=== PATIENT | female | born 1980 ===

== ENCOUNTER 2020-03-18 09:37 | Outpatient (REF) | payer OTHER, SELFPAY | END 2020-03-18 09:38 | disposition home or self-care (01) | LOC: HO.LAB 09:37 | PROVIDERS: PCP Internal Medicine; Visit Provider Internal Medicine | DX: Z20.828 Contact with and (suspected) exposure to other viral communicable diseases (principal) | CPT/HCPCS: C9803; U0003 ==

== ENCOUNTER 2020-03-24 15:59 | Outpatient (REF) | payer OTHER, SELFPAY ==
--- NOTE | 2020-03-24 | MR_ITS ---
EXAMINATION: MR BRAIN WITHOUT AND WITH CONTRAST CLINICAL INFORMATION: Pituitary microadenoma. COMPARISON: Brain MRI 05/15/2019. TECHNIQUE: Multiplanar MR imaging of the brain was performed without and with contrast. A total of 5 mL Gadavist was utilized for this examination.. FINDINGS: Again there is a well marginated enhancing intrasellar mass located along the right inferolateral aspect of the interlobar the pituitary gland best illustrated on sagittal image 11 of 18 series 11 that appears essentially unchanged when compared to most recent prior examination from 05/15/2019. The height of the pituitary tissue remains within limits of normal variation. No suprasellar mass effect or chiasmatic compression. The pituitary stalk is midline. Cavernous sinuses enhance symmetrically. Cavernous internal carotid artery flow voids are maintained. Postcontrast images of the whole brain reveal an ill-defined focus of enhancement within the alfredo to the right of midline. There is no corresponding abnormality demonstrated on the axial T2 FLAIR acquisition and enhancement characteristics have remained stable when compared to prior imaging. 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 There are a few scattered nonspecific foci of T2 FLAIR show hyperintensity within the periventricular white matter. No acute territorial infarct. Intracranial vascular flow voids are maintained. The cervicomedullary junction is normal. No acute bone marrow signal changes. There is no mastoid or middle ear effusion. Trivial mucosal thickening within ethmoid air cells. Globes and orbits are symmetric. MR/MR head/brain wo/w con IMPRESSION: Stable examination. The size of enhancing intrasellar mass along the right inferolateral aspect of the pituitary gland presumably representing a microadenoma has remained unchanged. 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
== END 2020-03-24 16:00 | disposition home or self-care (01) ==
LOC: HO.MRI 15:59
PROVIDERS: PCP Internal Medicine; Visit Provider Internal Medicine Endocrinology, Diabetes & Metabolism
DX: D35.2 Benign neoplasm of pituitary gland (principal)
CPT/HCPCS: 70553; A9585

== ENCOUNTER 2020-05-13 14:56 | Outpatient (REF) | payer OTHER, SELFPAY ==
[2020-05-13 16:39] LABS: Basophils Absolute Auto 0.1 X10*3/uL (0.0-0.2); Basophils Percent Auto 0.8 % (0-2); Eosinophils Absolute Auto 0.2 X10*3/uL (0.0-0.4); Eosinophils Percent Auto 2.3 % (0-4); Hematocrit 27.9 % (37-47); Hemoglobin 7.5 g/dl (12.0-16.0); Imm Gran Abs Auto 0.04 X10*3/uL (0.00-0.03); Imm Gran Pct Auto 0.4 % (0.0-0.4); Lymphocytes Absolute Auto 2.8 X10*3/uL (1.2-4.9); Lymphocytes Percent Auto 28.5 % (20-40); Mean Corpuscular HGB Conc 26.9 g/dl (31.0-35.0); Mean Platelet Volume 10.4 fL (9.4-12.3); Monocytes Absolute Auto 0.9 X10*3/uL (0.1-1.2); Monocytes Percent Auto 8.7 % (2-11); Neutrophils Absolute Auto 5.9 X10*3/uL (2.0-8.3); Neutrophils Percent Auto 59.3 % (45-73); Platelet Count 524 X10*3/uL (160-400); Red Blood Count 4.42 X10*6/uL (4.20-5.50); Red Cell Distribution Width 20.2 % (11.0-16.0); White Blood Count 9.9 X10*3/uL (4.8-10.8)
[2020-05-13 16:51] LABS: MANUAL DIFF FLAG SCAN; Mean Corpuscular Volume 63.1 fL (80-98)
[2020-05-13 17:02] LABS: Iron 16 mcg/dL (30-160); Percent Iron Saturation 3 % (15-50); Total Iron Binding Capacity 492 mcg/dL (228-428); Unsaturated Iron Binding 476 ug/dL
[2020-05-13 17:22] LABS: Syphilis Screen Nonreactive (Nonreactive)
[2020-05-13 17:34] LABS: Folate 13.9 ng/mL (> or = 4.0); Vitamin B12 189 pg/mL (200-900)
[2020-05-13 17:55] LABS: SLIDE REVIEW VERIFIED
[2020-05-14 04:44] LABS: HBsAGNum1 0.23 S/CO (0.00-0.99); HIV AB/AG Nonreactive (Nonreactive); HIV Num 1 0.07 S/CO (0.00-0.99); Hepatitis B Surface Antigen Negative (Negative); ~HepC Num1 0.18 S/CO (0.00-0.79); ~Hepatitis C Antibody Nonreactive (Nonreactive)
[2020-05-14 06:32] LABS: Prolactin 19.4 ng/mL
[2020-05-14 09:00] LABS: BV Int Neg Control Negative (Negative); BV Int Pos Control Positive (Positive)
[2020-05-14 17:38] LABS: C. trachomatis RNA TMA NOT DETECTED (NOT DETECTED); N. gonorrhoeae RNA TMA NOT DETECTED (NOT DETECTED)
[2020-05-17 00:42] LABS: HPV 16 RNA NOT DETECTED (NOT DETECTED); HPV mRNA E6/E7 rflx Detected (Not Detected)
== END 2020-05-13 14:57 | disposition home or self-care (01) ==
LOC: HO.LAB 14:56
PROVIDERS: PCP Internal Medicine; Visit Provider Advanced Practice Midwife
DX: Z01.411 Encounter for gynecological examination (general) (routine) with abnormal findings (principal); N63.20 Unspecified lump in the left breast, unspecified quadrant; N89.8 Other specified noninflammatory disorders of vagina; B37.2 Candidiasis of skin and nail; Z20.2 Contact with and (suspected) exposure to infections with a predominantly sexual mode of transmission
CPT/HCPCS: 36415; 82607; 82746; 83540; 84146; 85025; 85060; 86780; 86803; 87340; 87389; 87480; 87491; 87510; 87591; 87624; 87625; 87660; 88141; 88142

== ENCOUNTER 2020-05-21 08:14 | Outpatient (REF) | payer OTHER, SELFPAY ==
--- NOTE | 2020-05-21 | US_ITS ---
EXAMINATION: US DIAGNOSTIC ULTRASOUND BREAST, RIGHT CLINICAL INFORMATION: Density superior medial aspect. COMPARISON: Mammography of same day and December 14, 2016.. TECHNIQUE: Ultrasound of the breast is performed with real-time thrasher scale imaging and color Doppler. FINDINGS: Left breast ultrasound did not demonstrate any abnormal cystic or solid masses. No edematous change is identified. No region of abnormal distal sound shadowing. Ultrasound scanning about the superior medial aspect of the left breast did not demonstrate any abnormal cystic or solid mass or region of abnormal distal sound shadowing identified. Attempt at stereotactic core biopsy from a superior approach is recommended. Results are discussed with the patient at time of visit. [facility] patient navigator will call recommendation to referring provider's office. US/US breast RT limited IMPRESSION: Indeterminate persistent lesion on mammography about the superior medial aspect of the right breast with no ultrasound correlate. Recommend attempt at stereotactic biopsy. If this is not possible recommend 6 month follow-up mammography. ASSESSMENT: BI-RADS 4: Suspicious RECOMMENDATION: Right breast stereotactic core biopsy.
--- NOTE | 2020-05-21 08:20 | MM_ITS ---
EXAMINATION: MM DIAGNOSTIC DIGITAL BREAST TOMOSYNTHESIS, BILATERAL Bilateral breast ultrasound CLINICAL INFORMATION: Left breast lump/pain. The lifetime risk of breast cancer based on the Tyrer-Cuzick Model is 7.4%. COMPARISON: Mammography: 01/14/2017 TECHNIQUE: Digital breast tomosynthesis is performed in both the craniocaudal and mediolateral oblique views along with computer-aided detection (CAD). Synthesized 2D images are generated from the tomosynthesis. Right craniocaudal spot compression view as well as right craniocaudal rolled medial and lateral views. FINDINGS: There are scattered areas of fibroglandular density (ACR BI-RADS breast composition Category b). Left breast has a stable parenchymal pattern with no new abnormal dominant mass or suspicious grouping of microcalcifications. No region of architectural distortion is seen. Examination of the right breast demonstrated a 5 mm density of question slightly irregular margins about the superior medial aspect of the right breast lying approximately 7 cm from the nipple. Left breast ultrasound did not demonstrate any abnormal cystic or solid masses. No edematous change is identified. No region of abnormal distal sound shadowing. Ultrasound scanning about the superior-medial aspect of the left breast did not demonstrate any abnormal cystic or solid mass. No region of abnormal distal sound shadowing identified. Attempt at stereotactic core biopsy from a superior approach is recommended. Results are discussed with the patient at time of visit. [facility] Patient Navigator will call recommendation to referring provider's office. MM/MM tomosynthesis diagnostic BI IMPRESSION: Indeterminate persistent lesion on mammography about the superior-medial aspect of the right breast with no ultrasound correlate. Recommend attempt at stereotactic biopsy. If this is not possible, recommend 6-month follow-up mammography. No suspicious left breast findings. ASSESSMENT: BI-RADS 4: Suspicious. RECOMMENDATION: Right breast stereotactic core biopsy.
--- NOTE | 2020-05-21 08:20 | US_ITS ---
EXAMINATION: US DIAGNOSTIC ULTRASOUND BREAST, LEFT CLINICAL INFORMATION: Pain/lump left breast. COMPARISON: Mammography of same day and December 14, 2016. TECHNIQUE: Ultrasound of the breast is performed with real-time thrasher scale imaging and color Doppler. FINDINGS: Left breast ultrasound did not demonstrate any abnormal cystic or solid masses. No edematous change is identified. No region of abnormal distal sound shadowing. Ultrasound scanning about the superior medial aspect of the left breast did not demonstrate any abnormal cystic or solid mass or region of abnormal distal sound shadowing identified. Attempt at stereotactic core biopsy from a superior approach is recommended. Results are discussed with the patient at time of visit. [facility] patient navigator will call recommendation to referring provider's office. US/US breast LT limited IMPRESSION: Indeterminate persistent lesion on mammography about the superior medial aspect of the right breast with no ultrasound correlate. Recommend attempt at stereotactic biopsy. If this is not possible recommend 6 month follow-up mammography. ASSESSMENT: BI-RADS 4: Suspicious RECOMMENDATION: Right breast stereotactic core biopsy.
== END 2020-05-21 08:15 | disposition home or self-care (01) ==
LOC: HO.MAMMO 08:14
PROVIDERS: Visit Provider Advanced Practice Midwife
DX: N63.21 Unspecified lump in the left breast, upper outer quadrant (principal); R92.2 Inconclusive mammogram
CPT/HCPCS: 76642; 77062; 77066

== ENCOUNTER → 2020-05-22 09:19 | Outpatient (BNVA) | payer OTHER, SELFPAY | PROVIDERS: PCP Internal Medicine; Referring Provider Internal Medicine; Visit Provider Internal Medicine Endocrinology, Diabetes & Metabolism ==

== ENCOUNTER → 2020-05-26 10:53 | Outpatient (BNVA) | payer OTHER, SELFPAY | PROVIDERS: PCP Internal Medicine; Visit Provider Surgery | DX: R92.8 Other abnormal and inconclusive findings on diagnostic imaging of breast (principal) | CPT/HCPCS: 99202 ==

== ENCOUNTER 2020-05-27 09:55 | Outpatient (REF) | payer OTHER, SELFPAY ==
--- NOTE | ~2020-05-27 | US_ITS ---
EXAMINATION: STEREOTACTIC TOMOSYNTHESIS TARGETING, RIGHT US DIAGNOSTIC ULTRASOUND, RIGHT CLINICAL INFORMATION: Indeterminate nodule superior 12:30 o'clock right breast with no ultrasound correlate. Attempted stereotactic sampling is suggested. COMPARISON: Mammography 05/21/2020, 12/14/2016, targeted right breast ultrasound 05/21/2020. STEREO TARGETING: Informed consent was obtained from the patient using hospital provided housing case manager after discussion of the benefits, risks, and alternatives to biopsy today. Patient appeared to understand. Gave opportunity for questions. Patient signed consent form. [employer] Affirm Prone Biopsy System used for targeting from a CC approach. The nodule is identified but resides on initial tomographic sections at skin level. BB placed and breast rolled and reimaged with similar outcome. No other nodularity demonstrated. Skin marker used to for cervical around area of stereotactic targeting. Patient then brought to ultrasound for further diagnostic ultrasound assessment to determine if a intradermal lesion or subdermal lesion can be identified. ULTRASOUND, RIGHT: High frequency linear ultrasound is performed targeted to the area of stereotactic interest. Grayscale imaging is performed without and with harmonics and color Doppler. FINDINGS: No cystic or solid mass or focal dermal thickening is demonstrated. MANAGEMENT: Stereotactic targeting suggest superficial lesion within the skin. No ultrasound correlate. Tissue sampling not performed. Results are discussed with the patient at time of appointment. Results called and discussed with Dr. Holland along with management options including surgical excision if palpable, short interval 6 month follow up mammography, and diagnostic breast MRI. Patient asked to keep appointment with Dr. Holland for next week. ASSESSMENT: BI-RADS 3: Probably Benign RECOMMENDATIONS: Patient to follow up appointment with Dr. Holland. Diagnostic right mammography in 6 months.
== END 2020-05-27 09:56 | disposition home or self-care (01) ==
LOC: HO.MAMMO 09:55
PROVIDERS: Visit Provider Surgery
DX: R92.8 Other abnormal and inconclusive findings on diagnostic imaging of breast (principal)
CPT/HCPCS: 19081; 76642

== ENCOUNTER → 2020-06-10 09:32 | Outpatient (BNVA) | payer OTHER, SELFPAY | PROVIDERS: PCP Internal Medicine; Visit Provider Surgery | DX: R92.8 Other abnormal and inconclusive findings on diagnostic imaging of breast (principal) | CPT/HCPCS: 99212 ==

== ENCOUNTER 2020-06-22 08:42 | Day surgery (SDC) | payer OTHER, SELFPAY ==
[2020-06-12 11:40] VITALS: BMI 44.6
[2020-06-22] MEDS: Lactated Ringers 1,000 ML 100 ML IVCONT (10:08)
[2020-06-22 10:09] VITALS: BP 94/53; PULSE 51; RESP 16; TEMP 36.8; O2SAT 99
--- NOTE | 2020-06-22 10:27 | MHC.SHP ---
Pre-Procedural Eval Section A The patient is an INPATIENT: No Changes since office visit: Yes Patient answered all questions; No Cold of Flu in the past 2 weeks, No New Medical Problems and No Changes in Medication The History & Physical has been completed within 30 days and I have reviewed it.: Yes Section B Chief Complaint: Abnormal mammogram of right breast Allergies: Allergies Allergy/AdvReac Type Severity Reaction Status Date / Time No Known Allergies Allergy Verified 06/10/20 09:48 [No Known Allergies*] Plan Diagnosis/Plan: Unchanged I have reviewed the history and physical and performed a pertinent physical examination on my patient. No changes have occurred unless specified.
--- NOTE | 2020-06-22 10:33 | HO.ANESPROP2 ---
[facility] Active Problems Active Problems: All Active Problems (Updated 06/12/20 @ 11:21 by Renata Darden) Abnormal mammogram of right breast (Acute) Michael's disease (Acute) Lumbar radiculopathy (Acute) Headache (Acute) Pituitary microadenoma (Acute) Anemia (Acute) Past Medical History Medical History Anemia Anxiety Depression Michael's disease Headache Lumbar radiculopathy Morbid obesity with BMI of 50.0-59.9, adult Panic attacks Pituitary microadenoma Family History Family History Father Hypertension Mother Hypertension Maternal Grandmother Leukemia Paternal Grandmother Myocardial infarction Hypertension Maternal Aunt History of breast cancer Maternal Aunt History of breast cancer Maternal Aunt History of breast cancer Paternal Aunt History of breast cancer Paternal Aunt History of breast cancer Family history of problems with anesthesia: No Surgical History Surgical History History of appendectomy History of laparoscopic cholecystectomy History of Lulu-en-Y gastric bypass History of sleeve gastrectomy History of tubal ligation History of tympanostomy tube placement History of Problems with Anesthesia: No Social History Social History Household Members: Family Are you a primary healthcare marketer to a significant other at home: No Do you presently have visiting nurse or other home services: No Smoking Status: Never smoker Use of substances other than those prescribed or required for medical reasons: No Have you been hit, kicked, punched, or otherwise hurt by someone within the past year? If so, by whom?: No Advance Directives: No Advance Directives Information Provided: No Advance Directives on File: No Recently lost weight without trying: No Meds Allergies Allergy/AdvReac Type Severity Reaction Status Date / Time No Known Allergies Allergy Verified 06/10/20 09:48 [No Known Allergies*] Active Medications: Current Medications Generic Name Dose Route Start Last Admin Trade Name Freq PRN Reason Stop Dose Admin Lactated Ringer's 1,000 mls @ 100 mls/hr 06/22/20 09:15 06/22/20 10:08 Lr IVCONT 100 mls/hr .Q10H PHILIP Administration Home Medications Medication Instructions Recorded Confirmed Last Taken Type sumatriptan succinate 1 tab PO DIRECTED PRN 06/12/20 06/12/20 Unknown History topiramate 1 tab PO DAILY 06/12/20 06/12/20 Unknown History Exam Exam Date and Time: June 22, 2020 1033 Height,Weight and Vital Signs: Height 5 ft 2 in Weight 110.677 kg Last Vital Signs Temp 98.2 F 06/22/20 10:09 Pulse 51 06/22/20 10:09 Resp 16 06/22/20 10:09 BP 94/53 L 06/22/20 10:09 Pulse Ox 99 06/22/20 10:09 Airway Mallampati Class: I TM Dist: >3cm Neck ROM: Full Heart: ok Lungs: ok Assessment and Plan Assessment Anesthesia Assessment: Anesthesia Plan Discussed and Chart Reviewed Final Anesthetic Review NPO: Yes ASA Class: III Final Preanesthetic Review: No Changes in Pt Med Stat, Meds/Allgs Chart Reviewed, Consent Obtained/Reviewed and Anes Risks/Benef Reviewed Patient Risk: Intermediate Procedure Risk: Low Anesthetic Plan Anesthetic Plan: MAC: Disposition: Standard PACU
--- NOTE | 2020-06-22 11:18 | P.OP_ITS ---
Operative Note Operative Note Date of Service: 06/22/20 Narrative: Preoperative diagnosis: Right breast mass Postoperative diagnosis: Same Procedure: Excision right breast mass Surgeon: Melchor Holland MD Production Control Scheduler: Pura Sanchez PA-C Anesthesia: Mac Indications for procedure: 40-year-old female patient presenting with a palpable mass in the right breast. Lesion could not be identified by mammogram or ultrasound. On examination lesion is located in the 1 o'clock position. Operative findings: Palpable mass measuring approximately 1 cm in diameter located within the superficial breast tissue Specimen: Right breast mass Estimated blood loss: 5 mL Complications: None Procedure details: Patient was brought to the OR placed in a supine position. After administering light sedation the patient's right breast was prepped with ChloraPrep and draped in a sterile fashion. A surgical time-out was called and consent confirmed. Patient received preoperative antibiotics and Venodyne boots were in place. Local anesthesia consisting of 1% lidocaine plain was infiltrated directly over the mass in a transverse fashion. A transverse incision was then created with a scalpel carried out through subcutaneous tissue. Superior and inferior skin flaps were then created. Sharp dissection using Metzenbaum scissors was then used to excise around the palpable mass. The margins of this specimen were then marked using a long suture on the lateral margin short suture on the superior margin and loop suture on the deep margin. The specimen was sent to pathology for routine pathology. After assuring adequate hemostasis the skin was closed using a running eddy bcuticular 4 0 Polysorb suture. Steri-Strips 2 x 2 gauze and Tegaderm were then applied. Patient tolerated the procedure well. Sponge, instrument, needle counts reported as correct. The patient was transferred to PACU in stable condition.
--- NOTE | 2020-06-22 11:25 | P.BOP_ITS ---
Brief Operative Note Date of Service: 06/22/20 Pre-op diagnosis: right breast mass Post-op diagnosis: same Procedure: excision of right breast mass Surgeon: BEAR MONAHAN MD Anesthesia: MAC [employer] Regrooving Machine Operator: Pura Sanchez Estimated blood loss (mL): 5 Pathology: other (RIGHT BREAST MASS) Condition: stable Disposition: PACU
[2020-06-22 11:32] VITALS: BP 98/62; PULSE 53; RESP 16; TEMP 36; O2SAT 100
[2020-06-22 11:45] VITALS: BP 118/60; PULSE 49; RESP 18
== END 2020-06-22 12:50 ==
LOC: HO.SSS 08:43
PROVIDERS: PCP Internal Medicine; Visit Provider Surgery
PROC: (CPT 19120; principal; 2020-06-22 10:20)
DX: N63.12 Unspecified lump in the right breast, upper inner quadrant (principal); E06.3 Autoimmune thyroiditis; D64.9 Anemia, unspecified; F32.9 Major depressive disorder, single episode, unspecified; E66.01 Morbid (severe) obesity due to excess calories; Z68.41 Body mass index [BMI] 40.0-44.9, adult; Z79.899 Other long term (current) drug therapy
CPT/HCPCS: 19120; 88307; J0690; J2250; J3010

== ENCOUNTER → 2020-07-03 09:01 | Outpatient (BNVA) | payer OTHER, SELFPAY | PROVIDERS: PCP Internal Medicine; Visit Provider Surgery | DX: R92.8 Other abnormal and inconclusive findings on diagnostic imaging of breast (principal) | CPT/HCPCS: 99212 ==

== ENCOUNTER 2020-08-25 07:55 | Outpatient (REF) | payer OTHER, SELFPAY ==
[2020-08-26 08:18] LABS: HBsAGNum1 0.27 S/CO (0.00-0.99); Hepatitis B Surface Antigen Negative (Negative)
[2020-08-26 08:34] LABS: HIV AB/AG Nonreactive (Nonreactive); HIV Num 1 0.06 S/CO (0.00-0.99); ~HepC Num1 0.18 S/CO (0.00-0.79); ~Hepatitis C Antibody Nonreactive (Nonreactive)
[2020-08-26 09:20] LABS: Syphilis Screen Nonreactive (Nonreactive)
== END 2020-08-25 07:56 | disposition home or self-care (01) ==
LOC: HO.LAB 07:55
PROVIDERS: PCP Internal Medicine; Visit Provider Obstetrics & Gynecology
DX: A60.00 Herpesviral infection of urogenital system, unspecified (principal)
CPT/HCPCS: 86780; 86803; 87255; 87340; 87389; 99212

== ENCOUNTER 2020-09-04 16:42 | Outpatient (REF) | payer OTHER, SELFPAY ==
[2020-09-05 10:20] LABS: CT PCR NOT DETECTED (Not Detect.); NG PCR NOT DETECTED (Not Detect.)
== END 2020-09-04 16:43 | disposition home or self-care (01) ==
LOC: HO.LNP 16:42
PROVIDERS: Visit Provider Obstetrics & Gynecology
DX: Z11.3 Encounter for screening for infections with a predominantly sexual mode of transmission (principal); A60.00 Herpesviral infection of urogenital system, unspecified
CPT/HCPCS: 87491; 87591

== ENCOUNTER → 2020-09-08 08:01 | Outpatient (BNVA) | payer OTHER, SELFPAY | PROVIDERS: PCP Internal Medicine; Visit Provider Obstetrics & Gynecology | DX: A60.00 Herpesviral infection of urogenital system, unspecified (principal) | CPT/HCPCS: 99212 ==

== ENCOUNTER 2020-11-24 13:37 | Outpatient (REF) | payer OTHER, SELFPAY | END 2020-11-24 13:38 | disposition home or self-care (01) | LOC: HO.MAMMO 13:37 | PROVIDERS: PCP Internal Medicine; Visit Provider Surgery | DX: Z13.89 Encounter for screening for other disorder (principal) ==

== ENCOUNTER 2021-03-01 06:04 | Emergency (ER) | payer OTHER, SELFPAY ==
[2021-03-01 06:32] VITALS: BP 116/46; PULSE 55; RESP 16; TEMP 36.9; O2SAT 100; BMI 44.8
--- NOTE | 2021-03-01 06:39 | ED_ITS ---
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 This has not been associated with any fever, chills, sick contacts. Related Data Home Medications Medication Instructions Recorded Confirmed sumatriptan succinate 25 mg tablet 1 tab PO DIRECTED PRN 06/12/20 09/02/20 topiramate 25 mg tablet 1 tab PO DAILY 06/12/20 09/02/20 cyanocobalamin (vitamin B-12) 1,000 mcg PO DAILY 07/03/20 09/02/20 1,000 mcg tablet Previous Rx's Medication Instructions Recorded acetaminophen 650 mg 650 mg PO Q8H PRN 30 Days #90 tab 05/13/20 tablet,extended release (Mapap Arthritis Pain) folic acid 1 mg tablet 1 mg PO DAILY 90 Days #90 tab 05/13/20 metronidazole 0.75 % vaginal gel 1 appful VAGINAL BEDTIME 5 Days 05/22/20 (Metrogel Vaginal) #70 g valacyclovir 1 gram tablet 1,000 mg PO BID 10 Days #20 tab 08/25/20 sennosides 8.6 mg capsule (senna) 8.6 mg PO BEDTIME PRN 90 Days #90 09/02/20 cap valacyclovir 500 mg tablet 500 mg PO BID 3 Days #6 tab 09/08/20 (Valtrex) ferrous sulfate 325 mg (65 mg 325 mg PO TID 30 Days #90 tab 12/14/20 iron) tablet Allergies Allergy/AdvReac Type Severity Reaction Status Date / Time No Known Allergies Allergy Verified 03/01/21 06:47 [No Known Allergies*] Review of Systems Review of Systems: Pertinent positives and negatives as stated in HPI 10 point review systems is otherwise negative. [facility] Past Medical History Source: nursing notes reviewed Medical History Anemia Anxiety B12 deficiency Constipation by delayed colonic transit Depression Michael's disease Headache Iron deficiency anemia Lumbar radiculopathy Morbid obesity with BMI of 50.0-59.9, adult Panic attacks Pituitary microadenoma Surgical History History of appendectomy History of laparoscopic cholecystectomy History of Lulu-en-Y gastric bypass History of sleeve gastrectomy History of tubal ligation History of tympanostomy tube placement Family History Family History Father Hypertension Mother Hypertension Maternal Grandmother Leukemia Paternal Grandmother Myocardial infarction Hypertension Maternal Aunt History of breast cancer Maternal Aunt History of breast cancer Maternal Aunt History of breast cancer Paternal Aunt History of breast cancer Paternal Aunt History of breast cancer Social History Social History Household Members: Family Are you a primary care companion to a significant other at home: No Do you presently have visiting nurse or other home services: No Advance Directives: No Advance Directives Information Provided: No Patient : No Physical Exam Vital Signs: Vital Signs: Last Vital Signs Temp 98.4 F 03/01/21 06:32 Pulse 55 03/01/21 06:32 Resp 16 03/01/21 06:32 BP 116/46 L 03/01/21 06:32 Pulse Ox 100 03/01/21 06:32 Body Mass Index 44.8 VITAL SIGNS: Reviewed. GENERAL: Well developed, well nourished, in no acute distress. HEAD: Normocephalic/atraumatic EYES: PERRLA, EOMI EARS: Ext canals without abnormality, TMs non-bulging and non-erythematous, small P-sized lymph node behind the left ear without erythema/induration but tenderness on palpation NOSE: Nares patent bilateral OROPHARYNX: no oral lesions noted, posterior pharynx clear with erythematous without tonsillar enlargement or exudate NECK: Supple, no adenopathy LUNGS: Normal breath sounds. No adventitious sounds or accessory muscle use. SpO2<100> CARDIOVASCULAR: Regular rate and rhythm without noted murmurs ABDOMEN: Soft, non-tender, non-distended with bowel sounds. SKIN: Inspection of the skin reveals no rashes NEUROLOGIC: Alert and oriented x 4. Strength and sensation to light touch were grossly intact x 4. Course Course Course Narrative: 40-year-old female with history and clinical presentation suggestive of pharyngitis but no evidence to support AOM. The small lymphadenopathy noted at the posterior left ear likely reactive in nature. Patient will receive combination analgesics and is pending strep/COVID swab. Signed out to Dr Rodney. Discharge Plan Discharge Clinical Impression: Pharyngitis, Adenopathy Patient Disposition: Still a Patient Instructions: Pharyngitis (ED) Additional Instructions: 1. Tylenol 1000 mg, por v?a oral, cada 6 horas seg?n sea necesario para controlar el dolor. No exceda los 4000 mg en 24 horas. 2. Ibuprofeno 400 mg, por v?a oral con leche o alimentos, cada 6 horas seg?n sea necesario para controlar el dolor. 3. g?rgaras con soluci?n salina (esto se hace mezclando amari de lin con agua tibia del grifo) Regrese a la liborio de emergencias por un empeoramiento alissa de los s?ntomas. Prescriptions: No Action acetaminophen [Mapap Arthritis Pain] 650 mg tablet extended release 650 mg PO Q8H PRN (Reason: pain) 30 Days Qty: 90 RF: 3 folic acid 1 mg tablet 1 mg PO DAILY 90 Days Qty: 90 RF: 3 metronidazole [Metrogel Vaginal] 0.75 % gel 1 appful vaginal BEDTIME 5 Days Qty: 70 RF: 0 ferrous sulfate 325 mg (65 mg iron) tablet 325 mg PO TID 30 Days Qty: 90 RF: 6 sumatriptan succinate 25 mg tablet 1 tab PO DIRECTED PRN (Reason: Headache) RF: 0 topiramate 25 mg tablet 1 tab PO DAILY RF: 0 senna 8.6 mg capsule 8.6 mg PO BEDTIME PRN (Reason: constipation) 90 Days Qty: 90 RF: 1 cyanocobalamin (vitamin B-12) 1,000 mcg tablet 1,000 mcg PO DAILY RF: 0 valacyclovir 1 gram tablet 1,000 mg PO BID 10 Days Qty: 20 RF: 0 valacyclovir [Valtrex] 500 mg tablet 500 mg PO BID 3 Days Qty: 6 RF: 6 Referrals: Ila Brown MD [Primary Care Provider] - 2 days Print Language: Bulgarian
[2021-03-01] MEDS: Acetaminophen 325 MG TABLET 975 MG PO (06:46)
[2021-03-01 07:07] LABS: IDNOW Serial# 08D9AD1C; Strep A Nucleic Acid Negative (Negative)
[2021-03-01 07:08] LABS: COVID-19 Test Negative (Negative); IDNOW Serial# 9DD0AD1C
[2021-03-01 07:58] VITALS: BP 99/48; PULSE 60; RESP 18; TEMP 36.6; O2SAT 100
== END 2021-03-01 08:05 | disposition still patient (30) ==
PROVIDERS: Student in an Organized Health Care Education/Training Program; Emergency Provider Emergency Medicine; PCP Internal Medicine
DX: J02.9 Acute pharyngitis, unspecified (principal); R59.9 Enlarged lymph nodes, unspecified; Z20.822 Contact with and (suspected) exposure to COVID-19
CPT/HCPCS: 36415; 87635; 87651; 99283; 99284

== ENCOUNTER 2021-05-24 13:10 | Outpatient (REF) | payer OTHER, SELFPAY ==
--- NOTE | ~2021-05-24 | MM_ITS ---
EXAMINATION: MM DIAGNOSTIC DIGITAL BREAST TOMOSYNTHESIS, BILATERAL CLINICAL INFORMATION: Due for yearly. Status post benign right breast surgery 06/22/2020 (benign breast tissue with ruptured cyst, no atypia or malignancy identified). Family history breast cancer, mother. The lifetime risk of breast cancer based on the Tyrer-Cuzick Model is 21.1%. COMPARISON: Mammography: 05/27/2020, 05/21/2020, 12/14/2016 (baseline, diagnostic). TECHNIQUE: Digital breast tomosynthesis is performed in both the craniocaudal and mediolateral oblique views along with computer-aided detection (CAD). Synthesized 2D images are generated from the tomosynthesis. Scar marker placed on right CC and right MLO views. FINDINGS: There are scattered areas of fibroglandular density (ACR BI-RADS breast composition Category b). There are no significant masses, abnormal calcifications, or other abnormalities. Superficial nodular lesion noted previously is no longer demonstrated. Parenchymal pattern is otherwise similar to prior studies. No developing density or interval architectural abnormality. Results are provided to the patient at time of visit by the technologist. MM/MM tomosynthesis diagnostic BI IMPRESSION: No mammographic evidence of malignancy. ASSESSMENT: BI-RADS 2: Benign RECOMMENDATION: 1. Routine annual mammography screening. 2. The lifetime risk of breast cancer based on the Tyrer-Cuzick Model is 21%. Additional annual adjunct screening with breast MRI may be of benefit in women with a risk score of 20% or greater. This patient's information was entered into a reminder system with a target due date for their next mammogram.
== END 2021-05-24 13:11 | disposition home or self-care (01) ==
LOC: HO.MAMMO 13:10
PROVIDERS: PCP Internal Medicine; Visit Provider Surgery
DX: R92.2 Inconclusive mammogram (principal)
CPT/HCPCS: 77062; 77066

== ENCOUNTER 2021-06-08 14:12 | Outpatient (REF) | payer OTHER, SELFPAY ==
[2021-06-08 18:12] LABS: CT PCR NOT DETECTED (Not Detect.); NG PCR NOT DETECTED (Not Detect.)
[2021-06-13 14:47] LABS: HPV 16 RNA NOT DETECTED (NOT DETECTED); HPV mRNA E6/E7 rflx Detected (Not Detected)
== END 2021-06-08 14:13 | disposition home or self-care (01) ==
LOC: HO.LAB 14:12
PROVIDERS: Visit Provider Obstetrics & Gynecology
DX: Z01.411 Encounter for gynecological examination (general) (routine) with abnormal findings (principal); Z11.51 Encounter for screening for human papillomavirus (HPV); N93.9 Abnormal uterine and vaginal bleeding, unspecified; Z20.2 Contact with and (suspected) exposure to infections with a predominantly sexual mode of transmission
CPT/HCPCS: 87491; 87591; 87624; 87625; 88142; 99212

== ENCOUNTER 2021-06-25 07:30 | Outpatient (REF) | payer OTHER, SELFPAY ==
[2021-06-25 08:18] LABS: Hematocrit 27.1 % (37.0-47.0); Hemoglobin 7.1 g/dl (12.0-16.0); Mean Corpuscular HGB Conc 26.2 g/dl (31.0-35.0); Mean Corpuscular Hemoglobin 16.2 pg (27.0-33.0); Mean Platelet Volume 10.2 fL (9.4-12.3); Platelet Count 495 X10*3/uL (160-400); Red Blood Count 4.38 X10*6/uL (4.20-5.50); Red Cell Distribution Width 21.2 % (11.0-16.0); White Blood Count 12.3 X10*3/uL (4.8-10.8)
[2021-06-25 08:19] LABS: Mean Corpuscular Volume 61.9 fL (80.0-98.0)
[2021-06-25 08:49] LABS: Alanine Aminotransferase 11 U/L (0-31); Albumin Level 3.8 g/dL (3.5-5.0); Alkaline Phosphatase 78 U/L (39-117); Anion Gap 12 (12-20); Aspartate Amino Transferase 13 U/L (5-31); Bilirubin Total 1.2 mg/dL (0.0-1.0); Blood Urea Nitrogen 22 mg/dL (9-16); Carbon Dioxide 24 mmol/L (22-29); Chloride 107 mmol/L (96-108); Cholesterol 149 mg/dL; Estimated Glomerular Filt Rate > 60; Glucose Fasting 78 mg/dL (60-99); HDL Cholesterol 45 mg/dL; Iron 14 mcg/dL (30-160); LDL Cholesterol Calculated 79 mg/dl; Percent Iron Saturation 3 % (15-50); Potassium 4.1 mmol/L (3.3-5.1); Sodium 139 mmol/L (135-145); Total Iron Binding Capacity 489 mcg/dL (228-428); Total Protein 6.9 g/dL (6.5-8.0); Triglycerides 127 mg/dL; Unsaturated Iron Binding 475 ug/dL
[2021-06-25 09:10] LABS: HCG Quantitative < 2 mIU/mL; TSH reflex Free T4 4.46 uIU/mL (0.32-4.0)
[2021-06-25 09:43] LABS: Free T4 (Free Thyroxine) 0.99 ng/dL (0.71-1.85)
[2021-06-25 13:23] LABS: Folate 9.7 ng/mL (> or = 4.0); Vitamin B12 269 pg/mL (200-900)
[2021-06-29 18:16] LABS: Intrinsic Factor Antibodies Negative (Negative)
[2021-06-30 12:17] LABS: Parietal Cell Antibody 26.7 Unit (<=20.0)
[2021-07-01 08:06] LABS: Vitamin D 25-OH, D2 <4 ng/mL; Vitamin D 25-OH, D3 16 ng/mL; Vitamin D 25-OH, Total 16 ng/mL (30-100)
== END 2021-06-25 07:31 | disposition home or self-care (01) ==
LOC: HO.LAB 07:30
PROVIDERS: Absent Provider Internal Medicine; PCP Internal Medicine; Visit Provider Obstetrics & Gynecology
DX: Z00.00 Encounter for general adult medical examination without abnormal findings (principal); E78.5 Hyperlipidemia, unspecified; D50.0 Iron deficiency anemia secondary to blood loss (chronic); E53.8 Deficiency of other specified B group vitamins; E55.9 Vitamin D deficiency, unspecified; N93.9 Abnormal uterine and vaginal bleeding, unspecified
CPT/HCPCS: 36415; 80053; 80061; 82306; 82607; 82746; 83516; 83540; 84439; 84443; 84702; 85027; 86340

== ENCOUNTER 2021-06-30 13:41 | Outpatient (REF) | payer OTHER, SELFPAY ==
--- NOTE | ~2021-06-30 | US_ITS ---
EXAMINATION: US PELVIS CLINICAL INFORMATION: Abnormal uterine and vaginal bleeding. COMPARISON: None TECHNIQUE: Ultrasound of the pelvis is performed using both transabdominal and transvaginal transducers along with Doppler. Transvaginal imaging is performed due to inadequate visualization transabdominally. FINDINGS: Uterus: The uterus is anteverted and measures 9.7 x 5.0 x 6.3 cm. The double wall endometrial thickness is 1.0 mm. The uterus is smooth in contour and has normal myometrial echogenicity. There is a 1.7 x 1.8 x 2.0 cm fibroid near the fundus on the left which is smaller than previously noted 2.1 x 2.4 x 2.1 cm. No other uterine masses are seen. Adnexa: Neither ovary could be seen despite both transabdominal and endovaginal scanning. No free intraperitoneal fluid is present. US/US pelvic and transvaginal IMPRESSION: Slight decrease in size of solitary uterine fibroid. The ovaries were not visualized.
== END 2021-06-30 13:42 | disposition home or self-care (01) ==
LOC: HO.US 13:41
PROVIDERS: PCP Internal Medicine; Visit Provider Obstetrics & Gynecology
DX: N93.9 Abnormal uterine and vaginal bleeding, unspecified (principal)
CPT/HCPCS: 76830; 76856

== ENCOUNTER 2021-07-01 16:22 | Outpatient (REF) | payer OTHER, SELFPAY ==
--- NOTE | ~2021-07-01 | MR_ITS ---
EXAMINATION: MR BREAST WITHOUT AND WITH CONTRAST, BILATERAL CLINICAL INFORMATION: High-risk screening. Risk of breast cancer greater than 20%. COMPARISON: No previous breast MRI. TECHNIQUE: Imaging was performed with a dedicated breast coil. Prior to the administration of contrast, bilateral axial T1 and bilateral axial T2 weighted sequences were obtained. After the uneventful administration of?10 mL of Gadavist, dynamic contrast-enhanced VIBRANT series through the breasts in the axial plane were performed. Subtracted images were performed and reviewed. A delayed sagittal sequence through both breasts was acquired. Additionally, CAD post-processing, including maximum intensity projections, 3-D reconstructions and kinetic analysis, were performed an independent workstation and reviewed by the interpreting radiologist is a portion of this exam. FINDINGS: The patient's fibroglandular tissue demonstrates moderate background enhancement. LEFT BREAST: No suspicious masslike or non-masslike enhancement. No abnormal skin thickening or nipple retraction. No abnormal architectural distortion. Review of the T2 weighted images demonstrates no fibrocystic changes or dilated ducts. Review of kinetic images reveals no additional findings. RIGHT BREAST: No suspicious masslike or non-masslike enhancement. No abnormal skin thickening or nipple retraction. No abnormal architectural distortion. Review of the T2 weighted images demonstrates no fibrocystic changes or dilated ducts. Review of kinetic images reveals no additional findings. There is no suspicious internal mammary chain or axillary adenopathy. Limited views of the chest and abdomen are unremarkable. MR/MR breast BI wo/w con IMPRESSION: No MR specific evidence of malignancy. ASSESSMENT: LEFT BREAST: BI-RADS 1-Negative RIGHT BREAST: BI-RADS 1-Negative RECOMMENDATIONS: Clinical follow-up
== END 2021-07-01 16:23 | disposition home or self-care (01) ==
LOC: HO.MRI 16:22
PROVIDERS: Visit Provider Obstetrics & Gynecology
DX: Z91.89 Other specified personal risk factors, not elsewhere classified (principal)
CPT/HCPCS: 77049; A9585

== ENCOUNTER → 2021-07-07 13:50 | Outpatient (BNVA) | payer OTHER, SELFPAY | PROVIDERS: PCP Internal Medicine; Visit Provider Internal Medicine Endocrinology, Diabetes & Metabolism | DX: D35.2 Benign neoplasm of pituitary gland (principal); R79.89 Other specified abnormal findings of blood chemistry | CPT/HCPCS: 99212 ==

== ENCOUNTER 2021-07-13 11:14 | Outpatient (REF) | payer OTHER, SELFPAY | END 2021-07-13 11:15 | disposition home or self-care (01) | LOC: HO.LAB 11:14 | PROVIDERS: Visit Provider Obstetrics & Gynecology | DX: R87.610 Atypical squamous cells of undetermined significance on cytologic smear of cervix (ASC-US) (principal); R87.810 Cervical high risk human papillomavirus (HPV) DNA test positive; N93.9 Abnormal uterine and vaginal bleeding, unspecified; R94.6 Abnormal results of thyroid function studies | CPT/HCPCS: 57454; 58100; 81025; 88305 ==

== ENCOUNTER 2021-07-20 16:10 | Outpatient (REF) | payer OTHER, SELFPAY ==
--- NOTE | ~2021-07-20 | MR_ITS ---
MRI OF THE BRAIN WITH AND WITHOUT IV CONTRAST INDICATION: Benign neoplasm of the pituitary gland. COMPARISON: Brain MRI 03/24/2020. TECHNIQUE: Multiplanar multisequence MR imaging of the brain was obtained without and following the administration of 5 mL of Gadavist without complication. FINDINGS: There is a stable appearing 8 mm hyperenhancing lesion within the right inferolateral aspect of the anterior pituitary lobe, most likely a pituitary microadenoma. Infundibulum remains midline. No mass effect on the optic nerve apparatus. Cavernous sinuses are symmetric and normal. Capillary telangiectasia incidentally noted again within the alfredo. Developmental venous anomaly within the right cerebellum. There is no hydrocephalus, extra-axial surface collection, or herniation. The major flow voids at the skull base are preserved. There is no acute infarct on diffusion-weighted imaging. There is no intracranial hemorrhage on the gradient recalled echo acquisition. The cerebellar tonsils are normally positioned. The cerebellum and brainstem are normal. The craniocervical junction is normal. Osseous marrow signal intensity is homogenous. The visualized soft tissues are unremarkable. MR/MR head/brain wo/w con IMPRESSION: There is a stable appearing 8 mm hyperenhancing lesion within the right inferolateral aspect of the anterior pituitary lobe, most likely a pituitary microadenoma.
== END 2021-07-20 16:11 | disposition home or self-care (01) ==
LOC: HO.MRI 16:10
PROVIDERS: Visit Provider Internal Medicine Endocrinology, Diabetes & Metabolism
DX: D35.2 Benign neoplasm of pituitary gland (principal)
CPT/HCPCS: 70553; A9585

== ENCOUNTER → 2021-08-04 15:05 | Outpatient (BNVA) | payer OTHER, SELFPAY | PROVIDERS: PCP Internal Medicine; Visit Provider Obstetrics & Gynecology | DX: R87.610 Atypical squamous cells of undetermined significance on cytologic smear of cervix (ASC-US) (principal); R87.810 Cervical high risk human papillomavirus (HPV) DNA test positive; N93.9 Abnormal uterine and vaginal bleeding, unspecified; D64.9 Anemia, unspecified; R94.6 Abnormal results of thyroid function studies; Z91.89 Other specified personal risk factors, not elsewhere classified | CPT/HCPCS: 99212 ==

== ENCOUNTER → 2021-08-23 15:03 | Outpatient (BNVA) | payer OTHER, SELFPAY | PROVIDERS: PCP Internal Medicine; Visit Provider Obstetrics & Gynecology | DX: N93.9 Abnormal uterine and vaginal bleeding, unspecified (principal) | CPT/HCPCS: 99212 ==

== ENCOUNTER → 2021-08-24 14:53 | Outpatient (BNVA) | payer OTHER, SELFPAY | PROVIDERS: PCP Internal Medicine; Referring Provider Obstetrics & Gynecology; Visit Provider Surgery | DX: Z91.89 Other specified personal risk factors, not elsewhere classified (principal) | CPT/HCPCS: 99212 ==

== ENCOUNTER 2021-08-27 06:00 | Day surgery (SDC) | payer OTHER, SELFPAY ==
--- NOTE | 2021-08-26 08:41 | HO.ANESPROP2 ---
Documented by User: Lola Alvarado NP 08/26/21 08:42 HPI - Anesthesia Eval Consult details Narrative: 41yo F for D&C Hysteroscopy,poss polypectomy/myomectomy and ablation PMFSH Active Problems Active Problems: All Active Problems (Updated 08/21/21 @ 13:15 by Ila Borden MD) Abnormal mammogram of right breast (Acute) Herpes genitalis (Acute) Well woman exam (Acute) At high risk for breast cancer (Acute) Abnormal uterine bleeding (AUB) (Acute) Morbid obesity with BMI of 40.0-44.9, adult (Acute) ASCUS with positive high risk HPV cervical (Acute) Abnormal thyroid blood test (Acute) Moderate recurrent major depression (Acute) Morbid obesity with BMI of 45.0-49.9, adult (Acute) Physical exam (Acute) Constipation by delayed colonic transit (Acute) B12 deficiency (Acute) Iron deficiency anemia (Acute) Michael's disease (Acute) Lumbar radiculopathy (Acute) Headache (Acute) Pituitary microadenoma (Acute) Anemia (Acute) Past Medical History Medical History Abnormal thyroid blood test Anemia Anxiety ASCUS with positive high risk HPV cervical B12 deficiency Cervical low risk human papillomavirus (HPV) DNA test positive Constipation by delayed colonic transit Depression Michael's disease Headache Iron deficiency anemia Lumbar radiculopathy Moderate recurrent major depression Morbid obesity with BMI of 40.0-44.9, adult Morbid obesity with BMI of 45.0-49.9, adult Morbid obesity with BMI of 50.0-59.9, adult Panic attacks Physical exam Pituitary microadenoma Family History Family History Father Hypertension Mother Hypertension Maternal Grandmother Leukemia Paternal Grandmother Myocardial infarction Hypertension Maternal Aunt History of breast cancer Maternal Aunt History of breast cancer Maternal Aunt History of breast cancer Paternal Aunt History of breast cancer Paternal Aunt History of breast cancer Family history of problems with anesthesia: No Surgical History Surgical History History of appendectomy History of laparoscopic cholecystectomy History of lumpectomy of right breast History of Lulu-en-Y gastric bypass History of sleeve gastrectomy History of tubal ligation History of tympanostomy tube placement History of Problems with Anesthesia: No Social History Social History Household Members: Family Housing: Apartment Are you a primary complex care nurse to a significant other at home: No Do you presently have visiting nurse or other home services: No Alcohol intake: never Patient Tobacco Use Status: Never used Tobacco e-Cigarette/Vaping Use: Never Used Second Hand Smoke Exposure: No Are you DNR?: No Advance Directives: No Advance Directives Information Provided: Yes service: No Current occupational status: unemployed Cognitive needs: No Hearing needs: No Vision needs: Yes Meds Allergies Allergy/AdvReac Type Severity Reaction Status Date / Time No Known Allergies Allergy Verified 08/24/21 15:41 [No Known Allergies*] Home Medications Medication Instructions Recorded Confirmed Last Taken Type cyanocobalamin (vitamin B-12) 1,000 mcg PO DAILY 07/03/20 08/25/21 Unknown History 1,000 mcg tablet Exam Exam Date and Time: August 26, 2021 0841 Pertinent Lab Results Pertinent Lab Results: Laboratory Tests 06/25/21 06/25/21 08:01 08:01 WBC 12.3 H Hgb 7.1 L Hct 27.1 L Plt Count 495 H Sodium 139 Potassium 4.1 Chloride 107 Carbon Dioxide 24 BUN 22 H Creatinine 0.61 Assessment and Plan Assessment Anesthesia Assessment: Chart Reviewed Final Anesthetic Review Family History of Problems with Anesthesia: No History of Problems with Anesthesia: No Documented by User: Susan Huddleston MD 08/27/21 07:12 [facility] Past Medical History Medical History Abnormal thyroid blood test Anemia Anxiety ASCUS with positive high risk HPV cervical B12 deficiency Cervical low risk human papillomavirus (HPV) DNA test positive Constipation by delayed colonic transit Depression Michael's disease Headache Iron deficiency anemia Lumbar radiculopathy Moderate recurrent major depression Morbid obesity with BMI of 40.0-44.9, adult Morbid obesity with BMI of 45.0-49.9, adult Morbid obesity with BMI of 50.0-59.9, adult Panic attacks Physical exam Pituitary microadenoma Family History Family History Father Hypertension Mother Hypertension Maternal Grandmother Leukemia Paternal Grandmother Myocardial infarction Hypertension Maternal Aunt History of breast cancer Maternal Aunt History of breast cancer Maternal Aunt History of breast cancer Paternal Aunt History of breast cancer Paternal Aunt History of breast cancer Surgical History Surgical History History of appendectomy History of laparoscopic cholecystectomy History of lumpectomy of right breast History of Lulu-en-Y gastric bypass History of sleeve gastrectomy History of tubal ligation History of tympanostomy tube placement Social History Social History Household Members: Family Housing: Apartment Are you a primary complex care nurse to a significant other at home: No Do you presently have visiting nurse or other home services: No Alcohol intake: never Patient Tobacco Use Status: Never used Tobacco e-Cigarette/Vaping Use: Never Used Second Hand Smoke Exposure: No Are you DNR?: No Advance Directives: No Advance Directives Information Provided: Yes service: No Current occupational status: unemployed Cognitive needs: No Hearing needs: No Vision needs: Yes Meds Allergies Allergy/AdvReac Type Severity Reaction Status Date / Time No Known Allergies Allergy Verified 08/24/21 15:41 [No Known Allergies*] Home Medications Medication Instructions Recorded Confirmed Last Taken Type cyanocobalamin (vitamin B-12) 1,000 mcg PO DAILY 07/03/20 08/25/21 Unknown History 1,000 mcg tablet Exam Airway Mallampati Class: II TM Dist: >3cm Neck ROM: Full Assessment and Plan Assessment Anesthesia Assessment: Anesthesia Plan Discussed Final Anesthetic Review NPO: Yes ASA Class: II Final Preanesthetic Review: No Changes in Pt Med Stat, Meds/Allgs Chart Reviewed, Consent Obtained/Reviewed and Anes Risks/Benef Reviewed Patient Risk: Low Procedure Risk: Low Anesthetic Plan Anesthetic Plan: GA Disposition: Standard PACU
[2021-08-27 06:08] VITALS: BP 149/77; PULSE 81; RESP 18; TEMP 36.3; O2SAT 98; BMI 45.3
[2021-08-27] MEDS: Lactated Ringers 1,000 ML 100 ML IVCONT (06:28)
[2021-08-27 06:40] LABS: Urine Pregnancy NEGATIVE (NEGATIVE)
[2021-08-27 06:41] LABS: UPreg QC Valid YES
--- NOTE | 2021-08-27 07:35 | MHC.SHP ---
Pre-Procedural Eval Section A Date of Service: 08/27/21 The patient is an INPATIENT: No Changes since office visit: No Cold of Flu in the past 2 weeks, No New Medical Problems, No Changes in Medication and No Patient answered all questions The History & Physical has been completed within 30 days and I have reviewed it.: Yes Section B Chief Complaint: Abnormal uterine and vaginal bleeding, Allergies: Allergies Allergy/AdvReac Type Severity Reaction Status Date / Time No Known Allergies Allergy Verified 08/24/21 15:41 [No Known Allergies*] Plan Diagnosis/Plan: Unchanged I have reviewed the history and physical and performed a pertinent physical examination on my patient. No changes have occurred unless specified.
--- NOTE | 2021-08-27 08:02 | PM.OP ---
Brief Operative Note Date of Service: 08/27/21 Pre-op diagnosis: Abnormal uterine bleeding with possible endometrial polyp Post-op diagnosis: same (Same with Normal endometrial cavity) Procedure: Hysteroscopy D&C with NovaSure Endometrial Ablation Surgeon: Shaka Wharton MD Anesthesia: MAC Was an Stock Mixer used for this Procedure?: No Estimated blood loss (mL): 0 Pathology: none sent (Endometrial scraping) Condition: stable Disposition: PACU
--- NOTE | 2021-08-27 08:04 | P.OP_ITS ---
Operative Note Operative Note Date of Service: 08/27/21 Narrative: Preop Diagnosis: Abnormal uterine bleeding with possible the endometrial polyp Operation: Diagnostic Hysteroscopy, Dilataion & Curettage with NovaSure endometrial ablation Post Op Diagnosis: The same with Normal endometrial cavity QBL: Minimal Anesthesia: MAC Surgeon: Shaka Wharton MD Critical Power Technician: None Complication: None Pathology: Endometrial Scrapings Procedure: The patient was put in the dorsal lithotomy position, scrubbed, and draped in the usual manner. A sterile speculum was inserted in the patient's vagina. The anterior lip of the cervix was grasped with a single tooth tenaculum. The cervix was dilated up to 5 mm, then the scope was inserted in the patient's uterus. Inspection revealed normal endometrial cavity. Sharp curettings was carried on after taking out the hysteroscope with moderate amount of tissues retrieved. The Myosure Reach device was used; At the end of the procedure, all instruments were taken out of the patient uterine and vaginal cavity. Taking care not to enter deep into the uterus, a sound was passed inside to measure the length of the uterus and cervix. This length was found to be 9.5 cm. Next, Hegar dilator was inserted into the cervical os to measure the cervical length which was 3 cm. This yielded an endometrial cavity length of 6.5 cm. . The Novasure device was then opened and tested; the fan deployed easily. The instrument was set to the correct cavity length and introduced into the uterine cavity. The fan was slowly deployed with gentle movements to ensure a snug fit within the cavity. The cavity width read 4.5 cm. The measurements were imported and a cavity check was done. The trumpet was then slid down to the cervix and the device was activated. The total burn time was 71 seconds. The fan was retracted and device removed. The fan was examined and revealed charred tissue. The tenaculum was removed and the cervix examined for hemostasis which was achieved using pressure. Finally the speculum was removed. The patient tolerated the procedure well and was brought to the recovery room in a stable condition. At the end of the procedure all sponges and instruments were counted and correct. The blood loss was minimal and there were no complications.
[2021-08-27 08:09] VITALS: BP 137/70; PULSE 75; RESP 16; TEMP 36.6; O2SAT 97
[2021-08-27 08:14] VITALS: BP 147/73; PULSE 64; RESP 16; O2SAT 97
[2021-08-27 08:19] VITALS: BP 143/86; PULSE 71; RESP 16; O2SAT 97
[2021-08-27 08:24] VITALS: BP 144/79; PULSE 60; RESP 16; TEMP 36.3; O2SAT 98
--- NOTE | 2021-08-27 08:56 | PC.NURSE ---
[facility] [place] [facility] Advanced Practice Nurse assisted with discharge instructions
== END 2021-08-27 08:50 | disposition home or self-care (01) ==
PROVIDERS: Visit Provider Obstetrics & Gynecology
PROC: 0UDB8ZZ Extraction of Endometrium, Via Natural or Artificial Opening Endoscopic (ICD-10-PCS; CPT 58558; principal; 2021-08-27 07:30)
DX: N93.9 Abnormal uterine and vaginal bleeding, unspecified (principal); D64.9 Anemia, unspecified; D50.9 Iron deficiency anemia, unspecified; D35.2 Benign neoplasm of pituitary gland; E53.8 Deficiency of other specified B group vitamins; E06.3 Autoimmune thyroiditis; F33.1 Major depressive disorder, recurrent, moderate; F41.1 Generalized anxiety disorder; E66.01 Morbid (severe) obesity due to excess calories; Z68.42 Body mass index [BMI] 45.0-49.9, adult; Z79.899 Other long term (current) drug therapy; Z98.84 Bariatric surgery status; Z98.51 Tubal ligation status
CPT/HCPCS: 58563; 81025; 88305; J1100; J2250; J2405; J3010

== ENCOUNTER → 2021-09-09 14:59 | Outpatient (BNVA) | payer OTHER, SELFPAY | PROVIDERS: PCP Internal Medicine; Visit Provider Obstetrics & Gynecology | DX: N93.9 Abnormal uterine and vaginal bleeding, unspecified (principal); D25.9 Leiomyoma of uterus, unspecified; Z79.899 Other long term (current) drug therapy; Z98.890 Other specified postprocedural states | CPT/HCPCS: 99212 ==

== ENCOUNTER → 2021-10-05 15:32 | Outpatient (BNVA) | payer OTHER, SELFPAY | PROVIDERS: PCP Internal Medicine; Visit Provider Surgery | DX: Z71.2 Person consulting for explanation of examination or test findings (principal); Z80.3 Family history of malignant neoplasm of breast | CPT/HCPCS: 99212 ==

== ENCOUNTER 2021-10-19 15:08 | Outpatient (REF) | payer OTHER, SELFPAY ==
[2021-10-19 16:09] LABS: Hemoglobin 8.2 g/dl (12.0-16.0); Imm Gran Abs Auto 0.03 X10*3/uL (0.00-0.03); Imm Gran Pct Auto 0.3 % (0.0-0.4); MANUAL DIFF FLAG SCAN; SCAN SMEAR FLAG 1
[2021-10-19 16:11] LABS: Basophils Absolute Auto 0.1 X10*3/uL (0.0-0.2); Basophils Percent Auto 0.6 % (0-2); Eosinophils Absolute Auto 0.4 X10*3/uL (0.0-0.4); Eosinophils Percent Auto 3.6 % (0-4); Lymphocytes Percent Auto 30.1 % (20-40); Mean Corpuscular HGB Conc 27.3 g/dl (31.0-35.0); Mean Corpuscular Hemoglobin 17.3 pg (27.0-33.0); Monocytes Absolute Auto 0.9 X10*3/uL (0.1-1.2); Monocytes Percent Auto 9.2 % (2-11); Neutrophils Absolute Auto 5.6 x10*3/uL (2.0-8.3); Neutrophils Percent Auto 56.2 % (45-73); Platelet Count 463 X10*3/uL (160-400); Red Blood Count 4.74 X10*6/uL (4.20-5.50); Red Cell Distribution Width 20.1 % (11.0-16.0)
[2021-10-19 16:12] LABS: Mean Corpuscular Volume 63.3 fL (80.0-98.0); PLT ABN DIST 1
[2021-10-19 16:37] LABS: SLIDE REVIEW VERIFIED
[2021-10-19 16:57] LABS: Thyroid Stimulating Hormone 2.75 uIU/mL (0.32-4.0)
[2021-10-19 17:29] LABS: Vitamin B12 182 pg/mL (200-900)
== END 2021-10-19 15:09 | disposition home or self-care (01) ==
LOC: HO.LAB 15:08
PROVIDERS: Absent Provider Internal Medicine; PCP Internal Medicine; Visit Provider Obstetrics & Gynecology
DX: N93.9 Abnormal uterine and vaginal bleeding, unspecified (principal); E55.9 Vitamin D deficiency, unspecified; E53.8 Deficiency of other specified B group vitamins; R79.89 Other specified abnormal findings of blood chemistry; D64.9 Anemia, unspecified
CPT/HCPCS: 36415; 82306; 82607; 82746; 84443; 85025; 99212

== ENCOUNTER 2022-02-04 09:16 | Outpatient (REF) | payer OTHER, SELFPAY ==
[2022-02-04 10:14] LABS: Basophils Absolute Auto 0.1 X10*3/uL (0.0-0.2); Eosinophils Absolute Auto 0.4 X10*3/uL (0.0-0.4); Eosinophils Percent Auto 4.8 % (0-4); Hemoglobin 8.4 g/dl (12.0-16.0); Imm Gran Abs Auto 0.05 X10*3/uL (0.00-0.03); Imm Gran Pct Auto 0.6 % (0.0-0.4); Lymphocytes Absolute Auto 2.8 X10*3/uL (1.2-4.9); Lymphocytes Percent Auto 33.8 % (20-40); MANUAL DIFF FLAG SCAN; Mean Corpuscular Hemoglobin 17.5 pg (27.0-33.0); Mean Corpuscular Volume 62.5 fL (80.0-98.0); Mean Platelet Volume 10.8 fL (9.4-12.3); Monocytes Absolute Auto 0.8 X10*3/uL (0.1-1.2); Monocytes Percent Auto 9.8 % (2-11); Neutrophils Absolute Auto 4.1 x10*3/uL (2.0-8.3); PLT CLUMP 1; Platelet Count 395 X10*3/uL (160-400); Red Cell Distribution Width 20.8 % (11.0-16.0); SCAN SMEAR FLAG 1; White Blood Count 8.3 X10*3/uL (4.8-10.8)
[2022-02-04 10:23] LABS: Iron 19 mcg/dL (30-160); Percent Iron Saturation 4 % (15-50); Total Iron Binding Capacity 534 mcg/dL (228-428); Unsaturated Iron Binding 515 ug/dL
[2022-02-04 10:48] LABS: Free T4 (Free Thyroxine) 1.07 ng/dL (0.71-1.85); Thyroid Stimulating Hormone 3.31 uIU/mL (0.32-4.0); Vitamin D 25-OH Total 16.7 ng/mL (>30)
[2022-02-04 10:51] LABS: SLIDE REVIEW VERIFIED
[2022-02-04 10:52] LABS: Folate 12.2 ng/mL (> or = 4.0); Vitamin B12 177 pg/mL (200-900)
[2022-02-06 15:41] LABS: Prolactin 14.7 ng/mL
== END 2022-02-04 09:17 | disposition home or self-care (01) ==
LOC: HO.LAB 09:16
PROVIDERS: PCP Internal Medicine; Visit Provider Internal Medicine
DX: E06.3 Autoimmune thyroiditis (principal); E53.8 Deficiency of other specified B group vitamins; D64.9 Anemia, unspecified; D35.2 Benign neoplasm of pituitary gland; E55.9 Vitamin D deficiency, unspecified
CPT/HCPCS: 36415; 82306; 82607; 82746; 83540; 84146; 84439; 84443; 85025

== ENCOUNTER 2022-02-20 05:28 | Emergency (ER) | payer OTHER, SELFPAY ==
[2022-02-20 06:06] VITALS: BP 107/57; PULSE 75; RESP 16; TEMP 36.7; O2SAT 99; BMI 47.2
== END 2022-02-20 09:15 | disposition left against medical advice (07) ==
PROVIDERS: Emergency Provider Emergency Medicine; PCP Internal Medicine
DX: M54.50 Low back pain, unspecified (principal)
CPT/HCPCS: 99281

== ENCOUNTER → 2022-03-01 15:07 | Outpatient (BNVA) | payer OTHER, SELFPAY | PROVIDERS: PCP Internal Medicine; Visit Provider Surgery | DX: Z91.89 Other specified personal risk factors, not elsewhere classified (principal); Z80.3 Family history of malignant neoplasm of breast | CPT/HCPCS: 99212 ==

== ENCOUNTER 2022-05-05 10:35 | Outpatient (REF) | payer OTHER, SELFPAY ==
--- NOTE | ~2022-05-05 | US_ITS ---
EXAMINATION: US PELVIS CLINICAL INFORMATION: Leiomyoma of uterus; the last menstrual period was on 04/17/2022. COMPARISON: Pelvic ultrasound dated 06/30/2021. TECHNIQUE: Ultrasound of the pelvis is performed using both transabdominal and transvaginal transducers along with Doppler. Transvaginal imaging is performed due to inadequate visualization transabdominally. FINDINGS: Uterus: The uterus is anteverted and measures 8.6 x 4.5 x 4.7 cm. The uterus is anteverted and anteflexed. The double wall endometrial thickness is 0.6 mm. There are cystic foci at the endometrial-myometrial interface. The uterus is smooth in contour and has normal myometrial echogenicity. Within the posterior leftward upper body, a 1.5 x 1.4 x 1.3 cm heterogeneous echotexture myometrial fibroid is seen. Ultrasound dimensions on 06/30/2017 were 1.7 x 1.8 x 2.0 cm. Adnexa: Both ovaries are visualized. There is normal color flow to the adnexa. There is no ovarian torsion. There is no pelvic ascites or fluid collection. A 2.1 x 0.8 x 1.1 cm right simple paraovarian cyst is seen. Right ovary measures 2.0 x 2.1 x 1.2 cm, volume 2.6 mL. Left ovary measures 2.7 x 1.3 x 1.6 cm, volume 2.9 mL. US/US pelvic and transvaginal IMPRESSION: 1. A small uterine fibroid is seen, as detailed. 2. There are cystic foci adjacent to the endometrium, possibly a sequela of prior ablation procedure or adenomyosis. 3. A 2.1 cm in maximal diameter right paraovarian cyst is seen.
== END 2022-05-05 10:36 | disposition home or self-care (01) ==
LOC: HO.US 10:35
PROVIDERS: PCP Internal Medicine; Visit Provider Obstetrics & Gynecology
DX: D25.9 Leiomyoma of uterus, unspecified (principal)
CPT/HCPCS: 76830; 76856

== ENCOUNTER 2022-06-16 14:51 | Outpatient (REF) | payer OTHER, SELFPAY ==
[2022-06-21 05:23] LABS: HPV mRNA E6/E7 rflx Not Detected (Not Detected)
== END 2022-06-16 14:52 | disposition home or self-care (01) ==
LOC: HO.LNP 14:51
PROVIDERS: PCP Internal Medicine; Visit Provider Obstetrics & Gynecology
DX: Z01.419 Encounter for gynecological examination (general) (routine) without abnormal findings (principal); D25.9 Leiomyoma of uterus, unspecified; Z80.3 Family history of malignant neoplasm of breast
CPT/HCPCS: 87624; 88142

== ENCOUNTER 2022-06-30 15:35 | Outpatient (REF) | payer OTHER, SELFPAY ==
--- NOTE | ~2022-06-30 | MM_ITS ---
EXAMINATION: MM SCREENING DIGITAL BREAST TOMOSYNTHESIS, BILATERAL CLINICAL INFORMATION: Screening. Asymptomatic. The lifetime risk of breast cancer based on the Tyrer-Cuzick Model is 22.8%. Additional annual screening with breast MRI may be of benefit in women with a score of 20% or greater. COMPARISON: Mammography: May 24, 2021 and studies dating back to December 14, 2016 TECHNIQUE: Digital breast tomosynthesis is performed in both the craniocaudal and mediolateral oblique views along with computer-aided detection (CAD). Synthesized 2D images are generated from the tomosynthesis. FINDINGS: There are scattered areas of fibroglandular density (ACR BI-RADS breast composition Category b). There are no new significant masses, abnormal calcifications, or other abnormalities. MM/MM tomosynthesis screening BI IMPRESSION: No significant changes from prior exam. ASSESSMENT: BI-RADS 1: Negative RECOMMENDATION: Routine annual mammography screening. This patient's information was entered into a reminder system with a target due date for their next mammogram.
== END 2022-06-30 15:36 | disposition home or self-care (01) ==
LOC: HO.MAMMO 15:35
PROVIDERS: PCP Internal Medicine; Referring Provider Obstetrics & Gynecology; Visit Provider Internal Medicine
DX: Z12.31 Encounter for screening mammogram for malignant neoplasm of breast (principal)
CPT/HCPCS: 77063; 77067

== ENCOUNTER 2022-08-04 16:38 | Outpatient (REF) | payer OTHER, SELFPAY ==
--- NOTE | ~2022-08-04 | MR_ITS ---
EXAMINATION: MR BREAST WITHOUT AND WITH CONTRAST, BILATERAL CLINICAL INFORMATION: High-risk screening history lifetime risk greater than 22% COMPARISON: MRI 07/01/2021 TECHNIQUE: Imaging was performed with a dedicated breast coil. Prior to the administration of contrast, bilateral axial T1 and bilateral axial T2 weighted sequences were obtained. After the uneventful administration of?10 mL of Gadavist, dynamic contrast-enhanced VIBRANT series through the breasts in the axial plane were performed. Subtracted images were performed and reviewed. A delayed sagittal sequence through both breasts was acquired. Additionally, CAD post-processing, including maximum intensity projections, 3-D reconstructions and kinetic analysis, were performed an independent workstation and reviewed by the interpreting radiologist is a portion of this exam. FINDINGS: The patient's fibroglandular tissue demonstrates minimal background enhancement. LEFT BREAST: No suspicious masslike or non-masslike enhancement. No abnormal skin thickening or nipple retraction. No abnormal architectural distortion. Review of the T2 weighted images demonstrates no fibrocystic changes or dilated ducts. Review of kinetic images reveals no additional findings. RIGHT BREAST: No suspicious masslike or non-masslike enhancement. No abnormal skin thickening or nipple retraction. No abnormal architectural distortion. Review of the T2 weighted images demonstrates no fibrocystic changes or dilated ducts. Review of kinetic images reveals no additional findings. There is no suspicious internal mammary chain or axillary adenopathy. Limited views of the chest and abdomen are unremarkable. MR/MR breast BI wo/w con IMPRESSION: No MR specific evidence of malignancy. ASSESSMENT: LEFT BREAST: BI-RADS 1-Negative RIGHT BREAST: BI-RADS 1-Negative RECOMMENDATIONS: Routine mammographic imaging as per most recent study and MRI as per high-risk protocol
== END 2022-08-04 16:39 | disposition home or self-care (01) ==
LOC: HO.MRI 16:38
PROVIDERS: PCP Internal Medicine; Visit Provider Obstetrics & Gynecology
DX: Z12.39 Encounter for other screening for malignant neoplasm of breast (principal); Z80.3 Family history of malignant neoplasm of breast
CPT/HCPCS: 77049; A9585

== ENCOUNTER → 2022-09-08 14:56 | Outpatient (BNVA) | payer OTHER, SELFPAY | PROVIDERS: PCP Internal Medicine; Visit Provider Obstetrics & Gynecology | DX: Z91.89 Other specified personal risk factors, not elsewhere classified (principal); Z80.3 Family history of malignant neoplasm of breast | CPT/HCPCS: 99212 ==

== ENCOUNTER 2022-10-29 07:34 | Emergency (ER) | payer OTHER, SELFPAY ==
--- NOTE | ~2022-10-29 | US_ITS ---
EXAMINATION: US PELVIS CLINICAL INFORMATION: Lower pelvic pain. COMPARISON: Most recent pelvic ultrasound dated 06/30/2021. TECHNIQUE: Ultrasound of the pelvis is performed using both transabdominal and transvaginal transducers along with Doppler. Transvaginal imaging is performed due to inadequate visualization transabdominally. FINDINGS: Uterus: The uterus is anteverted and measures 10.1 x 6.4 x 7.7 cm. The double wall endometrial thickness is 4 mm. Complex fluid within the endometrial cavity measuring up to 3.8 cm in AP dimension, new when compared to the prior examination. The uterus is smooth in contour and has normal myometrial echogenicity. Right uterine body fibroid measuring up to 2.9 x 2.6 x 2.6 cm. This appears different than the previously seen uterine fibroid which measured up to 1.5 cm. Reported interval endometrial ablation in August 2021. Adnexa: Both ovaries are visualized. There is normal color flow to the adnexa. There is no ovarian torsion. There is no pelvic ascites or fluid collection. Left ovarian dominant follicles measuring up to 1.9 and 1.5 cm. Right ovary measures 2.5 x 1.9 x 1.4 cm. Ovarian volume of 3.5 mL. Left ovary measures 2.3 x 1.4 x 3.2 cm. Ovarian volume of 5.4 mL. US/US pelvic and transvaginal IMPRESSION: 1. Complex fluid within the endometrial cavity, new when compared to the prior examination. Findings are nonspecific and could represent complex fluid versus blood products related to prior ablation. 2. Right uterine body fibroid measuring up to 2.9 cm. This appears different than the previously seen uterine fibroid which measured up to 1.5 cm. 3. Left ovarian dominant follicles measuring up to 1.5 cm.
--- NOTE | ~2022-10-29 | CT_ITS ---
EXAMINATION: CT ABDOMEN AND PELVIS WITH CONTRAST CLINICAL INFORMATION: Lower abdominal pain COMPARISON: Ultrasound pelvis and transvaginal vaginal 10/29/2022. TECHNIQUE: Multidetector volumetric images were obtained from the superior aspect of the liver through the pubic symphysis following administration 85 mL of Omnipaque 350 intravenous contrast. Sagittal and coronal reformatted images were obtained on the technologist's workstation. Oral contrast: No This CT examination was performed using dose optimization techniques as appropriate, variously including the following: *Automated exposure control *Adjustment of mA and/or kV according to patient size (this includes techniques or standardized protocols for targeted exams where dose is matched to indication/reason for exam; i.e. extremities or head) *Use of iterative reconstruction technique DLP: 1063 mGy-cm FINDINGS: LUNG BASES: The visualized lung bases are unremarkable. LIVER, GALLBLADDER, AND BILIARY TREE: The liver is normal in size, shape, and attenuation. No focal hepatic lesion or biliary ductal dilatation is present. The gallbladder has been surgically removed. PANCREAS: Unremarkable. SPLEEN: Unremarkable. ADRENAL GLANDS: Unremarkable. KIDNEYS AND URETERS: The kidneys are normal in size, shape, and attenuation. No hydronephrosis, hydroureter, or calculi seen. No perinephric stranding. BLADDER: Unremarkable. GASTROINTESTINAL TRACT: There is scattered stool and gas seen in the colon without significant distention. The small bowel loops are normal caliber. Appendix is not visualized. There is no inflammatory process, free air or free fluid. ABDOMINAL WALL: No significant hernia is appreciated. LYMPH NODES: Normal. VASCULAR: Unremarkable. PELVIC VISCERA: The uterus is anteverted with the largest cyst within the endometrial canal measuring 4.2 x 2.0 and 3.3). It measures fluid density. There is a second smaller cyst measuring 1.5 x 1.0 cm in the right fundal endometrium. There are small hypodensity in the left ovary likely cysts. The largest measuring 1.9 cm. OSSEOUS STRUCTURES: No aggressive lytic or sclerotic process seen. CT/CT abdomen pelvis w IV con IMPRESSION: No acute intra-abdominal process seen. A lobulated moderate-sized cystic lesion in fundal endometrial canal and a smaller one in the right fundal endometrial canal. Correlate if patient is . Differential diagnoses include degenerative fibroid, endometrial cysts or atypical gestational sac. This representing endometrial/uterine abscess is a less likely. Similar findings were seen on ultrasound pelvis 10/29/2022. Small cyst left ovary Fleischner guidelines were followed.
[2022-10-29 07:38] VITALS: BP 124/64; PULSE 62; RESP 18; TEMP 36.4; O2SAT 98; BMI 46.6
[2022-10-29 08:02] LABS: MANUAL DIFF FLAG NO
[2022-10-29 08:07] LABS: Basophils Absolute Auto 0.1 X10*3/uL (0.0-0.2); Basophils Percent Auto 0.7 % (0-2); Eosinophils Absolute Auto 0.4 X10*3/uL (0.0-0.4); Eosinophils Percent Auto 4.4 % (0-4); Hematocrit 31.4 % (37.0-47.0); Hemoglobin 8.9 g/dl (12.0-16.0); Imm Gran Abs Auto 0.04 X10*3/uL (0.00-0.03); Imm Gran Pct Auto 0.4 % (0.0-0.4); Lymphocytes Absolute Auto 2.8 X10*3/uL (1.2-4.9); Lymphocytes Percent Auto 28.1 % (20-40); Mean Corpuscular HGB Conc 28.3 g/dl (31.0-35.0); Mean Corpuscular Hemoglobin 18.6 pg (27.0-33.0); Mean Corpuscular Volume 65.6 fL (80.0-98.0); Mean Platelet Volume 9.9 fL (9.4-12.3); Monocytes Absolute Auto 1.1 X10*3/uL (0.1-1.2); Monocytes Percent Auto 10.6 % (2-11); Neutrophils Absolute Auto 5.6 x10*3/uL (2.0-8.3); Neutrophils Percent Auto 55.8 % (45-73); Platelet Count 406 X10*3/uL (160-400); Red Blood Count 4.79 X10*6/uL (4.20-5.50); Red Cell Distribution Width 19.9 % (11.0-16.0)
[2022-10-29 08:21] LABS: Alanine Aminotransferase 11 U/L (0-31); Albumin Level 3.6 g/dL (3.5-5.0); Alkaline Phosphatase 78 U/L (39-117); Anion Gap 13 (12-20); Aspartate Amino Transferase 13 U/L (5-31); Bilirubin Total 0.8 mg/dL (0.0-1.0); Blood Urea Nitrogen 9 mg/dL (9-16); Calcium 8.7 mg/dL (8.4-10.2); Carbon Dioxide 20 mmol/L (22-29); Chloride 110 mmol/L (96-108); Creatinine Clr Calc Pharmacy 143.9; Estimated Glomerular Filt Rate > 60; Glucose Random 91 mg/dL (60-115); Potassium 3.8 mmol/L (3.3-5.1); Sodium 139 mmol/L (135-145); Total Protein 6.8 g/dL (6.5-8.0)
--- NOTE | 2022-10-29 08:43 | ED_ITS ---
HPI - Abdominal Pain General Chief Complaint: Abdominal Pain Stated Complaint: abd pain Time Seen by Provider: 10/29/22 07:51 Source: patient Mode of arrival: ambulatory History of Present Illness HPI narrative: 42-year-old female who presents with intermittent lower pelvic pain that is been off and on for the past 3 months and she describes as sharp and constant when it arrives and is associated with dysuria, she does have a significant history for HSV but states that it was much different than this episode, she denies any vaginal discharge and denies any further menstrual bleeding. She denies any associated fever, chills but has had some nausea without vomiting and denies any history of renal colic. Related Data Home Medications Medication Instructions Recorded Confirmed cyanocobalamin (vitamin B-12) 1,000 mcg PO DAILY 07/03/20 06/08/22 1,000 mcg tablet Previous Rx's Medication Instructions Recorded folic acid 1 mg tablet 1 mg PO DAILY 90 days #90 tabs 05/13/20 sennosides 8.6 mg capsule (senna) 8.6 mg PO BEDTIME PRN constipation 09/02/20 90 days #90 caps ferrous sulfate 325 mg (65 mg 325 mg PO TID 30 days #90 tabs 12/14/20 iron) tablet cholecalciferol (vitamin D3) 50 50 mcg PO DAILY 90 days #90 caps 07/01/21 mcg (2,000 unit) capsule ketorolac 10 mg tablet 10 mg PO Q6H PRN pain 5 days #20 10/29/22 tabs Allergies Allergy/AdvReac Type Severity Reaction Status Date / Time No Known Allergies Allergy Verified 10/29/22 07:37 [No Known Allergies*] Review of Systems Review of Systems Pertinent positives and negatives as stated in HPI PMFSH Past Medical History Source: nursing notes reviewed Medical History Abnormal thyroid blood test Anemia Anxiety ASCUS with positive high risk HPV cervical B12 deficiency Cervical low risk human papillomavirus (HPV) DNA test positive Constipation by delayed colonic transit Depression Michael's disease Headache Iron deficiency anemia Lumbar radiculopathy Moderate recurrent major depression Morbid obesity with BMI of 40.0-44.9, adult Morbid obesity with BMI of 45.0-49.9, adult Morbid obesity with BMI of 50.0-59.9, adult Panic attacks Physical exam Pituitary microadenoma Surgical History History of appendectomy History of endometrial ablation History of laparoscopic cholecystectomy History of lumpectomy of right breast History of Lulu-en-Y gastric bypass History of sleeve gastrectomy History of tubal ligation History of tympanostomy tube placement Family History Family History Father Hypertension Mother Hypertension Maternal Grandmother Leukemia Paternal Grandmother Myocardial infarction Hypertension Maternal Aunt History of breast cancer Maternal Aunt History of breast cancer Maternal Aunt History of breast cancer Paternal Aunt History of breast cancer Paternal Aunt History of breast cancer Social History Social History Household Members: Family Housing: Apartment Are you a primary acute care assistant to a significant other at home: No Do you presently have visiting nurse or other home services: No Alcohol intake: current Alcohol intake frequency: holidays/special occasions only Patient Tobacco Use Status: Never used Tobacco Smoked in Last 30 Days: No e-Cigarette/Vaping Use: Never Used Second Hand Smoke Exposure: No Use of substances other than those prescribed or required for medical reasons: No Advance Directives: No Patient : No service: No Current occupational status: unemployed Sexual orientation: Straight/Heterosexual Gender identity: Female Cognitive needs: No Hearing needs: No Vision needs: Yes Physical Exam ED Vital Signs: Vital Signs - 24 hr 10/29/22 07:38 10/29/22 11:52 10/29/22 12:57 Temperature 97.6 F 987.1 F H Pulse Rate 62 54 53 Respiratory Rate 18 16 16 Blood Pressure 124/64 112/64 133/59 L Pulse Oximetry 98 99 99 Oxygen Delivery Method Room Air Room Air Room Air BMI result Body Mass Index 46.6 VITAL SIGNS: Reviewed. GENERAL: Well developed, well nourished, in no acute distress. HEAD: Normocephalic/atraumatic EYES: PERRLA, EOMI EARS: Ext canals without abnormality NOSE: Nares patent bilateral OROPHARYNX: no oral lesions noted, posterior pharynx clear NECK: Supple, no adenopathy LUNGS: Normal breath sounds. No adventitious sounds or accessory muscle use. SpO2<98> CARDIOVASCULAR: Regular rate and rhythm without noted murmurs ABDOMEN: Soft, mid lower abdominal pelvic pain/suprapubic discomfort, non- distended with bowel sounds. MUSCULOSKELETAL: No tenderness, deformities, or effusions noted on gross inspection. EXTREMITIES: No cyanosis, clubbing or edema. SKIN: Inspection of the skin reveals no rashes NEUROLOGIC: Alert and oriented x 4. Strength and sensation to light touch were grossly intact x 4. Medical Decision Making Medical Decision Making [facility] Narrative: 42-year-old female with history and clinical presentation, DDX: Cystitis, renal colic, possible herpes genitalis, ectopic, less likely diverticulitis/appendicitis as there is no fever/chills. Reviewed all investigations, hematologic indices are chronically stable with a microcytic anemia, no leukocytosis or left shift. Chemistry indices are grossly within normal limits. Urine is negative (no ectopic) and urinalysis is negative for hematuria or infection. There is no evidence of renal colic on CT abdomen/pelvis and ultrasound as well as a CT scan identify uterine fibroids and otherwise my interpretation is in agreement with radiology's impression.My overall interpretation at this time is that patient may be experiencing pain associated with uterine fibroids and/or interstitial cystitis. Patient given all results, on re-evaluation or pain as improved combination analgesics and she was strongly encouraged to follow-up with gynecology. She is otherwise stable for discharge. Differential Diagnosis Differential Diagnoses: The differential diagnosis associated with the presentation includes Please see the discussion above Admission/Observation Consideration of admission/observation: Escalation of care including admission/observation considered Lab Data MDM Lab Attestation statement: I reviewed the patient's lab results. Please see the discussion above 10/29/22 07:59 10/29/22 07:59 Labs: Lab Results 10/29/22 10/29/22 10/29/22 Range/Units 07:59 07:59 09:28 WBC 10.0 (4.8-10.8) X10*3/uL RBC 4.79 (4.20-5.50) X10*6/uL Hgb 8.9 L (12.0-16.0) g/dl Hct 31.4 L (37.0-47.0) % MCV 65.6 L (80.0-98.0) fL MCH 18.6 L (27.0-33.0) pg MCHC 28.3 L (31.0-35.0) g/dl RDW 19.9 H (11.0-16.0) % Plt Count 406 H (160-400) X10*3/uL MPV 9.9 (9.4-12.3) fL Immature Gran % (Auto) 0.4 (0.0-0.4) % Neut % (Auto) 55.8 (45-73) % Lymph % (Auto) 28.1 (20-40) % [place] % (Auto) 10.6 (2-11) % Eos % (Auto) 4.4 H (0-4) % Baso % (Auto) 0.7 (0-2) % Lymph # (Auto) 2.8 (1.2-4.9) X10*3/uL [place] # (Auto) 1.1 (0.1-1.2) X10*3/uL Eos # (Auto) 0.4 (0.0-0.4) X10*3/uL Baso # (Auto) 0.1 (0.0-0.2) X10*3/uL Abs Immat Gran (auto) 0.04 H (0.00-0.03) X10*3/uL Absolute Neuts (auto) 5.6 (2.0-8.3) x10*3/uL Absolute Nucleated RBC 0.000 (0.0-0.012) X10*3/uL Nucleated RBC % (auto) 0.0 (0.0-0.2) /100WBC Sodium 139 (135-145) mmol/L Potassium 3.8 (3.3-5.1) mmol/L Chloride 110 H (96-108) mmol/L Carbon Dioxide 20 L (22-29) mmol/L Anion Gap 13 (12-20) BUN 9 (9-16) mg/dL Creatinine 0.65 (0.5-1.4) mg/dL Estim Creat Clear Calc 143.9 Estimated GFR > 60 Random Glucose 91 (60-115) mg/dL Calcium 8.7 (8.4-10.2) mg/dL Total Bilirubin 0.8 (0.0-1.0) mg/dL AST 13 (5-31) U/L ALT 11 (0-31) U/L Alkaline Phosphatase 78 (39-117) U/L Total Protein 6.8 (6.5-8.0) g/dL Albumin 3.6 (3.5-5.0) g/dL Urine Color Yellow Urine Appearance Clear Urine pH 5.5 (5.0-9.0) Ur Specific [place] 1.020 (1.005-1.025) Urine Protein Negative (Neg-Trace) mg/dL Urine Glucose (UA) Negative (Negative) mg/dL Urine Ketones Negative (Negative) mg/dL Urine Blood Negative (Negative) Urine Nitrite Negative (Negative) Ur Leukocyte Esterase Negative (Negative) Urine Test (NEGATIVE) 10/29/22 Range/Units 09:31 WBC (4.8-10.8) X10*3/uL RBC (4.20-5.50) X10*6/uL Hgb (12.0-16.0) g/dl Hct (37.0-47.0) % MCV (80.0-98.0) fL MCH (27.0-33.0) pg MCHC (31.0-35.0) g/dl RDW (11.0-16.0) % Plt Count (160-400) X10*3/uL MPV (9.4-12.3) fL Immature Gran % (Auto) (0.0-0.4) % Neut % (Auto) (45-73) % Lymph % (Auto) (20-40) % [place] % (Auto) (2-11) % Eos % (Auto) (0-4) % Baso % (Auto) (0-2) % Lymph # (Auto) (1.2-4.9) X10*3/uL [place] # (Auto) (0.1-1.2) X10*3/uL Eos # (Auto) (0.0-0.4) X10*3/uL Baso # (Auto) (0.0-0.2) X10*3/uL Abs Immat Gran (auto) (0.00-0.03) X10*3/uL Absolute Neuts (auto) (2.0-8.3) x10*3/uL Absolute Nucleated RBC (0.0-0.012) X10*3/uL Nucleated RBC % (auto) (0.0-0.2) /100WBC Sodium (135-145) mmol/L Potassium (3.3-5.1) mmol/L Chloride (96-108) mmol/L Carbon Dioxide (22-29) mmol/L Anion Gap (12-20) BUN (9-16) mg/dL Creatinine (0.5-1.4) mg/dL Estim Creat Clear Calc Estimated GFR Random Glucose (60-115) mg/dL Calcium (8.4-10.2) mg/dL Total Bilirubin (0.0-1.0) mg/dL AST (5-31) U/L ALT (0-31) U/L Alkaline Phosphatase (39-117) U/L Total Protein (6.5-8.0) g/dL Albumin (3.5-5.0) g/dL Urine Color Urine Appearance Urine pH (5.0-9.0) Ur Specific [place] (1.005-1.025) Urine Protein (Neg-Trace) mg/dL Urine Glucose (UA) (Negative) mg/dL Urine Ketones (Negative) mg/dL Urine Blood (Negative) Urine Nitrite (Negative) Ur Leukocyte Esterase (Negative) Urine Test NEGATIVE (NEGATIVE) Radiology Impression Radiologist Impression: No renal colic, otherwise my interpretation is in agreement with radiology's impression. External Record Review External record reviewed: Outpatient record and Prior outpatient labs Medications Administered Discontinued Medications Generic Name Dose Route Start Last Admin Trade Name Chance PRN Reason Stop Dose Admin Acetaminophen 975 mg 10/29/22 08:43 10/29/22 09:34 Acetaminophen 325 Mg Tablet PO 10/29/22 08:44 975 mg ONCE ONE Administration Iohexol 100 ml 10/29/22 12:40 10/29/22 12:41 Iohexol 350 Mg/Ml 100 Ml Infus..Btl IV 10/29/22 12:41 85 ml ONCE ONE Administration Ketorolac Tromethamine 15 mg 10/29/22 08:43 10/29/22 09:34 Ketorolac Tromethamine 15 Mg/Ml Vial IM 10/29/22 08:44 15 mg ONCE ONE Administration Discharge Plan Discharge Clinical Impression: Uterine fibroid, Abdominal discomfort Patient Disposition: Home, Self-Care Instructions: Abdominal Pain (ED) Additional Instructions: 1. Tylenol 1000 mg, orally, every 6 hours as needed for pain control. Do not exceed 4000 mg within 24 hours. 2. I have sent a prescription for Toradol (ketorolac) to your pharmacy and that should be taken with Tylenol to improved symptom relief. 3. A strongly recommend follow-up with your pharmacy operations manager for further discussion regarding your uterine fibroids which are likely causing majority of your discomfort. 4. Please follow-up with your primary care provider on Monday morning. Return to the ER for any worsening symptoms. Prescriptions: New ketorolac 10 mg tablet 10 mg PO Q6H PRN (Reason: pain) 5 Days Qty: 20 0RF Rx Instructions: Patient received Toradol in the emergency room. No Action folic acid 1 mg tablet 1 mg PO DAILY 90 Days Qty: 90 3RF ferrous sulfate 325 mg (65 mg iron) tablet 325 mg PO TID 30 Days Qty: 90 6RF cholecalciferol (vitamin D3) 50 mcg (2,000 unit) capsule 50 mcg PO DAILY 90 Days Qty: 90 3RF senna 8.6 mg capsule 8.6 mg PO BEDTIME PRN (Reason: constipation) 90 Days Qty: 90 1RF cyanocobalamin (vitamin B-12) 1,000 mcg tablet 1,000 mcg PO DAILY Referrals: Ila Brown MD [Primary Care Provider] -
[2022-10-29] MEDS: Acetaminophen 325 MG TABLET 975 MG PO (09:34)
[2022-10-29] MEDS: Ketorolac Tromethamine 15 MG/ML VIAL IM (09:34)
[2022-10-29 09:36] LABS: Appearance Urine Clear; Color Urine Yellow; Glucose Urine UA Negative (Negative); Leukocyte Esterase Urine Negative (Negative); Nitrite Urine Negative (Negative); PH 5.5 (5.0-9.0); Urine Blood Negative (Negative); Urine Ketones Negative (Negative); Urine Protein Negative (Neg-Trace)
--- NOTE | 2022-10-29 10:05 | PC.NURSE ---
labs drawn and sent, ultrasound done, meds given as ordered.
[2022-10-29 10:30] LABS: UPreg QC Valid YES; Urine Pregnancy NEGATIVE (NEGATIVE)
[2022-10-29 11:52] VITALS: BP 112/64; PULSE 54; RESP 16; TEMP 530.6; TEMP 987.1; O2SAT 99
[2022-10-29] MEDS: iohexoL 350 MG/ML 100 ML INFUS..BTL IV (12:41)
[2022-10-29 12:57] VITALS: BP 133/59; PULSE 53; RESP 16; O2SAT 99
--- NOTE | 2022-10-29 12:59 | PC.NURSE ---
Pt is alert/oriented, azeri speaking. States LLQ abd pain x months, worsening today. Denies n/v/d. Skin pwd. No facial grimace or guarding noted. Abd non distended, +BS x 4 quads. Tender to LLQ. Awaits Ct scan results.
== END 2022-10-29 13:35 | disposition home or self-care (01) ==
PROVIDERS: Emergency Provider Student in an Organized Health Care Education/Training Program; PCP Internal Medicine
DX: D25.9 Leiomyoma of uterus, unspecified (principal); R10.2 Pelvic and perineal pain; E66.9 Obesity, unspecified; Z68.42 Body mass index [BMI] 45.0-49.9, adult
CPT/HCPCS: 36415; 74177; 76830; 76856; 80053; 81003; 81025; 85025; 96372; 99284; J1885; Q9967

== ENCOUNTER 2022-11-01 12:37 | Outpatient (REF) | payer OTHER, SELFPAY ==
[2022-11-02 09:19] LABS: CT PCR NOT DETECTED (Not Detect.); NG PCR NOT DETECTED (Not Detect.)
== END 2022-11-01 12:38 | disposition home or self-care (01) ==
LOC: HO.LNP 12:37
PROVIDERS: PCP Internal Medicine; Visit Provider Obstetrics & Gynecology
DX: R10.2 Pelvic and perineal pain (principal); Z20.2 Contact with and (suspected) exposure to infections with a predominantly sexual mode of transmission
CPT/HCPCS: 0353U; 81025; 96372; 99212; J0696

== ENCOUNTER 2022-11-01 12:37 | Outpatient (AMB) | payer OTHER, SELFPAY ==
--- NOTE | 2022-11-01 12:39 | MHC.OFFVIS ---
Intake Vital Signs 11/01/22 12:42 Height 5 ft 2.5 in Weight 275 lb BMI 49.5 BP 122/82 Blood Pressure Location Lt brachial Position Sitting Intake Visit Reasons: Fibroids Behavior Support Specialist Required: Yes Behavior Support Specialist Language: Jack Tamp Operator Name: Marysol WILSON Allergies No Known Allergies [No Known Allergies*] Allergy (Verified 11/01/22 12:42) HPI HPI Comments History of Present Illness Details The patient is presenting as a follow-up from emergency room visit few days ago when she went to the emergency room with pelvic discomfort of few months duration with no associated vaginal discharge and the patient has been amenorrheic since her endometrial ablation. The following workup was done CBC: Normal WBC, H&H 8.9/31.4 UA was negative Urine test was negative pelvic ultrasound showed the following Uterus: The uterus is anteverted and measures 10.1 x 6.4 x 7.7 cm.? The double wall endometrial thickness is 4 mm. Complex fluid within the endometrial cavity measuring up to 3.8 cm in AP dimension, new when compared to the prior examination. The uterus is smooth in contour and has normal myometrial echogenicity. Right uterine body fibroid measuring up to 2.9 x 2.6 x 2.6 cm. This appears different than the previously seen uterine fibroid which measured up to 1.5 cm. Reported interval endometrial ablation in August 2021. Adnexa: Both ovaries are visualized. There is normal color flow to the adnexa. There is no ovarian torsion.? There is no pelvic ascites or fluid collection. Left ovarian dominant follicles measuring up to 1.9 and 1.5 cm. Right ovary measures 2.5 x 1.9 x 1.4 cm. Ovarian volume of 3.5 mL. Left ovary measures 2.3 x 1.4 x 3.2 cm. Ovarian volume of 5.4 mL. Last co testing done in 07/07 was negative, last endometrial biopsy done in 09/05 was negative for endometrial lesion or malignancy and last mammogram was in 07/07 BI-RADS 1 [facility] Medical History Abnormal thyroid blood test Anemia Anxiety ASCUS with positive high risk HPV cervical B12 deficiency Cervical low risk human papillomavirus (HPV) DNA test positive Constipation by delayed colonic transit Depression Michael's disease Headache Iron deficiency anemia Lumbar radiculopathy Moderate recurrent major depression Morbid obesity with BMI of 40.0-44.9, adult Morbid obesity with BMI of 45.0-49.9, adult Morbid obesity with BMI of 50.0-59.9, adult Panic attacks Physical exam Pituitary microadenoma Surgical History History of appendectomy History of endometrial ablation History of laparoscopic cholecystectomy History of lumpectomy of right breast History of Lulu-en-Y gastric bypass History of sleeve gastrectomy History of tubal ligation History of tympanostomy tube placement Family History Father Hypertension Mother Hypertension Maternal Grandmother Leukemia Paternal Grandmother Myocardial infarction Hypertension Maternal Aunt History of breast cancer Maternal Aunt History of breast cancer Maternal Aunt History of breast cancer Paternal Aunt History of breast cancer Paternal Aunt History of breast cancer Social History Household Members: Family Housing: Apartment Are you a primary child care to a significant other at home: No Do you presently have visiting nurse or other home services: No Alcohol intake: current Alcohol intake frequency: holidays/special occasions only Patient Tobacco Use Status: Never used Tobacco e-Cigarette/Vaping Use: Never Used Second Hand Smoke Exposure: No service: No Current occupational status: unemployed Sexual orientation: Straight/Heterosexual Gender identity: Female Cognitive needs: No Hearing needs: No Vision needs: Yes Female Reproductive History Menstrual Age of Menarche: 10 Physical Exam Vital Signs: Last Vital Signs BP 122/82 11/01/22 12:42 BMI result Body Mass Index 49.5 GI Palpation (GI): Soft to palpation, Tenderness to palpation present (GI) and no guarding Auscultation: normal bowel sounds External Female Exam: normal external appearance Speculum Exam - Vagina: normal appearance of the vagina Speculum Exam - Cervix: normal appearance of the cervix Bimanual exam- vagina & uterus: cervical motion tenderness and Uterine tenderness Bimanual Exam- Adnexa, other: tender Assessment & Plan Assessment & Plan (1) Pelvic pain: Comment: 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 Discussed the patient the workup done in the emergency room including normal CBC, abnormal endometrium with fluid/blood collection, myomas that has grown in size abnormal. In addition to pelvic exam positive for cervical motion tenderness, uterine and adnexal tenderness;the differential diagnosis discussed with the patient include PID versus post ablation syndrome. Will treat for possible PID with ceftriaxone 500 mg IM x1 with doxycycline 100 mg p.o. b.i.d. with Flagyl 500 mg p.o. b.i.d. for 14 days, will reassess in 48 hours, if the patient does not improve on antibiotics will recommend hysterectomy for post ablation syndrome. Instructions given the patient to call in case of fever above 100.4, nausea or vomiting, worsening of her pain Orders: Orders AMB Ceftriaxone Injection Today R10.2 - Pelvic and perineal pain Medications: New ceftriaxone 500 mg IM ONCE 1 ea 0RF pid R10.2 - Pelvic and perineal pain metronidazole 500 mg PO BID 28 tabs 0RF 14 days doxycycline hyclate 100 mg PO BID 28 caps 0RF 14 days Coding Level of Care Code Est Pt Level 3 (04293) Diagnoses Pelvic pain R10.2
[2022-11-01 12:42] VITALS: BP 122/82; BMI 49.5
== END 2022-11-01 14:09 | disposition home or self-care (01) ==
LOC: HO.HWS 12:37
PROVIDERS: PCP Internal Medicine; Visit Provider Obstetrics & Gynecology
DX: R10.2 Pelvic and perineal pain (principal); Z32.02 Encounter for pregnancy test, result negative
CPT/HCPCS: 99213

== ENCOUNTER 2022-11-02 01:49 | Emergency (ER) | payer OTHER, SELFPAY ==
[2022-11-02] VITALS (9 sets, daily range): BP systolic 89–134; BP diastolic 41–72; PULSE 60–96; RESP 12–26; TEMP 36.6–36.7; O2SAT 94–99; BMI 45.3
--- NOTE | 2022-11-02 02:25 | MHC.EDTECH ---
Labs and urine obtained in triage area,and sent to lab
[2022-11-02 02:31] LABS: MANUAL DIFF FLAG NO
[2022-11-02 02:33] LABS: Appearance Urine Clear; Color Urine Yellow; Glucose Urine UA Negative (Negative); Leukocyte Esterase Urine Negative (Negative); Nitrite Urine Negative (Negative); Urine Blood Negative (Negative); Urine Ketones Negative (Negative); Urine Protein Negative (Neg-Trace)
[2022-11-02 02:45] LABS: Alanine Aminotransferase 13 U/L (0-31); Albumin Level 3.6 g/dL (3.5-5.0); Alkaline Phosphatase 92 U/L (39-117); Anion Gap 13 (12-20); Aspartate Amino Transferase 16 U/L (5-31); Bilirubin Total 0.7 mg/dL (0.0-1.0); Blood Urea Nitrogen 13 mg/dL (9-16); Calcium 8.8 mg/dL (8.4-10.2); Carbon Dioxide 22 mmol/L (22-29); Chloride 108 mmol/L (96-108); Creatinine Clr Calc Pharmacy 165.6; Estimated Glomerular Filt Rate > 60; Glucose Random 82 mg/dL (60-115); Potassium 4.2 mmol/L (3.3-5.1); Sodium 139 mmol/L (135-145); Total Protein 6.8 g/dL (6.5-8.0)
[2022-11-02 02:54] LABS: Basophils Absolute Auto 0.1 X10*3/uL (0.0-0.2); Basophils Percent Auto 0.4 % (0-2); Eosinophils Absolute Auto 0.4 X10*3/uL (0.0-0.4); Hematocrit 30.7 % (37.0-47.0); Hemoglobin 8.7 g/dl (12.0-16.0); Imm Gran Abs Auto 0.05 X10*3/uL (0.00-0.03); Imm Gran Pct Auto 0.4 % (0.0-0.4); Lymphocytes Absolute Auto 2.5 X10*3/uL (1.2-4.9); Lymphocytes Percent Auto 17.6 % (20-40); Mean Corpuscular HGB Conc 28.3 g/dl (31.0-35.0); Mean Corpuscular Hemoglobin 18.6 pg (27.0-33.0); Mean Corpuscular Volume 65.6 fL (80.0-98.0); Mean Platelet Volume 10.5 fL (9.4-12.3); Monocytes Percent Auto 7.2 % (2-11); Neutrophils Percent Auto 71.4 % (45-73); Platelet Count 363 X10*3/uL (160-400); Red Blood Count 4.68 X10*6/uL (4.20-5.50); Red Cell Distribution Width 19.9 % (11.0-16.0)
--- NOTE | 2022-11-02 03:22 | ED.ABDPAIN ---
HPI - Abdominal Pain General Chief Complaint: Abdominal Pain Stated Complaint: abd pain Time Seen by Provider: 11/02/22 03:21 Source: patient, family and staff interpreter Mode of arrival: ambulatory Limitations: no limitations History of Present Illness HPI narrative: 42-year-old female with 4 months of pelvic pain, patient was evaluated in the emergency department for similar symptoms and was seen by Dr. Wharton in his office yesterday who started her on antibiotic and pain medication patient return for severe pain in the pelvis, pain was placed on ceftriaxone 500 mg IM and doxycycline 100 mg b.i.d. with Flagyl 500 mg for [address] Wharton, who also recommended hysterectomy if the pain as not improving after this antibiotic regimen. Related Data Home Medications Medication Instructions Recorded Confirmed cyanocobalamin (vitamin B-12) 1,000 mcg PO DAILY 07/03/20 06/08/22 1,000 mcg tablet Previous Rx's Medication Instructions Recorded folic acid 1 mg tablet 1 mg PO DAILY 90 days #90 tabs 05/13/20 sennosides 8.6 mg capsule (senna) 8.6 mg PO BEDTIME PRN constipation 09/02/20 90 days #90 caps ferrous sulfate 325 mg (65 mg 325 mg PO TID 30 days #90 tabs 12/14/20 iron) tablet cholecalciferol (vitamin D3) 50 50 mcg PO DAILY 90 days #90 caps 07/01/21 mcg (2,000 unit) capsule ketorolac 10 mg tablet 10 mg PO Q6H PRN pain 5 days #20 10/29/22 tabs doxycycline hyclate 100 mg capsule 100 mg PO BID 14 days #28 caps 11/01/22 metronidazole 500 mg tablet 500 mg PO BID 14 days #28 tabs 11/01/22 oxycodone 5 mg tablet 5 mg PO Q6H PRN pain #10 tabs 11/02/22 Allergies Allergy/AdvReac Type Severity Reaction Status Date / Time No Known Allergies Allergy Verified 11/01/22 12:42 [No Known Allergies*] Review of Systems Review of Systems All other systems are reviewed and are negative Constitutional: Reports as per HPI and Reports no additional constitutional complaints Eyes: Reports as per HPI and Reports no additional eye complaints Reports system reviewed and no additional complaints, except as documented Cardiovascular: Reports as per HPI and Reports no additional cardiovascular complaints Respiratory: Reports as per HPI and Reports no additional respiratory complaints Gastrointestinal: Reports as per HPI and Reports no additional gastrointestinal complaints Genitourinary: Reports no additional female genitourinary complaints Musculoskeletal: Reports no additional musculoskeletal complaints Skin/Breast: Reports system reviewed and no additional complaints, except as docu Psychiatric: Reports no additional psychiatric complaints Endocrine: Reports no additional endocrine complaints Hematologic/Lymphatic: Reports no additional hematologic/lymphatic complaints Allergic/Immunologic: Reports no additional allergic/immunologic complaints Reports system reviewed and no additional complaints, except as documented and Reports Abnormal speech [facility] Past Medical History Medical History Abnormal thyroid blood test Anemia Anxiety ASCUS with positive high risk HPV cervical B12 deficiency Cervical low risk human papillomavirus (HPV) DNA test positive Constipation by delayed colonic transit Depression Michael's disease Headache Iron deficiency anemia Lumbar radiculopathy Moderate recurrent major depression Morbid obesity with BMI of 40.0-44.9, adult Morbid obesity with BMI of 45.0-49.9, adult Morbid obesity with BMI of 50.0-59.9, adult Panic attacks Physical exam Pituitary microadenoma Surgical History History of appendectomy History of endometrial ablation History of laparoscopic cholecystectomy History of lumpectomy of right breast History of Lulu-en-Y gastric bypass History of sleeve gastrectomy History of tubal ligation History of tympanostomy tube placement Family History Family History Father Hypertension Mother Hypertension Maternal Grandmother Leukemia Paternal Grandmother Myocardial infarction Hypertension Maternal Aunt History of breast cancer Maternal Aunt History of breast cancer Maternal Aunt History of breast cancer Paternal Aunt History of breast cancer Paternal Aunt History of breast cancer Social History Social History Household Members: Family Housing: Apartment Are you a primary medicare contact specialist to a significant other at home: No Do you presently have visiting nurse or other home services: No Alcohol intake: never Patient Tobacco Use Status: Never used Tobacco Smoked in Last 30 Days: No e-Cigarette/Vaping Use: Never Used Second Hand Smoke Exposure: No Use of substances other than those prescribed or required for medical reasons: No Advance Directives: No Advance Directives Information Provided: Yes Patient : No service: No Current occupational status: unemployed Sexual orientation: Straight/Heterosexual Gender identity: Female Cognitive needs: No Hearing needs: No Vision needs: Yes Physical Exam ED Vital Signs: Vital Signs - 24 hr 11/02/22 01:58 11/02/22 03:16 11/02/22 03:48 Temperature 98.0 F 98.1 F Pulse Rate 69 86 Respiratory Rate 20 26 H 26 H Blood Pressure 114/72 134/64 Pulse Oximetry 97 99 Oxygen Delivery Method Room Air Room Air 11/02/22 04:00 Temperature Pulse Rate 63 Respiratory Rate 17 Blood Pressure 116/55 L Pulse Oximetry 97 Oxygen Delivery Method Room Air BMI result Body Mass Index 45.3 Vital signs have been reviewed as appeared to be correct. Blood pressure normal. Heart rate normal. Respiration rate normal. Temperature normal. Oxygen saturation normal. Appearance: Alert. Oriented X3. acute distress due to pelvic pain Head: Normal external exam. Normocephalic. Atraumatic. No [place] signs noted. No raccoon eyes noted Eyes: PERRLA. EOMI. Conjunctiva and sclera normal. Eyelids normal. ENT: TM's Normal. Pharynx normal. Uvula midline. Moist mucous membranes. No trismus noted. No drooling noted. No muffled voice noted. Neck: Normal inspection. Neck supple. FROM. No adenopathy. Thyroid Normal. No meningeal signs. No neck mass noted. CVS: Normal heart rate and rhythm. Heart sound normal. No murmurs noted. Pulses normal throughout. Respiratory: No respiratory distress. Painless inspiration. Breath sounds normal. No wheezes/rales/rhonchi noted. Chest nontender. No accessory muscle usage noted or decreased air movement noted. Abdomen: Soft and nontender. Bowel sounds normal in all 4 quadrants. No distention noted. No organomegaly noted. No visible injury noted. Pelvic exam: Deferred patient just had a pelvic examination by Dr. Wharton yesterday. Back: No CVA tenderness. Full range of motion noted. Skin: Skin warm and dry. Normal skin color. Normal skin turgor. No rashes/lesions/lacerations noted. Extremities: No lower extremity edema. Extremities exhibit normal range of motion. Extremities nontender. Neuro: Oriented X 3. Cranial nerve exam: II-XII are grossly intact No motor deficit. No sensory deficit. Reflexes normal. Course Course Course Narrative: Patient feels much better after was given Dilaudid IM and Toradol, patient is on the trial of antibiotic treatment also was given the option of hysterectomy by Dr. Wharton if the antibiotic trial when not resolved patient's problem. Will prescribe oxycodone to help patient's pain patient was instructed to follow up with Dr. Wharton as an outpatient, leukocytosis which is reactionary. Medical Decision Making Differential Diagnosis Differential Diagnoses: The differential diagnosis associated with the presentation includes (Chronic pelvic pain, PID, uterine fibroid.) Admission/Observation Consideration of admission/observation: Escalation of care including admission/observation considered Lab Data MDM Lab Attestation statement: I reviewed the patient's lab results. 11/02/22 02:24 11/02/22 02:24 Labs: Lab Results 11/02/22 11/02/22 11/02/22 Range/Units 02:24 02:24 02:24 WBC 14.0 H (4.8-10.8) X10*3/uL RBC 4.68 (4.20-5.50) X10*6/uL Hgb 8.7 L (12.0-16.0) g/dl Hct 30.7 L (37.0-47.0) % MCV 65.6 L (80.0-98.0) fL MCH 18.6 L (27.0-33.0) pg MCHC 28.3 L (31.0-35.0) g/dl RDW 19.9 H (11.0-16.0) % Plt Count 363 (160-400) X10*3/uL MPV 10.5 (9.4-12.3) fL Immature Gran % (Auto) 0.4 (0.0-0.4) % Neut % (Auto) 71.4 (45-73) % Lymph % (Auto) 17.6 L (20-40) % [place] % (Auto) 7.2 (2-11) % Eos % (Auto) 3.0 (0-4) % Baso % (Auto) 0.4 (0-2) % Lymph # (Auto) 2.5 (1.2-4.9) X10*3/uL [place] # (Auto) 1.0 (0.1-1.2) X10*3/uL Eos # (Auto) 0.4 (0.0-0.4) X10*3/uL Baso # (Auto) 0.1 (0.0-0.2) X10*3/uL Abs Immat Gran (auto) 0.05 H (0.00-0.03) X10*3/uL Absolute Neuts (auto) 10.0 H (2.0-8.3) x10*3/uL Absolute Nucleated RBC 0.000 (0.0-0.012) X10*3/uL Nucleated RBC % (auto) 0.0 (0.0-0.2) /100WBC Sodium 139 (135-145) mmol/L Potassium 4.2 (3.3-5.1) mmol/L Chloride 108 (96-108) mmol/L Carbon Dioxide 22 (22-29) mmol/L Anion Gap 13 (12-20) BUN 13 (9-16) mg/dL Creatinine 0.59 (0.5-1.4) mg/dL Estim Creat Clear Calc 165.6 Estimated GFR > 60 Random Glucose 82 (60-115) mg/dL Calcium 8.8 (8.4-10.2) mg/dL Total Bilirubin 0.7 (0.0-1.0) mg/dL AST 16 (5-31) U/L ALT 13 (0-31) U/L Alkaline Phosphatase 92 (39-117) U/L Total Protein 6.8 (6.5-8.0) g/dL Albumin 3.6 (3.5-5.0) g/dL Urine Color Yellow Urine Appearance Clear Urine pH 6.0 (5.0-9.0) Ur Specific [place] 1.020 (1.005-1.025) Urine Protein Negative (Neg-Trace) mg/dL Urine Glucose (UA) Negative (Negative) mg/dL Urine Ketones Negative (Negative) mg/dL Urine Blood Negative (Negative) Urine Nitrite Negative (Negative) Ur Leukocyte Esterase Negative (Negative) Medications Administered Discontinued Medications Generic Name Dose Route Start Last Admin Trade Name Freq PRN Reason Stop Dose Admin Hydromorphone HCl 2 mg 11/02/22 03:44 11/02/22 03:48 Hydromorphone Hcl 2 Mg/Ml Vial IM 11/02/22 03:45 2 mg ONCE ONE Administration Protocol Ketorolac Tromethamine 30 mg 11/02/22 03:44 11/02/22 03:48 Ketorolac Tromethamine 30 Mg/Ml Vial IM 11/02/22 03:45 30 mg ONCE ONE Administration Discharge Plan Discharge Clinical Impression: Pelvic pain Patient Disposition: Home, Self-Care Instructions: Pelvic Pain in Women (ED) Prescriptions: New oxycodone 5 mg tablet 5 mg PO Q6H PRN (Reason: pain) Qty: 10 0RF Rx Instructions: Partial Fill upon patient request. No Action folic acid 1 mg tablet 1 mg PO DAILY 90 Days Qty: 90 3RF ferrous sulfate 325 mg (65 mg iron) tablet 325 mg PO TID 30 Days Qty: 90 6RF cholecalciferol (vitamin D3) 50 mcg (2,000 unit) capsule 50 mcg PO DAILY 90 Days Qty: 90 3RF ketorolac 10 mg tablet 10 mg PO Q6H PRN (Reason: pain) 5 Days Qty: 20 0RF Rx Instructions: Patient received Toradol in the emergency room. senna 8.6 mg capsule 8.6 mg PO BEDTIME PRN (Reason: constipation) 90 Days Qty: 90 1RF cyanocobalamin (vitamin B-12) 1,000 mcg tablet 1,000 mcg PO DAILY metronidazole 500 mg tablet 500 mg PO BID 14 Days Qty: 28 0RF doxycycline hyclate 100 mg capsule 100 mg PO BID 14 Days Qty: 28 0RF Referrals: Ila Brown MD [Primary Care Provider] - Shaka Wharton MD [Physician] -
[2022-11-02] MEDS: HYDROmorphone HCl 2 MG/ML VIAL IM (03:48)
[2022-11-02] MEDS: Ketorolac Tromethamine 30 MG/ML VIAL IM (03:48)
--- NOTE | 2022-11-02 05:37 | PC.NURSE ---
aware of bp 100/42
--- NOTE | 2022-11-02 06:23 | PC.NURSE ---
verbal order from Dr. Goldman- 4mg zofran sublingual for nausea STAT
[2022-11-02] MEDS: Ondansetron ODT 4 MG TAB.RAPDIS TRANSLINGU (06:28)
--- NOTE | 2022-11-02 07:10 | PC.NURSE ---
nausea resolved Discharge instructions given and explained to pt No apparent distress ambulates safely/independently boyfriend at bedside [id number] All of pt's questions answered
== END 2022-11-02 07:15 | disposition home or self-care (01) ==
PROVIDERS: Emergency Provider Emergency Medicine; PCP Internal Medicine
DX: R10.2 Pelvic and perineal pain (principal); R11.0 Nausea; I95.2 Hypotension due to drugs; T40.2X5A Adverse effect of other opioids, initial encounter; Y92.238 Other place in hospital as the place of occurrence of the external cause
CPT/HCPCS: 36415; 80053; 81003; 85025; 96372; 99284; 99285; J1170; J1885

== ENCOUNTER 2022-11-10 14:46 | Outpatient (AMB) | payer OTHER, SELFPAY ==
--- NOTE | 2022-11-10 14:51 | MHC.OFFVIS ---
Intake Vital Signs 11/10/22 14:52 Height 5 ft 2 in Weight 244 lb BMI 44.6 BP 120/76 Intake Visit Reasons: Pelvic pain follow up Package Lift Operator Required: Yes Package Lift Operator Language: Loading Machine Adjuster Name: Marysol WILSON Information Interpreted: non-clinical & clinical Accompanied by: Self / Same As Patient Allergies No Known Allergies [No Known Allergies*] Allergy (Verified 11/10/22 14:53) HPI HPI Comments History of Present Illness Details The patient is presenting as a follow-up after treatment for PID with ceftriaxone doxycycline and Flagyl. Patient was seen 2 weeks ago in the emergency room visit with pelvic discomfort of few months duration with no associated vaginal discharge and the patient has been amenorrheic since her endometrial ablation.? The following workup was done CBC:? Normal WBC, H&H 8.9/31.4 UA was negative Urine test was negative Pelvic ultrasound showed the following Uterus: The uterus is anteverted and measures 10.1 x 6.4 x 7.7 cm.? The double wall endometrial thickness is 4 mm. Complex fluid within the endometrial cavity measuring up to 3.8 cm in AP dimension, new when compared to the prior examination. The uterus is smooth in contour and has normal myometrial echogenicity. Right uterine body fibroid measuring up to 2.9 x 2.6 x 2.6 cm. This appears different than the previously seen uterine fibroid which measured up to 1.5 cm. Reported interval endometrial ablation in August 2021. Adnexa: Both ovaries are visualized. There is normal color flow to the adnexa. There is no ovarian torsion.? There is no pelvic ascites or fluid collection. Left ovarian dominant follicles measuring up to 1.9 and 1.5 cm. Right ovary measures 2.5 x 1.9 x 1.4 cm. Ovarian volume of 3.5 mL. Left ovary measures 2.3 x 1.4 x 3.2 cm. Ovarian volume of 5.4 mL. Last co testing done in 07/07 was negative, last endometrial biopsy done in 09/05 was negative for endometrial lesion or malignancy and last mammogram was in 07/07 BI-RADS 1 So the differential diagnosis was discussed with the patient including PID, myomas or post ablation syndrome and was given antibiotic treatment for PID tbut she did not have any improvement. Still complaining of pelvic pain no fever or chills. In addition the patient is requesting a refill on her Valtrex [facility] Medical History Abnormal thyroid blood test Anemia Anxiety ASCUS with positive high risk HPV cervical B12 deficiency Cervical low risk human papillomavirus (HPV) DNA test positive Constipation by delayed colonic transit Depression Michael's disease Headache Iron deficiency anemia Lumbar radiculopathy Moderate recurrent major depression Morbid obesity with BMI of 40.0-44.9, adult Morbid obesity with BMI of 45.0-49.9, adult Morbid obesity with BMI of 50.0-59.9, adult Panic attacks Physical exam Pituitary microadenoma Surgical History History of appendectomy History of endometrial ablation History of laparoscopic cholecystectomy History of lumpectomy of right breast History of Lulu-en-Y gastric bypass History of sleeve gastrectomy History of tubal ligation History of tympanostomy tube placement Family History Father Hypertension Mother Hypertension Maternal Grandmother Leukemia Paternal Grandmother Myocardial infarction Hypertension Maternal Aunt History of breast cancer Maternal Aunt History of breast cancer Maternal Aunt History of breast cancer Paternal Aunt History of breast cancer Paternal Aunt History of breast cancer Social History Household Members: Family Housing: Apartment Are you a primary primary care pediatrician to a significant other at home: No Do you presently have visiting nurse or other home services: No Alcohol intake: never Patient Tobacco Use Status: Never used Tobacco e-Cigarette/Vaping Use: Never Used Second Hand Smoke Exposure: No service: No Current occupational status: unemployed Sexual orientation: Straight/Heterosexual Gender identity: Female Cognitive needs: No Hearing needs: No Vision needs: Yes Female Reproductive History Menstrual Age of Menarche: 10 Review of Systems Const All systems reviewed & are unremarkable except as noted in HPI and below Reports as per HPI and Reports no additional complaints GI Reports no additional complaints Reports no additional complaints Physical Exam Vital Signs: Last Vital Signs BP 120/76 11/10/22 14:52 BMI result Body Mass Index 44.6 Assessment & Plan Assessment & Plan (1) Pelvic pain: Comment: Myoma versus post endometrial ablation syndrome Code(s): R10.2 - Pelvic and perineal pain Plan: Discussed with the patient differential diagnosis for pelvic pain including but not limited to myoma versus postablation syndrome in addition options of treatment including medical versus surgical treatment. All pros and cons, risks and benefits of each were discussed with the patient, the patient decided to proceed with hysterectomy. Discussed with the patient the different types of hysterectomies including, vaginal, laparoscopic assisted vaginal, robotic assisted laparoscopic,& abdominal with BSO. All pros, cons, r/b of each approach were discussed the patient including evidence that morbidity is less and recovery is shorter with minimally invasive approaches to hysterectomy. Discussed with the patient the lack of availability of the robot NanoVasci robot and/or minimally invasive housekeeping attendant specialist at [facility]. Will refer the patient to a tertiary care center, PC to be joint (2) Herpes: Code(s): B00.9 - Herpesviral infection, unspecified Plan: Valtrex 500 mg p.o. b.i.d. for 3 days p.r.n. outbreak was 65% patient's fundus Medications: New valacyclovir 500 mg PO BID 6 tabs 0RF 3 days Coding Level of Care Code Est Pt Level 3 (37237) Diagnoses Pelvic pain R10.2 Herpes B00.9
[2022-11-10 14:52] VITALS: BP 120/76; BMI 44.6
== END 2022-11-10 15:00 | disposition home or self-care (01) ==
LOC: HO.HWS 14:47
PROVIDERS: PCP Internal Medicine; Visit Provider Obstetrics & Gynecology
DX: R10.2 Pelvic and perineal pain (principal); B00.9 Herpesviral infection, unspecified
CPT/HCPCS: 99213

== ENCOUNTER → 2022-11-10 14:46 | Outpatient (BNVA) | payer OTHER, SELFPAY | PROVIDERS: PCP Internal Medicine; Visit Provider Obstetrics & Gynecology | DX: R10.2 Pelvic and perineal pain (principal); B00.9 Herpesviral infection, unspecified | CPT/HCPCS: 99212 ==

== ENCOUNTER 2022-12-06 22:17 | Emergency (ER) | payer OTHER, SELFPAY ==
[2022-12-06 22:40] VITALS: BP 92/65; PULSE 79; RESP 18; TEMP 36.6; O2SAT 96; BMI 45.4
[2022-12-06 22:57] VITALS: BP 115/57; PULSE 73; RESP 18; TEMP 36.8; O2SAT 94
--- OUTSIDE RECORDS SUMMARY | 2022-12-06 23:19 | XMS_ITS | Continuity of Care Document ---
Author Name Unknown [facility] [employer] [facility] Address [address] [place] [address], [address] [place] [address]- Care Team Providers Care Commercial Green Retrofit Architect Name Role Phone Bandar Borden MD, Ila Gandhi [facility] Phys[id number] Date[facility]s): 11/18/22 - 11/25/22 [facility] [address], [address] [place] [address]- Attending Physician: Jonh MUHAMMAD, Meenu Fofana Referring Physician: Akiko MUHAMMAD , Shaka Chau Allergies, Adverse Reactions, Alerts No Known Allergies Medications Ibuprofen Refills 0, Maintenance, 11/18/22 10:28:00 EDT, Partial fill upon patient request if the prescription is for a schedule II opioid drug. Start Date: 11/18/22 Status: Ordered medroxyPROGESTERone 10 mg oral tablet 10 mg, 1, tablet, By Mouth, 2 times a day, # 60 tablet, Refills 3, Tot. Refills 3, Maintenance, 11/18/22 11:46:00 EDT, Route to Pharmacy Electronically, [facility]pharm[facility] #[id number], Partial fill upon patient request if the prescription is for a schedule II opi... Start Date: 11/18/22 Stop Date: 03/18/23 Status: Ordered Multivitamin 1 tablet, By Mouth, Daily, 0 Refills, Maintenance, 06/21/13 8:27:05 Start Date: 06/21/13 Status: Ordered Problem List Condition Confirmation Course Effective Dates Status Health St atus Informant Anemia Confirmed Active History of Lulu-en-Y gastric bypass Confirmed Active Hypertension Confirmed Active Morbid Obesity Confirmed Active Pain in back Confirmed Active Post endometrial ablation syndrome Confirmed Active Sleep apnea Confirmed Active Procedures Procedure Date Related Diagnosis Body Site Status Endometrial ablation Comp leted Laparoscopic cholecystectomy Completed Laparoscopic sleeve gastrectomy Completed Lulu-en-y gastric bypass Completed Vital Signs Most recent to oldest [Reference Range]: 1 Weight 119 kg (11/18/22 10:27 AM) Blood Pressure [90-138/55-84 mm Hg] 120/ 74mm Hg (11/18/22 10:27 AM) Blood pressure sites Arm, right (11/18/22 10:27 AM) Weight Obtained Via Standing scale (11/18/22 10:27 AM) Social History Social History Type Response Smoking Status Never (less than 100 in lifetime) entered on: 11/18/22 Sex Patient Care team information Care Team Personnel Name: Shavon Kennedy RN Position: [facility] RN Member Role: Primary Care Nurse Name: Jannette Hoskins RN Position: [facility] SN RN Member Role: Primary Care Nurse Name: Lisa Maldonado RN Position: [facility] RN Member Role: Primary Care Nurse Name: Gerri Mendoza RN Position: [facility] SN Sharepoint Designer Developer Member Role: Primary Care Nurse Name: Ila Brown MD Position: Reference Physician Member Role: PCP Address: Address: [address] [place], [place] [address] Name: Erendira Agarwal RN Position: [facility] ED RN W/OE and Tasks Member Role: Primary Care Nurse Name: Jessica GOLDBERG, Pat Goel Position: [facility] Onco RN Member Role: Primary Care Nurse Name: Sue Rodriguez RN Position: [facility] Script Worker Member Role: Primary Care Nurse Care Team Related Persons Name: RACHAEL BULLOCK Name: COLTEN COOPER Address: home [address] [place] [address] Name: WYATT SELF
--- NOTE | 2022-12-06 23:38 | ED_ITS ---
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 Wharton office and at [facility] patient is scheduled to have hysterectomy on 02/03/2023 for chronic pelvic pain. Patient was seen in the emergency department at several visits for similar presentation. Patient was diagnosed with fibroid uterus and also patient was positive for HPV. Related Data Home Medications Medication Instructions Recorded Confirmed cyanocobalamin (vitamin B-12) 1,000 mcg PO DAILY 07/03/20 06/08/22 1,000 mcg tablet Previous Rx's Medication Instructions Recorded folic acid 1 mg tablet 1 mg PO DAILY 90 days #90 tabs 05/13/20 sennosides 8.6 mg capsule (senna) 8.6 mg PO BEDTIME PRN constipation 09/02/20 90 days #90 caps ferrous sulfate 325 mg (65 mg 325 mg PO TID 30 days #90 tabs 12/14/20 iron) tablet cholecalciferol (vitamin D3) 50 50 mcg PO DAILY 90 days #90 caps 07/01/21 mcg (2,000 unit) capsule ketorolac 10 mg tablet 10 mg PO Q6H PRN pain 5 days #20 10/29/22 tabs doxycycline hyclate 100 mg capsule 100 mg PO BID 14 days #28 caps 11/01/22 metronidazole 500 mg tablet 500 mg PO BID 14 days #28 tabs 11/01/22 oxycodone 5 mg tablet 5 mg PO Q6H PRN pain #10 tabs 11/02/22 valacyclovir 500 mg tablet 500 mg PO BID 3 days #6 tabs 11/10/22 Allergies Allergy/AdvReac Type Severity Reaction Status Date / Time No Known Allergies Allergy Verified 11/10/22 14:53 [No Known Allergies*] Review of Systems Review of Systems: All other systems are reviewed and are negative Constitutional: Reports as per HPI and Reports no additional constitutional complaints Eyes: Reports as per HPI and Reports no additional eye complaints Reports system reviewed and no additional complaints, except as documented Cardiovascular: Reports as per HPI and Reports no additional cardiovascular complaints Respiratory: Reports as per HPI and Reports no additional respiratory complaints Gastrointestinal: Reports as per HPI and Reports no additional gastrointestinal complaints Genitourinary: Reports no additional female genitourinary complaints Musculoskeletal: Reports no additional musculoskeletal complaints Skin/Breast: Reports system reviewed and no additional complaints, except as docu Psychiatric: Reports no additional psychiatric complaints Endocrine: Reports no additional endocrine complaints Hematologic/Lymphatic: Reports no additional hematologic/lymphatic complaints Allergic/Immunologic: Reports no additional allergic/immunologic complaints Reports system reviewed and no additional complaints, except as documented and Reports Abnormal speech present PMFSH Past Medical History Medical History Abnormal thyroid blood test Anemia Anxiety ASCUS with positive high risk HPV cervical B12 deficiency Cervical low risk human papillomavirus (HPV) DNA test positive Constipation by delayed colonic transit Depression Michael's disease Headache Iron deficiency anemia Lumbar radiculopathy Moderate recurrent major depression Morbid obesity with BMI of 40.0-44.9, adult Morbid obesity with BMI of 45.0-49.9, adult Morbid obesity with BMI of 50.0-59.9, adult Panic attacks Physical exam Pituitary microadenoma Surgical History History of appendectomy History of endometrial ablation History of laparoscopic cholecystectomy History of lumpectomy of right breast History of Lulu-en-Y gastric bypass History of sleeve gastrectomy History of tubal ligation History of tympanostomy tube placement Family History Family History Father Hypertension Mother Hypertension Maternal Grandmother Leukemia Paternal Grandmother Myocardial infarction Hypertension Maternal Aunt History of breast cancer Maternal Aunt History of breast cancer Maternal Aunt History of breast cancer Paternal Aunt History of breast cancer Paternal Aunt History of breast cancer Social History Social History Household Members: Family Housing: Apartment Are you a primary caretaker grounds to a significant other at home: No Do you presently have visiting nurse or other home services: No Alcohol intake: never Patient Tobacco Use Status: Never used Tobacco Smoked in Last 30 Days: No e-Cigarette/Vaping Use: Never Used Second Hand Smoke Exposure: No Use of substances other than those prescribed or required for medical reasons: No Advance Directives: No Advance Directives Information Provided: Yes Patient : No service: No Current occupational status: unemployed Sexual orientation: Straight/Heterosexual Gender identity: Female Cognitive needs: No Hearing needs: No Vision needs: Yes Physical Exam ED Vital Signs: Vital Signs - 24 hr 12/06/22 22:40 12/06/22 22:57 12/06/22 23:51 Temperature 97.9 F 98.3 F 98.2 F Pulse Rate 79 73 88 Respiratory Rate 18 18 18 Blood Pressure 92/65 115/57 L 124/80 Pulse Oximetry 96 94 95 Oxygen Delivery Method Room Air Room Air Room Air BMI result Body Mass Index 45.4 Vital signs have been reviewed as appeared to be correct. Blood pressure normal. Heart rate normal. Respiration rate normal. Temperature normal. Oxygen saturation normal. Appearance: Alert. Oriented X3. No acute distress. Head: Normal external exam. Normocephalic. Atraumatic. No Payan signs noted. No raccoon eyes noted Eyes: PERRLA. EOMI. Conjunctiva and sclera normal. Eyelids normal. ENT: TM's Normal. Pharynx normal. Uvula midline. Moist mucous membranes. No trismus noted. No drooling noted. No muffled voice noted. Neck: Normal inspection. Neck supple. FROM. No adenopathy. Thyroid Normal. No meningeal signs. No neck mass noted. CVS: Normal heart rate and rhythm. Heart sound normal. No murmurs noted. Pulses normal throughout. Respiratory: No respiratory distress. Painless inspiration. Breath sounds normal. No wheezes/rales/rhonchi noted. Chest nontender. No accessory muscle usage noted or decreased air movement noted. Abdomen: Soft and nontender. Bowel sounds normal in all 4 quadrants. No distention noted. No organomegaly noted. No visible injury noted. Pelvic exam: Deferred. Back: No CVA tenderness. Full range of motion noted. Skin: Skin warm and dry. Normal skin color. Normal skin turgor. No rashes/lesions/lacerations noted. Extremities: No lower extremity edema. Extremities exhibit normal range of motion. Extremities nontender. Neuro: Oriented X 3. Cranial nerve exam: II-XII are grossly intact No motor deficit. No sensory deficit. Reflexes normal. Course Course Course Narrative: 42-year-old female with a chronic pelvic pain patient scheduled for hysterectomy in 1 months at [facility], patient received Dilaudid/Toradol with 1 L of IV fluid. ( in the past patient dropp blood pressure with Dilaudid). Medications Administered Generic Name Dose Route Start Last Admin Trade Name Chance PRN Reason Stop Dose Admin Sodium Chloride 1,000 mls @ 999 mls/hr 12/06/22 23:48 12/06/22 23:58 Ns IV 12/07/22 00:48 999 mls/hr .Q1H1M ONE Administration Discontinued Medications Generic Name Dose Route Start Last Admin Trade Name Chance PRN Reason Stop Dose Admin Hydromorphone HCl 1 mg 12/06/22 23:37 12/07/22 00:43 Hydromorphone Hcl 1 Mg/Ml Syringe IM 12/06/22 23:38 Not Given ONCE ONE Protocol Hydromorphone HCl 1 mg 12/06/22 23:48 12/06/22 23:59 Hydromorphone Hcl 1 Mg/Ml Syringe IVPUSH 12/06/22 23:49 1 mg ONCE ONE Administration Protocol Ketorolac Tromethamine 30 mg 12/06/22 23:37 12/07/22 00:43 Ketorolac Tromethamine 30 Mg/Ml Vial IM 12/06/22 23:38 Not Given ONCE ONE Ketorolac Tromethamine 15 mg 12/06/22 23:48 12/07/22 00:07 Ketorolac Tromethamine 15 Mg/Ml Vial IVPUSH 12/06/22 23:49 15 mg ONCE ONE Administration Medical Decision Making Differential Diagnosis Differential Diagnoses: The differential diagnosis associated with the presentation includes (Chronic pelvic pain.) Admission/Observation Consideration of admission/observation: Escalation of care including admission/observation considered Discharge Plan Discharge Clinical Impression: Chronic pelvic pain in female Patient Disposition: Home, Self-Care Instructions: Chronic Pain (ED) Additional Instructions: Contact your OBGYN tomorrow. Prescriptions: No Action folic acid 1 mg tablet 1 mg PO DAILY 90 Days Qty: 90 3RF ferrous sulfate 325 mg (65 mg iron) tablet 325 mg PO TID 30 Days Qty: 90 6RF cholecalciferol (vitamin D3) 50 mcg (2,000 unit) capsule 50 mcg PO DAILY 90 Days Qty: 90 3RF ketorolac 10 mg tablet 10 mg PO Q6H PRN (Reason: pain) 5 Days Qty: 20 0RF Rx Instructions: Patient received Toradol in the emergency room. oxycodone 5 mg tablet 5 mg PO Q6H PRN (Reason: pain) Qty: 10 0RF Rx Instructions: Partial Fill upon patient request. senna 8.6 mg capsule 8.6 mg PO BEDTIME PRN (Reason: constipation) 90 Days Qty: 90 1RF cyanocobalamin (vitamin B-12) 1,000 mcg tablet 1,000 mcg PO DAILY metronidazole 500 mg tablet 500 mg PO BID 14 Days Qty: 28 0RF doxycycline hyclate 100 mg capsule 100 mg PO BID 14 Days Qty: 28 0RF valacyclovir 500 mg tablet 500 mg PO BID 3 Days Qty: 6 0RF Referrals: Ila Brown MD [Primary Care Provider] - Stand Alone Forms: Work/School Release
[2022-12-06 23:51] VITALS: BP 124/80; PULSE 88; RESP 18; TEMP 36.8; O2SAT 95
[2022-12-06] MEDS: 0.9 % Sodium Chloride 1,000 ML 999 ML IV (23:58)
[2022-12-06] MEDS: HYDROmorphone HCl 1 MG/ML SYRINGE IVPUSH (23:59)
[2022-12-07] MEDS: Ketorolac Tromethamine 15 MG/ML VIAL IVPUSH (00:07)
== END 2022-12-07 01:50 | disposition home or self-care (01) ==
PROVIDERS: Emergency Provider Emergency Medicine; PCP Internal Medicine
DX: G89.29 Other chronic pain (principal); R10.2 Pelvic and perineal pain; E66.01 Morbid (severe) obesity due to excess calories; Z68.42 Body mass index [BMI] 45.0-49.9, adult; Z79.899 Other long term (current) drug therapy
CPT/HCPCS: 96374; 96375; 99284; 99285; J1170; J1885

== ENCOUNTER 2022-12-15 22:27 | Emergency (ER) | payer OTHER, SELFPAY ==
[2022-12-15 22:29] VITALS: BP 105/51; PULSE 105; RESP 18; TEMP 37.1; O2SAT 98; BMI 48.4
[2022-12-15 22:55] VITALS: BP 123/67; PULSE 97; RESP 22; TEMP 36.4; O2SAT 98
[2022-12-15 23:18] LABS: Hematocrit 32.4 % (37.0-47.0); Hemoglobin 9.4 g/dl (12.0-16.0); Mean Corpuscular Hemoglobin 18.9 pg (27.0-33.0); Mean Corpuscular Volume 65.2 fL (80.0-98.0); Mean Platelet Volume 9.6 fL (9.4-12.3); Platelet Count 463 X10*3/uL (160-400); Red Blood Count 4.97 X10*6/uL (4.20-5.50); White Blood Count 11.5 X10*3/uL (4.8-10.8)
--- NOTE | 2022-12-15 23:41 | PC.NURSE ---
Pt ca&ox4, tearful and bent over in pain. Pt reports 10/10 abdm pain and heavy bleeding with clots that started at about 10pm tonight Pt changed into hospital attire. labs collected IV placed Pt spouse at bedside. Plan of care ongoing.
[2022-12-15 23:48] LABS: Anion Gap 17 (12-20); Calcium 9.4 mg/dL (8.4-10.2); Carbon Dioxide 17 mmol/L (22-29); Chloride 111 mmol/L (96-108); Potassium 3.9 mmol/L (3.3-5.1); Sodium 141 mmol/L (135-145); Total Protein 7.6 g/dL (6.5-8.0)
[2022-12-15 23:51] LABS: Alanine Aminotransferase 12 U/L (0-31); Albumin Level 4.1 g/dL (3.5-5.0); Alkaline Phosphatase 70 U/L (39-117); Aspartate Amino Transferase 12 U/L (5-31); Bilirubin Total 0.7 mg/dL (0.0-1.0); Blood Urea Nitrogen 19 mg/dL (9-16); Creatinine Clr Calc Pharmacy 133.3; Estimated Glomerular Filt Rate > 60; Glucose Random 100 mg/dL (60-115)
--- NOTE | 2022-12-16 00:15 | PC.NURSE ---
Pt reports she still has her ovaries. Urine sample requested Pt ambulated with a steady gait to restroom Pt SO remains at bedside. Pt reports she has been seen here not too long ago for the same type of pain but this is the worst its ever been. Plan of care ongoing.
[2022-12-16 00:29] LABS: Appearance Urine Cloudy; Color Urine Yellow; Glucose Urine UA Negative (Negative); Leukocyte Esterase Urine Negative (Negative); Nitrite Urine Negative (Negative); PH 5.5 (5.0-9.0); Specific Gravity - Urine >= 1.030 (1.005-1.025); UMIC TRIGGER UACC YES; Urine Blood Large (3+) (Negative); Urine Ketones Negative (Negative); Urine Protein 30 (1+) mg/dL (Neg-Trace)
[2022-12-16 00:32] LABS: Bacteria Urine None Seen (None Seen); Hyaline Casts Urine 0-2 /LPF (0-2); RBC Urine >20 /HPF (0-2); WBC Urine 0-5 /HPF (0-5)
--- NOTE | 2022-12-16 00:34 | ED.FEMALEGU ---
HPI - Female Genitourinary General Chief complaint: Vaginal Bleeding Stated complaint: cramping vaginal bleeding Time Seen by Provider: 12/16/22 00:15 Source: patient Mode of arrival: ambulatory Limitations: language barrier (Maldivian-speaking medical staff manager utilized) History of Present Illness HPI Narrative: Patient is a 42-year-old female who presents emergency department for evaluation of chronic pelvic pain for the past 6 months by her account. She is followed by OBGYN Dr. Wharton, she has been referred to [facility] to have a hysterectomy which is scheduled for 02/03/2023. She reports that tonight her pain became severe and was unrelieved with the use of acetaminophen. She also was endorsing a small amount of vaginal bleeding, initially was spotting, and placed a sanitary napkin at 21:00 and has not saturated through this, which was 4 hours ago. She states that she has had amenorrhea for the past year after endometrial ablation. She has been evaluated in this emergency department previously with similar complaints of pain. She denies possibility of . Related Data Home Medications Medication Instructions Recorded Confirmed cyanocobalamin (vitamin B-12) 1,000 mcg PO DAILY 07/03/20 06/08/22 1,000 mcg tablet Previous Rx's Medication Instructions Recorded folic acid 1 mg tablet 1 mg PO DAILY 90 days #90 tabs 05/13/20 sennosides 8.6 mg capsule (senna) 8.6 mg PO BEDTIME PRN constipation 09/02/20 90 days #90 caps ferrous sulfate 325 mg (65 mg 325 mg PO TID 30 days #90 tabs 12/14/20 iron) tablet cholecalciferol (vitamin D3) 50 50 mcg PO DAILY 90 days #90 caps 07/01/21 mcg (2,000 unit) capsule ketorolac 10 mg tablet 10 mg PO Q6H PRN pain 5 days #20 10/29/22 tabs doxycycline hyclate 100 mg capsule 100 mg PO BID 14 days #28 caps 11/01/22 metronidazole 500 mg tablet 500 mg PO BID 14 days #28 tabs 11/01/22 oxycodone 5 mg tablet 5 mg PO Q6H PRN pain #10 tabs 11/02/22 valacyclovir 500 mg tablet 500 mg PO BID 3 days #6 tabs 11/10/22 Allergies Allergy/AdvReac Type Severity Reaction Status Date / Time No Known Allergies Allergy Verified 12/15/22 22:35 [No Known Allergies*] Review of Systems Review of Systems: Yes all other systems are reviewed and are negative [facility] Past Medical History Attestation statement: The following information was validated with the patient. Source: old records reviewed Medical History Abnormal thyroid blood test Anemia Anxiety ASCUS with positive high risk HPV cervical B12 deficiency Cervical low risk human papillomavirus (HPV) DNA test positive Constipation by delayed colonic transit Depression Michael's disease Headache Iron deficiency anemia Lumbar radiculopathy Moderate recurrent major depression Morbid obesity with BMI of 40.0-44.9, adult Morbid obesity with BMI of 45.0-49.9, adult Morbid obesity with BMI of 50.0-59.9, adult Panic attacks Physical exam Pituitary microadenoma Surgical History History of appendectomy History of endometrial ablation History of laparoscopic cholecystectomy History of lumpectomy of right breast History of Lulu-en-Y gastric bypass History of sleeve gastrectomy History of tubal ligation History of tympanostomy tube placement Family History Family History Father Hypertension Mother Hypertension Maternal Grandmother Leukemia Paternal Grandmother Myocardial infarction Hypertension Maternal Aunt History of breast cancer Maternal Aunt History of breast cancer Maternal Aunt History of breast cancer Paternal Aunt History of breast cancer Paternal Aunt History of breast cancer Social History Social History Household Members: Family Housing: Apartment Are you a primary animal care taker to a significant other at home: No Do you presently have visiting nurse or other home services: No Alcohol intake: never Patient Tobacco Use Status: Never used Tobacco Smoked in Last 30 Days: No e-Cigarette/Vaping Use: Never Used Second Hand Smoke Exposure: No Use of substances other than those prescribed or required for medical reasons: No Advance Directives: No Advance Directives Information Provided: No service: No Current occupational status: unemployed Sexual orientation: Straight/Heterosexual Gender identity: Female Cognitive needs: No Hearing needs: No Vision needs: Yes Physical Exam Vital Signs: Vital Signs: Last Vital Signs Temp 97.5 F 12/15/22 22:55 Pulse 53 12/16/22 01:16 Resp 17 12/16/22 01:16 BP 93/43 L 12/16/22 01:16 Pulse Ox 97 12/16/22 01:16 O2 Del Method Room Air 12/16/22 01:16 BMI result Body Mass Index 48.4 Appearance: Alert.?Oriented to person, place and time. No acute distress.?Normal affect. Eyes: Pupils equal, round and reactive to light.? ENT: Pharynx normal.?? Neck: Normal inspection.? Neck supple.?? CVS: Heart sounds normal. Normal heart rate and rhythm.? Pulses normal.?? Respiratory: No respiratory distress.? Lung sounds clear to auscultation bilaterally?? Abdomen: Soft and non-tender. Normoactive bowel sounds. Genitourinary: Declines pelvic examination Skin: Skin warm and dry.? Normal skin color.? Extremities: No lower extremity edema.? Neuro: Moves all extremities spontaneously. Sensation intact bilaterally. Ambulates with normal steady gait. Medications Administered Generic Name Dose Route Start Last Admin Trade Name Freq PRN Reason Stop Dose Admin Sodium Chloride 1,000 mls @ 999 mls/hr 12/16/22 01:00 12/16/22 00:52 Ns IV 12/16/22 02:00 999 mls/hr .Q1H1M PHILIP Administration Discontinued Medications Generic Name Dose Route Start Last Admin Trade Name Freq PRN Reason Stop Dose Admin Hydromorphone HCl 1 mg 12/16/22 00:48 12/16/22 00:53 Hydromorphone Hcl 1 Mg/Ml Syringe IVPUSH 12/16/22 00:49 1 mg ONCE ONE Administration Protocol Ketorolac Tromethamine 30 mg 12/16/22 00:48 12/16/22 00:52 Ketorolac Tromethamine 30 Mg/Ml Vial IVPUSH 12/16/22 00:49 30 mg ONCE ONE Administration Medical Decision Making Medical Decision Making MDM Narrative: Patient is a 42-year-old female presenting to emergency department for evaluation of chronic pelvic pain, awaiting hysterectomy that is already scheduled. She is reporting severe pain, states that while in the emergency department previously when she has received Dilaudid as well as Toradol is the only thing that has helped her pain thus far. She appears in severe pain. Obtained serum labs which reveals mild leukocytosis baseline normocytic anemia consistent with prior labs, no indication for transfusion at this time. CMP is overall unremarkable. Urinalysis with hematuria present, no evidence of urinary tract infection. She declines pelvic examination. She has had significant improvement in her pain after being medicated in the emergency department. Advised that she will need to contact her OBGYN provider tomorrow morning to discuss a plan of care for management chronic pelvic pain until her hysterectomy. She verbalizes understanding of this. At this time she is stable for discharge Differential Diagnosis Differential Diagnoses: The differential diagnosis associated with the presentation includes (Pelvic inflammatory disease, myoma, fibroid uterus, ) Lab Data MDM Lab Attestation statement: I reviewed the patient's lab results. (Seen narrative above for further detail) 12/15/22 23:14 12/15/22 23:14 Labs: Lab Results 12/15/22 12/15/22 12/16/22 Range/Units 23:14 23:14 00:24 WBC 11.5 H (4.8-10.8) X10*3/uL RBC 4.97 (4.20-5.50) X10*6/uL Hgb 9.4 L (12.0-16.0) g/dl Hct 32.4 L (37.0-47.0) % MCV 65.2 L (80.0-98.0) fL MCH 18.9 L (27.0-33.0) pg MCHC 29.0 L (31.0-35.0) g/dl RDW 21.0 H (11.0-16.0) % Plt Count 463 H D (160-400) X10*3/uL MPV 9.6 (9.4-12.3) fL Absolute Nucleated RBC 0.000 (0.0-0.012) X10*3/uL Nucleated RBC % (auto) 0.0 (0.0-0.2) /100WBC Sodium 141 (135-145) mmol/L Potassium 3.9 (3.3-5.1) mmol/L Chloride 111 H (96-108) mmol/L Carbon Dioxide 17 L (22-29) mmol/L Anion Gap 17 (12-20) BUN 19 H (9-16) mg/dL Creatinine 0.71 (0.5-1.4) mg/dL Estim Creat Clear Calc 133.3 Estimated GFR > 60 Random Glucose 100 (60-115) mg/dL Calcium 9.4 D (8.4-10.2) mg/dL Total Bilirubin 0.7 (0.0-1.0) mg/dL AST 12 (5-31) U/L ALT 12 (0-31) U/L Alkaline Phosphatase 70 (39-117) U/L Total Protein 7.6 (6.5-8.0) g/dL Albumin 4.1 (3.5-5.0) g/dL Urine Color Yellow Urine Appearance Cloudy Urine pH 5.5 (5.0-9.0) Ur Specific [place] >= 1.030 H (1.005-1.025) Urine Protein 30 (1+) H (Neg-Trace) mg/dL Urine Glucose (UA) Negative (Negative) mg/dL Urine Ketones Negative (Negative) mg/dL Urine Blood Large (3+) H (Negative) Urine Nitrite Negative (Negative) Ur Leukocyte Esterase Negative (Negative) Urine RBC >20 H (0-2) /HPF Urine WBC 0-5 (0-5) /HPF Ur Squamous Epith Cells 3-5 (0-2) /HPF Urine Bacteria None Seen (None Seen) Hyaline Casts 0-2 (0-2) /LPF Urine Test (NEGATIVE) 12/16/22 Range/Units 00:24 WBC (4.8-10.8) X10*3/uL RBC (4.20-5.50) X10*6/uL Hgb (12.0-16.0) g/dl Hct (37.0-47.0) % MCV (80.0-98.0) fL MCH (27.0-33.0) pg MCHC (31.0-35.0) g/dl RDW (11.0-16.0) % Plt Count (160-400) X10*3/uL MPV (9.4-12.3) fL Absolute Nucleated RBC (0.0-0.012) X10*3/uL Nucleated RBC % (auto) (0.0-0.2) /100WBC Sodium (135-145) mmol/L Potassium (3.3-5.1) mmol/L Chloride (96-108) mmol/L Carbon Dioxide (22-29) mmol/L Anion Gap (12-20) BUN (9-16) mg/dL Creatinine (0.5-1.4) mg/dL Estim Creat Clear Calc Estimated GFR Random Glucose (60-115) mg/dL Calcium (8.4-10.2) mg/dL Total Bilirubin (0.0-1.0) mg/dL AST (5-31) U/L ALT (0-31) U/L Alkaline Phosphatase (39-117) U/L Total Protein (6.5-8.0) g/dL Albumin (3.5-5.0) g/dL Urine Color Urine Appearance Urine pH (5.0-9.0) Ur Specific [place] (1.005-1.025) Urine Protein (Neg-Trace) mg/dL Urine Glucose (UA) (Negative) mg/dL Urine Ketones (Negative) mg/dL Urine Blood (Negative) Urine Nitrite (Negative) Ur Leukocyte Esterase (Negative) Urine RBC (0-2) /HPF Urine WBC (0-5) /HPF Ur Squamous Epith Cells (0-2) /HPF Urine Bacteria (None Seen) Hyaline Casts (0-2) /LPF Urine Test NEGATIVE (NEGATIVE) Independent Historian Clinical information obtained from an independent historian. History obtained from or confirmed by: Spouse (Present at bedside who confirms history) External Record Review External record reviewed: Outpatient record Prescription Management I considered prescription management with: Pain Medication Discharge Plan Discharge Clinical Impression: Chronic pelvic pain in female Patient Disposition: Home, Self-Care Prescriptions: No Action folic acid 1 mg tablet 1 mg PO DAILY 90 Days Qty: 90 3RF ferrous sulfate 325 mg (65 mg iron) tablet 325 mg PO TID 30 Days Qty: 90 6RF cholecalciferol (vitamin D3) 50 mcg (2,000 unit) capsule 50 mcg PO DAILY 90 Days Qty: 90 3RF ketorolac 10 mg tablet 10 mg PO Q6H PRN (Reason: pain) 5 Days Qty: 20 0RF Rx Instructions: Patient received Toradol in the emergency room. oxycodone 5 mg tablet 5 mg PO Q6H PRN (Reason: pain) Qty: 10 0RF Rx Instructions: Partial Fill upon patient request. senna 8.6 mg capsule 8.6 mg PO BEDTIME PRN (Reason: constipation) 90 Days Qty: 90 1RF cyanocobalamin (vitamin B-12) 1,000 mcg tablet 1,000 mcg PO DAILY metronidazole 500 mg tablet 500 mg PO BID 14 Days Qty: 28 0RF doxycycline hyclate 100 mg capsule 100 mg PO BID 14 Days Qty: 28 0RF valacyclovir 500 mg tablet 500 mg PO BID 3 Days Qty: 6 0RF Referrals: Shaka Wharton MD [Physician] -
[2022-12-16] MEDS: Ketorolac Tromethamine 30 MG/ML VIAL IVPUSH (00:52)
[2022-12-16] MEDS: 0.9 % Sodium Chloride 1,000 ML 999 ML IV (00:52)
[2022-12-16 00:53] VITALS: RESP 16
[2022-12-16] MEDS: HYDROmorphone HCl 1 MG/ML SYRINGE IVPUSH (00:53)
[2022-12-16 00:55] LABS: UPreg QC Valid YES; Urine Pregnancy NEGATIVE (NEGATIVE)
--- NOTE | 2022-12-16 01:01 | PC.NURSE ---
Pt now reporting her surgery scheduled in Jan and has not had a hysterectomy Pt medicated per mar. Pt given fluids Pt spouse requesting and given something to drink and a blanket. Plan of care ongoing.
[2022-12-16 01:16] VITALS: BP 93/43; PULSE 53; RESP 17; O2SAT 97
--- NOTE | 2022-12-16 01:21 | PC.NURSE ---
B/p 93/43. Provider Barcome aware Plan of care ongoing.
== END 2022-12-16 01:56 | disposition home or self-care (01) ==
PROVIDERS: Nurse Practitioner Family; Emergency Provider Emergency Medicine; PCP Internal Medicine
DX: G89.29 Other chronic pain (principal); R10.2 Pelvic and perineal pain; E66.9 Obesity, unspecified; Z68.42 Body mass index [BMI] 45.0-49.9, adult; Z98.51 Tubal ligation status; Z90.49 Acquired absence of other specified parts of digestive tract; Z98.84 Bariatric surgery status
CPT/HCPCS: 36415; 80053; 81001; 81025; 85027; 96374; 96375; 99284; J1170; J1885

== ENCOUNTER 2023-01-24 13:15 | Outpatient (AMB) | payer OTHER, SELFPAY ==
--- NOTE | 2023-01-24 13:16 | A.OFFPC_ITS ---
Vital Signs 01/24/23 13:18 Height 5 ft 3 in Weight 263 lb 4 oz BMI 46.6 BP 110/70 Blood Pressure Location Rt brachial Position Sitting Pulse 72 Pulse Source Pulse Oximeter Pulse Oximetry (%) 92 Oxygen Delivery Method Room Air Intake Visit Reasons: Hysterectomy, 02/07 Intake Note: Patient is here for a Pre-op for Hysterectomy scheduled with Dr Meenu Borja ([facility]) on 02/07/23. Per pt here vit D and C were high. Pot Press Operator Required: Yes Pot Press Operator Language: Autographer Name: Deep Mosqueda ([id number]) Information Interpreted: non-clinical & clinical Rn Oncology Research: Not Required per policy Accompanied by: Self / Same As Patient Allergies No Known Allergies [No Known Allergies*] Allergy (Verified 01/24/23 13:54) Medication List - Last Reconciled 01/24/23 by OLVIN Cramer ferrous sulfate 325 mg PO TID 30 days medroxyprogesterone mg PO Tobacco use date assessed: 01/24/23 Dental Screening Dental Screen Date: 01/24/23 Did you have a dental visit in the last 12 months?: No Did you have a dental problem in the last 6 months where you did not have access to dental care?: No Was dental information given to patient?: Patient has dentist HPI HPI Comments History of Present Illness Details 42-year-old female past medical history significant depression, vitamin B12 deficiency, iron deficiency anemia, Michael's, radiculopathy, pituitary micro adenoma and leiomyoma of uterus. Patient of Dr. Portillo presents today for pre-op appointment for partial hysterectomy under general anesthesia. Denies prior complications to anesthesia. Denies CP,palpitation, sob and syncope. CBC, CMP, TSH, PT/INR in EKG ordered preoperatively. Call lost with rock climbing instructor 1st rock climbing instructor; second medical diagnostic radiographer Jerod [phone], utilized to complete this appointment. [facility] Medical History Abnormal thyroid blood test Anemia Anxiety ASCUS with positive high risk HPV cervical B12 deficiency Cervical low risk human papillomavirus (HPV) DNA test positive Constipation by delayed colonic transit Depression Michael's disease Headache Iron deficiency anemia Lumbar radiculopathy Moderate recurrent major depression Morbid obesity with BMI of 40.0-44.9, adult Morbid obesity with BMI of 45.0-49.9, adult Morbid obesity with BMI of 50.0-59.9, adult Panic attacks Physical exam Pituitary microadenoma Surgical History History of endometrial ablation History of lumpectomy of right breast History of Lulu-en-Y gastric bypass History of tympanostomy tube placement History of sleeve gastrectomy History of laparoscopic cholecystectomy History of appendectomy History of tubal ligation Family History Father Hypertension Mother Hypertension Maternal Grandmother Leukemia Paternal Grandmother Myocardial infarction Hypertension Maternal Aunt History of breast cancer Maternal Aunt History of breast cancer Maternal Aunt History of breast cancer Paternal Aunt History of breast cancer Paternal Aunt History of breast cancer Social History Household Members: Family Housing: Apartment Are you a primary critical care physician assistant to a significant other at home: No Do you presently have visiting nurse or other home services: No Alcohol intake: never Patient Tobacco Use Status: Never used Tobacco e-Cigarette/Vaping Use: Never Used Second Hand Smoke Exposure: No service: No Current occupational status: unemployed Sexual orientation: Straight/Heterosexual Gender identity: Female Cognitive needs: No Hearing needs: No Vision needs: Yes (glasses) Female Reproductive History Menstrual Age of Menarche: 10 Questionnaire PHQ-9 Over the last 2 weeks, how often have you been bothered by any of the following problems? 1. Little interest or pleasure in doing things: not at all 2. Feeling down, depressed, or hopeless: several days (being treated) 3. Trouble falling or staying asleep, or sleeping too much: not at all 4. Feeling tired or having little energy: not at all 5. Poor appetite or overeating: not at all 6. Feeling bad about yourself - or that you are a failure or have let yourself or your family down: not at all 7. Trouble concentrating on things, such as reading the newspaper or watching television: not at all 8. Moving or speaking so slowly that other people could have noticed. Or the opposite - being so fidgety or restless that you have been moving around a lot more than usual: not at all 9. Thoughts that you would be better off or of hurting yourself in some way: not at all Total score: 1 Depression Screening Interpretation: Negative Depression Screening Done: Yes Source: Developed by Drs. Marek Calero, Chris Gross and colleagues, with an educational jeronimo from [employer]. Thrive Questionnaire Date Thrive assessed: 06/08/22 ROCHELLE-7 AMB Questionnaire ROCHELLE-7 Date ROCHELLE - 7 assessed: 06/08/22 Source: Developed by Drs. Marek Calero, Kaela Nava, Chris Mendoza and colleagues, with an educational jeronimo from [employer]. Review of Systems Const Denies chills, Denies fatigue, Denies fever(s) and Denies poor appetite Eyes Denies no additional complaints ENT Reports Normal hearing present Card Denies chest pain, Denies syncope, Denies rapid heart rate and Denies dyspnea Resp Denies cough and Denies dyspnea GI Denies change in stool character, Denies constipation, Denies diarrhea, Denies nausea and Denies vomiting Denies urinary frequency, Denies dysuria and Denies urinary urgency Neuro Reports Normal hearing present, Denies confusion and Denies syncope Psych Denies confusion Endo Denies fatigue Physical exam (Primary Care) Vital Signs: Last Vital Signs Pulse 72 01/24/23 13:18 BP 110/70 01/24/23 13:18 Pulse Ox 92 01/24/23 13:18 Oxygen Delivery Method Room Air 01/24/23 13:18 BMI result Body Mass Index 46.6 Tobacco/Smoking Status: Tobacco use Status Tobacco use date assessed 01/24/23 01/24/23 13:31 Patient Tobacco Use Status Never used Tobacco 01/24/23 13:31 e-Cigarette/Vaping Use Never Used 01/24/23 13:31 PHQ-9: PHQ-9 Score PHQ-9: Total score 1 01/24/23 13:44 Depression Screening Interpretation: Negative Thrive Assessment: Date of Thrive Assessment Date Thrive assessed 06/08/22 01/24/23 13:31 Const General: No confusion Orientation/consciousness: No confusion HENMT Head: Yes normocephalic and Yes atraumatic Eyes Conjunctivae: conjunctivae normal Chest Chest palpation & inspection: normal inspection of the chest Resp Effort & Inspection: normal respiratory effort Auscultation: clear to auscultation bilaterally, no crackles, no rhonchi and no wheezes Cardio Rate: regular rate Rhythm: regular rhythm Heart sounds: S1 normal heart sound present and S2 normal heart sound present GI Inspection: Yes normal to inspection Neuro General: No confusion Cranial nerves: Yes Normal hearing present Extrem General: No edema Office Procedures Flu Questionnaire Does the patient have a severe egg allergy?: No Does the patient have severe life threatening allergies?: No Does the patient have a fever or illness today?: No Has the patient ever had Guillain-Cushing Syndrome?: No Has the patient ever had any past reaction to a flu shot?: No Immunizations flu vacc [id number] 6mos up(PF) 60 mcg(15 mcgx4)/0.5 mL IM syringe Performing Provider: OLVIN Cramer Performing Location: [facility] Administered by: KATIE Bermudez on 01/24/23 13:31 Dose Route Admin Location Dispensed Lot Number Expiration Date NDC Behavior Interventionist 0.5 mL IM Right Deltoid 0.5 mL [id number] 10/15/23 98394-310-33 [employer] VIS Given Date VIS Provided VIS Publication Date 01/24/23 Single Vaccine 20 Eligibility Eligibility Date Funding Source Not [facility] Eligible 01/24/23 Private Assessment and Plan Assessment & Plan (1) Preop examination: Code(s): Z01.818 - Encounter for other preprocedural examination Plan: Patient advised to avoid from taking any NSAIDs or any other blood thinning medications such as aspirin. Once preop blood work reviewed an EKG an addendum will be made to this note with patient able to proceed with scheduled hysterectomy surgery. Plan Keep scheduled for a full exam PCP in May follow-up sooner needed Orders: Orders Influenza [id number] Immunization Today Z23 - Encounter for immunization Complete Blood Count Auto Diff Today Z01.812 - Encounter for preprocedural laboratory examination ECG 12 lead EKG Today Z01.818 - Encounter for other preprocedural examination Comprehensive Met. Panel Today Z01.812 - Encounter for preprocedural laboratory examination TSH reflex Free T4 Today Z01.812 - Encounter for preprocedural laboratory examination Prothrombin Time INR Today Z01.812 - Encounter for preprocedural laboratory examination Coding Level of Care Code Est Pt Level 4 (73773) Diagnoses Preop examination Z01.818
[2023-01-24 13:18] VITALS: BP 110/70; PULSE 72; O2SAT 92; BMI 46.6
== END 2023-01-24 13:58 | disposition home or self-care (01) ==
PROVIDERS: PCP Internal Medicine; Visit Provider Nurse Practitioner Family
DX: Z01.818 Encounter for other preprocedural examination (principal); Z23 Encounter for immunization; F33.1 Major depressive disorder, recurrent, moderate; E55.9 Vitamin D deficiency, unspecified
CPT/HCPCS: 90471; 90686; 99214

== ENCOUNTER 2023-01-24 14:07 | Outpatient (REF) | payer OTHER, SELFPAY ==
[2023-01-24 14:31] LABS: MANUAL DIFF FLAG NO
[2023-01-24 14:53] LABS: Basophils Absolute Auto 0.1 X10*3/uL (0.0-0.2); Basophils Percent Auto 0.5 % (0-2); Eosinophils Absolute Auto 0.3 X10*3/uL (0.0-0.4); Hemoglobin 9.9 g/dl (12.0-16.0); Imm Gran Abs Auto 0.07 X10*3/uL (0.00-0.03); Imm Gran Pct Auto 0.5 % (0.0-0.4); Lymphocytes Absolute Auto 3.2 X10*3/uL (1.2-4.9); Lymphocytes Percent Auto 24.1 % (20-40); Mean Corpuscular HGB Conc 28.3 g/dl (31.0-35.0); Mean Corpuscular Volume 67.2 fL (80.0-98.0); Mean Platelet Volume 10.7 fL (9.4-12.3); Monocytes Percent Auto 7.2 % (2-11); Neutrophils Absolute Auto 8.7 x10*3/uL (2.0-8.3); Neutrophils Percent Auto 65.7 % (45-73); Platelet Count 404 X10*3/uL (160-400); Red Blood Count 5.21 X10*6/uL (4.20-5.50); Red Cell Distribution Width 21.7 % (11.0-16.0); White Blood Count 13.2 X10*3/uL (4.8-10.8)
[2023-01-24 15:19] LABS: Alanine Aminotransferase 10 U/L (0-31); Albumin Level 4.1 g/dL (3.5-5.0); Alkaline Phosphatase 77 U/L (39-117); Anion Gap 15 (12-20); Aspartate Amino Transferase 14 U/L (5-31); Bilirubin Total 0.9 mg/dL (0.0-1.0); Blood Urea Nitrogen 18 mg/dL (9-16); Calcium 9.6 mg/dL (8.4-10.2); Carbon Dioxide 20 mmol/L (22-29); Chloride 107 mmol/L (96-108); Estimated Glomerular Filt Rate > 60; Glucose Random 92 mg/dL (60-115); Potassium 3.9 mmol/L (3.3-5.1); Sodium 138 mmol/L (135-145); Total Protein 7.8 g/dL (6.5-8.0)
[2023-01-24 15:34] LABS: TSH reflex Free T4 2.34 uIU/mL (0.32-4.0)
== END 2023-01-24 14:08 | disposition home or self-care (01) ==
LOC: HO.LAB 14:07
PROVIDERS: PCP Internal Medicine; Visit Provider Nurse Practitioner Family
DX: Z01.818 Encounter for other preprocedural examination (principal)
CPT/HCPCS: 36415; 80053; 84443; 85025; 85610; 93005

== ENCOUNTER 2023-01-29 07:43 | Emergency (ER) | payer OTHER, SELFPAY ==
--- NOTE | ~2023-01-29 | XR_ITS ---
EXAMINATION: XR SHOULDER, RIGHT CLINICAL INFORMATION: Shoulder pain COMPARISON: None available. TECHNIQUE: AP external rotation, Grashey, scapular Y, and axillary views of the right shoulder. FINDINGS: No acute fracture or dislocation. Glenohumeral and acromioclavicular alignment is anatomic with normal joint space. On the multiple images, is a 0.8 cm density projected superior to the humeral head, on the scapular Y view projected posterior to the humeral head. There is a curvilinear density extending in the superior soft tissues, with a 1 cm density projected over the superior medial soft tissues of the shoulder. These foci could be overlying the patient. XR/XR shoulder RT min 2V IMPRESSION: No acute fracture or dislocation. Densities projected over the right shoulder, including a 0.8 density projected adjacent to the humeral head,as detailed above. Question whether these foci are overlying the patient versus representing indeterminate calcification/ossification.. Clinically correlate. Consider follow-up/repeat radiographs for reassessment.
[2023-01-29 07:47] VITALS: BP 138/52; PULSE 61; RESP 16; TEMP 36.6; O2SAT 99; BMI 48.1
--- NOTE | 2023-01-29 08:48 | ED.EXTPRO ---
HPI - Extremity Problem General Chief complaint: Extremity Injury, Upper Stated complaint: R shoulder pain travels down arm Time Seen by Provider: 01/29/23 08:37 Source: patient, family and wind turbine mechanic Mode of arrival: ambulatory Limitations: no limitations History of Present Illness HPI Narrative: 42-year-old female came in complaining of right shoulder pain that started since yesterday. Patient had history of lifting heavy bags a day before then woke up next morning with right shoulder pain. Patient is holding the shoulder in adduction position with painful abduction, patient is experiencing pain on the lateral aspect of the right shoulder, no deformity, no fall, no injury, no fever, no chills, no history of similar pain in the past. No weakness, no numbness. Related Data Home Medications Medication Instructions Recorded Confirmed medroxyprogesterone 10 mg tablet mg PO 01/24/23 01/24/23 Previous Rx's Medication Instructions Recorded ferrous sulfate 325 mg (65 mg 325 mg PO TID 30 days #90 tabs 12/14/20 iron) tablet oxycodone 5 mg tablet 5 mg PO Q8H PRN pain #10 tabs 01/29/23 Allergies Allergy/AdvReac Type Severity Reaction Status Date / Time No Known Allergies Allergy Verified 01/24/23 13:54 [No Known Allergies*] Review of Systems Review of Systems: All other systems are reviewed and are negative Constitutional: Reports as per HPI and Reports no additional constitutional complaints Eyes: Reports as per HPI and Reports no additional eye complaints Reports system reviewed and no additional complaints, except as documented Cardiovascular: Reports as per HPI and Reports no additional cardiovascular complaints Respiratory: Reports as per HPI and Reports no additional respiratory complaints Gastrointestinal: Reports as per HPI and Reports no additional gastrointestinal complaints Genitourinary: Reports no additional female genitourinary complaints Musculoskeletal: Reports no additional musculoskeletal complaints Skin/Breast: Reports system reviewed and no additional complaints, except as docu Psychiatric: Reports no additional psychiatric complaints Endocrine: Reports no additional endocrine complaints Hematologic/Lymphatic: Reports no additional hematologic/lymphatic complaints Allergic/Immunologic: Reports no additional allergic/immunologic complaints Reports system reviewed and no additional complaints, except as documented and Reports Abnormal speech present [facility] Past Medical History Medical History Morbid obesity with BMI of 40.0-44.9, adult ASCUS with positive high risk HPV cervical Abnormal thyroid blood test Cervical low risk human papillomavirus (HPV) DNA test positive Moderate recurrent major depression Morbid obesity with BMI of 45.0-49.9, adult Physical exam Constipation by delayed colonic transit B12 deficiency Iron deficiency anemia Panic attacks Anxiety Depression Michael's disease Morbid obesity with BMI of 50.0-59.9, adult Lumbar radiculopathy Headache Pituitary microadenoma Anemia Surgical History History of endometrial ablation History of lumpectomy of right breast History of Lulu-en-Y gastric bypass History of tympanostomy tube placement History of sleeve gastrectomy History of laparoscopic cholecystectomy History of appendectomy History of tubal ligation Family History Family History Father Hypertension Mother Hypertension Maternal Grandmother Leukemia Paternal Grandmother Myocardial infarction Hypertension Maternal Aunt History of breast cancer Maternal Aunt History of breast cancer Maternal Aunt History of breast cancer Paternal Aunt History of breast cancer Paternal Aunt History of breast cancer Social History Social History Household Members: Family Housing: Apartment Are you a primary career development consultant to a significant other at home: No Do you presently have visiting nurse or other home services: No Alcohol intake: never Patient Tobacco Use Status: Never used Tobacco Smoked in Last 30 Days: No e-Cigarette/Vaping Use: Never Used Second Hand Smoke Exposure: No Use of substances other than those prescribed or required for medical reasons: No Advance Directives: No Advance Directives Information Provided: Yes Patient : No service: No Current occupational status: unemployed Sexual orientation: Straight/Heterosexual Gender identity: Female Cognitive needs: No Hearing needs: No Vision needs: Yes (glasses) Physical Exam Vital Signs: Vital Signs: Last Vital Signs Temp 97.9 F 01/29/23 07:47 Pulse 61 01/29/23 07:47 Resp 16 01/29/23 07:47 BP 138/52 L 01/29/23 07:47 Pulse Ox 99 01/29/23 07:47 O2 Del Method Room Air 01/29/23 07:47 BMI result Body Mass Index 48.1 Vital signs have been reviewed and appear to be correct. Blood pressure elevated. Heart rate normal. Respiratory rate normal. Temperature normal. Oxygen saturation normal. Appearance: Alert. Oriented X3. No acute distress. Head: Normal external exam. Normocephalic. Atraumatic. No Payan signs noted. No raccoon eyes noted Eyes: PERRLA. EOMI. Conjunctiva and sclera normal. Eyelids normal. ENT: TM's Normal. Pharynx normal. Uvula midline. Moist mucous membranes. No trismus noted. No drooling noted. No muffled voice noted. Neck: Normal inspection. Neck supple. FROM. No adenopathy. Thyroid Normal. No meningeal signs. No neck mass noted. CVS: Normal heart rate and rhythm. Heart sound normal. No murmurs noted. Pulses normal throughout. Respiratory: No respiratory distress. Painless inspiration. Breath sounds normal. No wheezes/rales/rhonchi noted. Chest nontender. No accessory muscle usage noted or decreased air movement noted. Abdomen: Soft and nontender. Bowel sounds normal in all 4 quadrants. No distention noted. No organomegaly noted. No visible injury noted. Back: No CVA tenderness. Full range of motion noted. Skin: Skin warm and dry. Normal skin color. Normal skin turgor. No rashes/lesions/lacerations noted. Extremities: Right shoulder held in abduction position was very painful abduction position, point of tenderness over lateral upper humerus on the greater tuberosity where the rotator cuff insert, no step-off, no deformity. Neuro: Oriented X 3. Cranial nerve exam: II-XII are grossly intact No motor deficit. No sensory deficit. Reflexes normal. Course Reevaluation(s) Reevaluation #1: Right rotator cuff tendinitis start the patient on oxycodone (patient cannot take NSAIDs cause stomach upset), heating pad, wrist, avoid heavy lifting, follow-up with Orthopedic. Time: 08:52 Medications Administered Discontinued Medications Generic Name Dose Route Start Last Admin Trade Name Freq PRN Reason Stop Dose Admin Oxycodone HCl 5 mg 01/29/23 08:47 01/29/23 09:10 Oxycodone Hcl Immed Release 5 Mg Tablet PO 01/29/23 08:48 5 mg ONCE ONE Administration Medical Decision Making Differential Diagnosis Differential Diagnoses: The differential diagnosis associated with the presentation includes (Shoulder dislocation, cervical radiculopathy, rotator cuff tendinitis, fracture.) Admission/Observation Consideration of admission/observation: Escalation of care including admission/observation considered Independent Interpretation I performed an independent interpretation of an: Plain X-Ray (Right shoulder: No acute fracture, no dislocation.) Radiology Impression Discussion of test interpretation with radiology: I have reviewed the radiologist's reading. (No acute fracture or dislocation. Densities projected over the right shoulder, including a 0.8 density projected adjacent to the humeral head,as detailed above. Question whether these foci are overlying the patient versus representing indeterminate calcification/ossification.. Clinically correlate) Discharge Plan Discharge Clinical Impression: Right rotator cuff tendinitis Patient Disposition: Home, Self-Care Instructions: Rotator Cuff Tendinitis (ED) Prescriptions: New oxycodone 5 mg tablet 5 mg PO Q8H PRN (Reason: pain) Qty: 10 0RF Rx Instructions: Partial Fill upon patient request. No Action ferrous sulfate 325 mg (65 mg iron) tablet 325 mg PO TID 30 Days Qty: 90 6RF medroxyprogesterone 10 mg tablet PO Referrals: Ernie Blank MD [Physician] -
[2023-01-29] MEDS: oxyCODONE HCl Immed Release 5 MG TABLET PO (09:10)
[2023-01-29 10:14] VITALS: BP 112/55; PULSE 56; RESP 16; TEMP 35.9; O2SAT 95
== END 2023-01-29 10:39 | disposition home or self-care (01) ==
PROVIDERS: Emergency Provider Emergency Medicine; PCP Internal Medicine
DX: M65.221 Calcific tendinitis, right upper arm (principal); M25.511 Pain in right shoulder
CPT/HCPCS: 73030; 99283; 99284

== ENCOUNTER 2023-06-14 17:17 | Outpatient (AMB) | payer OTHER, SELFPAY ==
[2023-06-14 17:19] VITALS: BP 118/72; BMI 50.3
--- NOTE | 2023-06-14 17:19 | A.OFFPC_ITS ---
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 Required: No Accompanied by: Self / Same As Patient Allergies No Known Allergies [No Known Allergies*] Allergy (Verified 06/14/23 17:42) Medication List - Last Reconciled 06/14/23 by Ila Borden MD ferrous sulfate 325 mg PO TID 30 days medroxyprogesterone mg PO Tobacco use date assessed: 06/14/23 Dental Screening Dental Screen Date: 06/14/23 Did you have a dental visit in the last 12 months?: Yes Did you have a dental problem in the last 6 months where you did not have access to dental care?: No Was dental information given to patient?: Patient has dentist HPI HPI Comments History of Present Illness Details This is a 41-year-old female with mild major depression and obesity with BMI of 50.3 that comes for her physical exam. Depression is treated with counseling once a week. She is obese and was advised to diet and exercise. Last mammogram was 2022. Last Pap smear 2022. Had a hysterectomy due to benign reasons. No acute complaints. [facility] Medical History (Updated 06/14/23 @ 17:54 by Ila Borden MD) Morbid obesity with BMI of 40.0-44.9, adult ASCUS with positive high risk HPV cervical Abnormal thyroid blood test Cervical low risk human papillomavirus (HPV) DNA test positive Moderate recurrent major depression Morbid obesity with BMI of 45.0-49.9, adult Physical exam Constipation by delayed colonic transit B12 deficiency Iron deficiency anemia Panic attacks Anxiety Depression Michael's disease Morbid obesity with BMI of 50.0-59.9, adult Lumbar radiculopathy Headache Pituitary microadenoma Anemia Surgical History History of hysterectomy History of endometrial ablation History of lumpectomy of right breast History of Lulu-en-Y gastric bypass History of tympanostomy tube placement History of sleeve gastrectomy History of laparoscopic cholecystectomy History of appendectomy History of tubal ligation Family History Father Hypertension Mother Hypertension Maternal Grandmother Leukemia Paternal Grandmother Myocardial infarction Hypertension Maternal Aunt History of breast cancer Maternal Aunt History of breast cancer Maternal Aunt History of breast cancer Paternal Aunt History of breast cancer Paternal Aunt History of breast cancer Social History (Updated 06/14/23 @ 17:44 by Ila Borden MD) Household Members: Family Housing: Apartment Are you a primary careers counsellor to a significant other at home: No Do you presently have visiting nurse or other home services: No Alcohol intake: current Alcohol intake frequency: holidays/special occasions only Alcohol type: hard liquor Patient Tobacco Use Status: Never used Tobacco e-Cigarette/Vaping Use: Never Used Second Hand Smoke Exposure: No service: No Current occupational status: unemployed Sexual orientation: Straight/Heterosexual Gender identity: Female Cognitive needs: No Hearing needs: No Vision needs: Yes (glasses) Female Reproductive History Menstrual Age of Menarche: 10 Questionnaire PHQ-9 Over the last 2 weeks, how often have you been bothered by any of the following problems? 1. Little interest or pleasure in doing things: several days 2. Feeling down, depressed, or hopeless: not at all 3. Trouble falling or staying asleep, or sleeping too much: nearly every day 4. Feeling tired or having little energy: not at all 5. Poor appetite or overeating: nearly every day 6. Feeling bad about yourself - or that you are a failure or have let yourself or your family down: not at all 7. Trouble concentrating on things, such as reading the newspaper or watching television: not at all 8. Moving or speaking so slowly that other people could have noticed. Or the opposite - being so fidgety or restless that you have been moving around a lot more than usual: not at all 9. Thoughts that you would be better off or of hurting yourself in some way: not at all Total score: 7 Depression Screening Interpretation: Positive Depression Screening Follow-up: Existing condition and Community Mental Health Worker F/U Depression Screening Done: Yes 80914 - PHQ-9 Billing: Yes Source: Developed by Drs. Marek Calero, Kaela Nava, Chris Mendoza and colleagues, with an educational jeronimo from [employer]. Thrive Questionnaire Date Thrive assessed: 06/14/23 I am a: Patient What is your living situation today?: I have a steady place to live Within the past 12 months, did the food you bought not last and you didn't have the money to get more?: Never true Within the past 12 months, did you worry whether your food would run out before you got money to buy more?: Never true Do you have trouble paying for medicines?: No Do you have trouble getting transportation to medical appointments?: No Do you have trouble paying your heating and electricity bill?: No Do you have trouble taking care of your child, family member or friend?: No Do you have trouble with day-to-day activities such as bathing, preparing meals, shopping, managing finances, etc.?: No Are you currently unemployed and looking for a job?: No Are you interested in more education?: No Please select the resources that you would like help with: None Currently or been in a relationship where the following occur: no concerns reported THRIVE Score: 0 AUDIT C Alcohol Use Questionnaire (AUDIT-C) 1. How often do you have a drink containing alcohol?: Monthly or less 2. How many drinks containing alcohol do you have on a typical day when you are drinking?: 1 or 2 3. How often do you have six or more drinks on one occasion?: Never Total Score: 1 ROCHELLE-7 AMB Questionnaire ROCHELLE-7 Date ROCHELLE - 7 assessed: 06/14/23 Feeling nervous, anxious, or on edge: 2 = More than half the days Not being able to stop or control worryin = Several days Worrying too much about different things: 3 = Nearly every day Trouble relaxin = Nearly every day Being so restless that it is hard to sit still: 2 = More than half the days Becoming easily annoyed or irritable: 3 = Nearly every day Feeling afraid as if something awful might happen: 0 = Not at all Total ROCHELLE-7 score (0-4 normal; 5-9 mild; 10-14 moderate; 15-21 severe): 14 Source: Developed by Drs. Marek Calero, Kaela Nava, Chris Mendoza and colleagues, with an educational jeronimo from [email or web address] ROCHELLE-7 Assessment Billing ROCHELLE-7 Assessment Tool: ROCHELLE-7 Assessment 03060 Review of Systems Const All systems reviewed & are unremarkable except as noted in HPI and below Eyes Reports no additional complaints, Denies change in vision and Denies other visual disturbances Card Denies chest pain at rest, Denies chest pain with activity, Denies edema, Denies irregular heart rhythm, Denies claudication, Denies dyspnea, Denies dyspnea on exertion, Denies orthopnea, Denies paroxysmal nocturnal dyspnea and Denies slow heart rate Resp Denies cough, Denies dyspnea and Denies dyspnea on exertion GI Denies abdominal pain, Denies change in bowel habits, Denies excessive flatus, Denies nausea and Denies vomiting Denies urinary incontinence, Denies urinary hesitancy and Denies urinary urgency Musc Denies abnormal gait, Denies atrophy, Denies deformity and Denies limited range of motion Skin/Breast Denies bleeding lesions, Denies changing lesions and Denies rash Neuro Denies abnormal gait, Denies behavioral changes, Denies confusion and Denies l ack of coordination Psych Denies behavioral changes and Denies confusion Physical exam (Primary Care) Vital Signs: Last Vital Signs BP 118/72 06/14/23 17:19 BMI result Body Mass Index 50.3 Tobacco/Smoking Status: Tobacco use Status Tobacco use date assessed 06/14/23 06/14/23 17:30 Patient Tobacco Use Status Never used Tobacco 06/14/23 17:30 e-Cigarette/Vaping Use Never Used 06/14/23 17:30 PHQ-9: PHQ-9 Score PHQ-9: Total score 7 06/14/23 17:30 Depression Screening Interpretation: Positive Depression Screening Follow-up: Existing condition and Community Mental Health Worker F/U Thrive Assessment: Date of Thrive Assessment Date Thrive assessed 06/14/23 06/14/23 17:30 Currently or been in a relationship where the following occur: no concerns reported Const General: No confusion Orientation/consciousness: patient oriented x3 and No confusion HENMT Head: Yes normal to inspection, Yes normocephalic and Yes atraumatic Ears: external ears normal Eyes General: appearance normal, both eyes and all related structures Eyelids: Yes eyelids normal Conjunctivae: conjunctivae normal Neck Neck: Yes normal visual inspection and Yes supple Resp Effort & Inspection: normal respiratory effort Auscultation: clear to auscultation bilaterally Cardio Jugular venous distension: no JVD Rate: regular rate Rhythm: regular rhythm Heart sounds: S1 normal heart sound present and S2 normal heart sound present GI Inspection: Yes normal to inspection Palpation (GI): Soft to palpation and nontender Auscultation: normal bowel sounds Skin General skin exam: no rashes or lesions noted Neuro General: patient oriented x3, no focal motor deficits and No confusion Extrem General: Yes full ROM Psych Appearance: grossly normal Assessment and Plan Assessment & Plan (1) Physical exam: Code(s): Z00.00 - Encounter for general adult medical examination without abnormal findings Plan: Repeat in a year. (2) Mild major depression: Code(s): F32.0 - Major depressive disorder, single episode, mild Plan: Continue counseling once a week. (3) BMI 50.0-59.9, adult: Code(s): Z68.43 - Body mass index [BMI] 50.0-59.9, adult Plan: Start diet and exercise. BMI goal is less than 30. Orders: Orders Vitamin D 25-OH Total Today E55.9 - Vitamin D deficiency, unspecified Lipid Panel Today Z00.00 - Encounter for general adult medical examination with out abnormal findings Comprehensive [place]. Panel Fast Today Z00.00 - Encounter for general adult medical examination without abnormal findings Complete Blood Count Auto Diff Today D64.9 - Anemia, unspecified IRON PROFILE Today D64.9 - Anemia, unspecified Vitamin B12 and Folate Today E53.8 - Deficiency of other specified B group vitamins T Spot TB Today Z11.1 - Encounter for screening for respiratory tuberculosis Coding Level of Care Code Est Pt Prev Care 40-64y(59989) Diagnoses Physical exam Z00.00 Mild major depression F32.0 BMI 50.0-59.9, adult Z68.43 Additional Codes ROCHELLE-7 Assessment Billing - ROCHELLE-7 Assessment Tool: ROCHELLE-7 Assessment 57683 ([id number]) Time Spent (min) 31
== END 2023-06-14 17:48 | disposition home or self-care (01) ==
LOC: HO.HMGH 17:17
PROVIDERS: PCP Internal Medicine; Visit Provider Internal Medicine
DX: Z00.00 Encounter for general adult medical examination without abnormal findings (principal); F32.0 Major depressive disorder, single episode, mild; Z68.43 Body mass index [BMI] 50.0-59.9, adult; E66.01 Morbid (severe) obesity due to excess calories
CPT/HCPCS: 99396

== ENCOUNTER 2023-06-19 07:39 | Outpatient (REF) | payer OTHER, SELFPAY ==
[2023-06-19 07:52] LABS: MANUAL DIFF FLAG NO
[2023-06-19 08:08] LABS: Basophils Absolute Auto 0.1 X10*3/uL (0.0-0.2); Basophils Percent Auto 0.8 % (0-2); Eosinophils Absolute Auto 0.4 X10*3/uL (0.0-0.4); Eosinophils Percent Auto 3.3 % (0-4); Hematocrit 34.8 % (37.0-47.0); Hemoglobin 9.9 g/dl (12.0-16.0); Imm Gran Abs Auto 0.03 X10*3/uL (0.00-0.03); Imm Gran Pct Auto 0.3 % (0.0-0.4); Lymphocytes Absolute Auto 3.5 X10*3/uL (1.2-4.9); Mean Corpuscular HGB Conc 28.4 g/dl (31.0-35.0); Mean Corpuscular Hemoglobin 19.3 pg (27.0-33.0); Mean Platelet Volume 10.5 fL (9.4-12.3); Monocytes Absolute Auto 1.1 X10*3/uL (0.1-1.2); Monocytes Percent Auto 10.5 % (2-11); Neutrophils Absolute Auto 5.5 x10*3/uL (2.0-8.3); Neutrophils Percent Auto 52.1 % (45-73); Platelet Count 446 X10*3/uL (160-400); Red Blood Count 5.12 X10*6/uL (4.20-5.50); Red Cell Distribution Width 19.7 % (11.0-16.0); White Blood Count 10.5 X10*3/uL (4.8-10.8)
[2023-06-19 08:45] LABS: Alanine Aminotransferase 11 U/L (0-31); Albumin Level 3.8 g/dL (3.5-5.0); Alkaline Phosphatase 83 U/L (39-117); Anion Gap 14 (12-20); Aspartate Amino Transferase 14 U/L (5-31); Bilirubin Total 1.2 mg/dL (0.0-1.0); Blood Urea Nitrogen 17 mg/dL (9-16); Calcium 9.1 mg/dL (8.4-10.2); Carbon Dioxide 24 mmol/L (22-29); Chloride 105 mmol/L (96-108); Cholesterol 174 mg/dL (<200); Estimated Glomerular Filt Rate > 60; Glucose Fasting 86 mg/dL (60-99); HDL Cholesterol 50 mg/dL (>40); Iron 26 mcg/dL (30-160); LDL Cholesterol Calculated 95 mg/dL (<100); Percent Iron Saturation 6 % (15-50); Potassium 3.6 mmol/L (3.3-5.1); Sodium 139 mmol/L (135-145); Total Iron Binding Capacity 414 mcg/dL (228-428); Total Protein 7.3 g/dL (6.5-8.0); Triglycerides 145 mg/dL (<150); Unsaturated Iron Binding 388 ug/dL
[2023-06-19 09:08] LABS: Vitamin D 25-OH Total 20.7 ng/mL (>30)
[2023-06-19 09:15] LABS: Folate 12.5 ng/mL (> or = 4.0); Vitamin B12 482 pg/mL (200-900)
[2023-06-22 00:28] LABS: TS Negative Control Passed; TS Panel A 0; TS Panel B 1; TS Positive Control Passed; TSpotTB Negative (Negative)
== END 2023-06-19 07:40 | disposition home or self-care (01) ==
LOC: HO.LAB 07:39
PROVIDERS: PCP Internal Medicine; Visit Provider Internal Medicine
DX: Z00.00 Encounter for general adult medical examination without abnormal findings (principal); E55.9 Vitamin D deficiency, unspecified; E53.8 Deficiency of other specified B group vitamins; D64.9 Anemia, unspecified; Z11.1 Encounter for screening for respiratory tuberculosis
CPT/HCPCS: 36415; 80053; 80061; 82306; 82607; 82746; 83540; 85025; 86481

== ENCOUNTER 2023-06-20 15:07 | Outpatient (AMB) | payer OTHER, SELFPAY ==
--- NOTE | 2023-06-20 15:12 | MHC.OFFVIS ---
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 No complaints. Last Pap/HPV was negative in 07/06 , the patient is status post hysterectomy Last Mammogram was BI-RADS 1 in 07/[facility] Medical History Morbid obesity with BMI of 40.0-44.9, adult ASCUS with positive high risk HPV cervical Abnormal thyroid blood test Cervical low risk human papillomavirus (HPV) DNA test positive Moderate recurrent major depression Morbid obesity with BMI of 45.0-49.9, adult Physical exam Constipation by delayed colonic transit B12 deficiency Iron deficiency anemia Panic attacks Anxiety Depression Michael's disease Morbid obesity with BMI of 50.0-59.9, adult Lumbar radiculopathy Headache Pituitary microadenoma Anemia Surgical History History of hysterectomy History of endometrial ablation History of lumpectomy of right breast History of Lulu-en-Y gastric bypass History of tympanostomy tube placement History of sleeve gastrectomy History of laparoscopic cholecystectomy History of appendectomy History of tubal ligation Family History Father Hypertension Mother Hypertension Maternal Grandmother Leukemia Paternal Grandmother Myocardial infarction Hypertension Maternal Aunt History of breast cancer Maternal Aunt History of breast cancer Maternal Aunt History of breast cancer Paternal Aunt History of breast cancer Paternal Aunt History of breast cancer Social History Household Members: Family Housing: Apartment Are you a primary healthcare insurance sales agent to a significant other at home: No Do you presently have visiting nurse or other home services: No Alcohol intake: current Alcohol intake frequency: holidays/special occasions only Alcohol type: hard liquor Patient Tobacco Use Status: Never used Tobacco e-Cigarette/Vaping Use: Never Used Second Hand Smoke Exposure: No Patient : No service: No Current occupational status: unemployed Sexual orientation: Straight/Heterosexual Gender identity: Female Cognitive needs: No Hearing needs: No Vision needs: Yes (glasses) Female Reproductive History Menstrual Age of Menarche: 10 control method: permanent sterilization Total pregnancies: 4 Full term: 4 Number of Living Children: 4 Date of last pap smear: 06/16/22 (negative) History of abnormal pap smear: Yes (ASCUS 2021) Date of Mammogram: 06/30/22 Review of Systems Const All systems reviewed & are unremarkable except as noted in HPI and below Card Reports as per HPI Resp Reports as per HPI GI Reports as per HPI and Reports no additional complaints Reports as per HPI Physical Exam Vital Signs: Last Vital Signs BP 118/70 06/20/23 15:13 BMI result Body Mass Index 50.8 Const General: cooperative, healthy appearing and comfortable Chest Chest palpation & inspection: normal inspection of the chest and normal palpation of entire chest wall Breast/axilla inspection: normal inspection of the breasts and normal inspection of the axillae Breast/axilla palpation: normal palpation of the breasts, normal palpation of the axillae and no axillary lymphadenopathy Resp Effort & Inspection: normal respiratory effort Auscultation: clear to auscultation bilaterally Percussion: percussion normal Cardio Palpation: normal PMI Rate: regular rate Rhythm: regular rhythm Heart sounds: no murmurs and no rubs Peripheral pulses: Peripheral pulses 2+ throughout GI Inspection: Yes normal to inspection Palpation (GI): Soft to palpation, nontender, no guarding, not rigid and No hepatosplenomegaly present Percussion: Yes normal to percussion Auscultation: normal bowel sounds Rectal Exam - Female: deferred External Female Exam: No lesion Speculum Exam - Vagina: normal appearance of the vagina, normal vaginal discharge and not erythematous Speculum Exam - Cervix: normal appearance of the cervix Bimanual exam- vagina & uterus: uterus absent Bimanual Exam- Adnexa, other: normal adnexae and no tenderness Assessment & Plan Assessment & Plan (1) Well woman exam: Code(s): Z01.419 - Encounter for gynecological examination (general) (routine) without abnormal findings Plan: Cotesting not indicated since the patient is status post hysterectomy is no history of severe dysplasia. Mammogram ordered. Counseled the patient about the recommended dietary allowance of 1000 mg of Calcium & 600 IU of vitamin D. The patient was instructed to perform monthly self-breast exams and to schedule an annual exam in a year; All questions answered and the patient verbalized understanding. Instructed the patient to schedule annual exam in a year Orders: Orders MM tomosynthesis screening BI Today Z12.31 - Encounter for screening mammogram for malignant neoplasm of breast Coding Level of Care Code Est Pt Prev Care 40-64y(50349) Diagnoses Well woman exam Z01.419
[2023-06-20 15:13] VITALS: BP 118/70; BMI 50.8
== END 2023-06-20 15:42 | disposition home or self-care (01) ==
LOC: HO.HWS 15:08
PROVIDERS: PCP Internal Medicine; Visit Provider Obstetrics & Gynecology
DX: Z01.419 Encounter for gynecological examination (general) (routine) without abnormal findings (principal)
CPT/HCPCS: 99396

== ENCOUNTER → 2023-06-20 15:07 | Outpatient (BNVA) | payer OTHER, SELFPAY | PROVIDERS: PCP Internal Medicine; Visit Provider Obstetrics & Gynecology | DX: Z01.419 Encounter for gynecological examination (general) (routine) without abnormal findings (principal) | CPT/HCPCS: 99396 ==

== ENCOUNTER 2024-09-26 15:26 | Outpatient (AMB) | payer OTHER, SELFPAY ==
--- NOTE | 2024-09-26 15:34 | A.OFFVIS_ITS ---
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 No complaints. Last Pap/HPV was negative in 07/07 , the patient is status post hysterectomy Last Mammogram was BI-RADS 1 in 07/07 The patient has an elevated TZ lifetime breast cancer risk [facility] Medical History (Updated 09/26/24 @ 15:43 by Shaka Wharton MD) Morbid obesity with BMI of 40.0-44.9, adult ASCUS with positive high risk HPV cervical Abnormal thyroid blood test Cervical low risk human papillomavirus (HPV) DNA test positive Moderate recurrent major depression Morbid obesity with BMI of 45.0-49.9, adult Physical exam Constipation by delayed colonic transit B12 deficiency Iron deficiency anemia Panic attacks Anxiety Depression Michael's disease Morbid obesity with BMI of 50.0-59.9, adult Lumbar radiculopathy Headache Pituitary microadenoma Anemia Surgical History (Updated 09/26/24 @ 15:54 by Shaka Wharton MD) History of hysterectomy History of endometrial ablation History of lumpectomy of right breast History of Lulu-en-Y gastric bypass History of tympanostomy tube placement History of sleeve gastrectomy History of laparoscopic cholecystectomy History of appendectomy History of tubal ligation Family History Father Hypertension Mother Hypertension Maternal Grandmother Leukemia Paternal Grandmother Myocardial infarction Hypertension Maternal Aunt History of breast cancer Maternal Aunt History of breast cancer Maternal Aunt History of breast cancer Paternal Aunt History of breast cancer Paternal Aunt History of breast cancer Social History Household Members: Family Housing: Apartment Are you a primary health care / medical job titles to a significant other at home: No Do you presently have visiting nurse or other home services: No Alcohol intake: current Alcohol intake frequency: holidays/special occasions only Alcohol type: hard liquor Patient Tobacco Use Status: Never used Tobacco e-Cigarette/Vaping Use: Never Used Second Hand Smoke Exposure: No service: No Current occupational status: unemployed Sexual orientation: Straight/Heterosexual Gender identity: Female Cognitive needs: No Hearing needs: No Vision needs: Yes (glasses) Female Reproductive History Menstrual Age of Menarche: 10 Menopause type: surgical Date of Mammogram: 06/30/22 Review of Systems Const All systems reviewed & are unremarkable except as noted in HPI and below Card Reports as per HPI Resp Reports as per HPI GI Reports as per HPI and Reports no additional complaints Reports as per HPI Physical Exam Const General: cooperative, healthy appearing and comfortable Chest Chest palpation & inspection: normal inspection of the chest and normal palpation of entire chest wall Breast/axilla inspection: normal inspection of the breasts and normal inspection of the axillae Breast/axilla palpation: normal palpation of the breasts, normal palpation of the axillae and no axillary lymphadenopathy Resp Effort & Inspection: normal respiratory effort Auscultation: clear to auscultation bilaterally Percussion: percussion normal Cardio Palpation: normal PMI Rate: regular rate Rhythm: regular rhythm Heart sounds: no murmurs and no rubs Peripheral pulses: Peripheral pulses 2+ throughout GI Inspection: Yes normal to inspection Palpation (GI): Soft to palpation, nontender, no guarding, not rigid and No hepatosplenomegaly present Percussion: Yes normal to percussion Auscultation: normal bowel sounds Rectal Exam - Female: deferred External Female Exam: normal external appearance Speculum Exam - Vagina: normal appearance of the vagina, normal palpation and normal vaginal discharge Speculum Exam - Cervix: Cervix absent Bimanual exam- vagina & uterus: normal bimanual exam, normal palpation and uterus absent Bimanual Exam- Adnexa, other: normal adnexae, no masses and no tenderness Assessment & Plan Assessment & Plan (1) At high risk for breast cancer: Code(s): Z91.89 - Other specified personal risk factors, not elsewhere classified Category: Medical Plan: Discussed with the patient her increased risk for Breast ca. The lifetime risk of breast cancer based on the Tyrer-Cuzick Model Recommended Intensification of breast Cancer screening with annual MRI breast in addition to annual mammogram and MRI alternating every 6 months. Mammogram and Breast MRI ordered since last breast imaging were 2 years ago Will refer to Dr Holland for possible Genetic Ca counseling and possible testing, in addition to counseling regarding Chemoprevention strategies All questions answered, the patient verbalized understanding and agreed with the plan (2) Well woman exam: Comment: ASCUS HPV positive in 2021 followed by negative co testing in 2022 Code(s): Z01.419 - Encounter for gynecological examination (general) (routine) without abnormal findings Category: Medical Plan: Cotesting not indicated this year, recommended co testing in 2025. Mammogram ordered/MRI of breast ordered. Counseled the patient about the recommended dietary allowance of 1000 mg of Calcium & 600 IU of vitamin D. The patient was instructed to perform monthly self-breast exams and to schedule an annual exam in a year; All questions answered and the patient verbalized understanding. Instructed the patient to schedule annual exam in a year Orders: Orders MR breast BI wo/w con Today Z80.3 - Family history of malignant neoplasm of breast MM tomosynthesis diagnostic BI Today Z91.89 - Other specified personal risk factors, not elsewhere classified Referrals General Surgery Referral Z91.89 - Other specified personal risk factors, not elsewhere classified Coding Level of Care Code Est Pt Prev Care 40-64y(92502) Diagnoses At high risk for breast cancer Z91.89 Well woman exam Z01.419
[2024-09-26 15:45] VITALS: BP 110/76; BMI 52.9
== END 2024-09-26 15:52 | disposition home or self-care (01) ==
LOC: HO.HWS 15:26
PROVIDERS: PCP Internal Medicine; Visit Provider Obstetrics & Gynecology
DX: Z01.419 Encounter for gynecological examination (general) (routine) without abnormal findings (principal); Z91.89 Other specified personal risk factors, not elsewhere classified
CPT/HCPCS: 99396; 99459

== ENCOUNTER → 2024-09-26 15:26 | Outpatient (BNVA) | payer OTHER, SELFPAY | PROVIDERS: PCP Internal Medicine; Visit Provider Obstetrics & Gynecology | DX: Z01.419 Encounter for gynecological examination (general) (routine) without abnormal findings (principal) | CPT/HCPCS: 99396; 99459 ==

== ENCOUNTER → 2024-10-10 08:21 | Outpatient (BNV) | payer OTHER, SELFPAY | PROVIDERS: PCP Internal Medicine; Visit Provider Internal Medicine | DX: Z80.3 Family history of malignant neoplasm of breast (principal) | CPT/HCPCS: 77049 ==

== ENCOUNTER 2024-10-10 08:22 | Outpatient (REF) | payer OTHER, SELFPAY ==
--- NOTE | ~2024-10-10 | MR_ITS ---
EXAMINATION: MR BREAST WITHOUT AND WITH CONTRAST, BILATERAL CLINICAL INFORMATION: High risk screening. Strong family history of breast cancer. COMPARISON: Comparison is made with relevant prior imaging. TECHNIQUE: MR imaging of the breasts was performed using T1, T2 and fat saturated techniques. Dynamic multiphase imaging was also performed after administration of intravenous gadolinium contrast agent. Computer generated 3D reconstruction and enhancement kinetic analysis was utilized by the radiologist in the interpretation of this examination. FINDINGS: Breast composition: There are scattered fibronodular breast tissue with mild background enhancement. LEFT BREAST: No suspicious enhancing masses or areas of non mass enhancement. No axillary or internal mammary adenopathy. RIGHT BREAST: No suspicious enhancing masses or areas of non mass enhancement. No axillary or internal mammary adenopathy. Limited views of the chest and abdomen are unremarkable. MR/MR breast BI wo/w con IMPRESSION: No MR specific evidence of malignancy. ASSESSMENT: LEFT BREAST: BI-RADS 1 negative. RIGHT BREAST: BI-RADS 1-Negative RECOMMENDATIONS: Yearly screening mammography Yearly Breast MRI screening surveillance. Electronically signed by: Maribel Elliott DO 10/10/2024 11:27 AM EDT
[2024-10-10] MEDS: gadobutroL 10 ML VIAL IVPUSH (09:51)
== END 2024-10-10 08:23 | disposition home or self-care (01) ==
LOC: HO.MRI 08:22
PROVIDERS: PCP Internal Medicine; Visit Provider Obstetrics & Gynecology
DX: Z12.39 Encounter for other screening for malignant neoplasm of breast (principal); Z80.3 Family history of malignant neoplasm of breast
CPT/HCPCS: 77049; A9585

== ENCOUNTER 2024-10-24 16:12 | Emergency (ER) | payer OTHER, SELFPAY ==
--- NOTE | ~2024-10-24 | XR_ITS ---
CLINICAL HISTORY: pain Radiographs of the right knee, 4 views Comparison: None available Findings: There is no fracture or dislocation. No joint space narrowing or osteophytosis. Bone mineralization is normal. No knee joint effusion. Soft tissue swelling. Impression: No fracture or joint effusion. This document has been electronically signed by: Neris Hernandez MD on 10/24/2024 18:14:09
--- NOTE | ~2024-10-24 | XR_ITS ---
CLINICAL HISTORY: pain Radiographs of the right ankle, 3 views Comparison: None available Findings: There is no fracture or dislocation. The ankle mortise is congruent. Moderate degenerative change in the midfoot. Calcaneal spur. Enthesophyte at the insertion of the Achilles tendon. Bone mineralization is normal. Soft tissue swelling. Impression: No fracture. This document has been electronically signed by: Neris Hernandez MD on 10/24/2024 18:13:21
[2024-10-24 16:15] VITALS: BP 124/53; PULSE 74; RESP 16; TEMP 35.5; O2SAT 97; BMI 52.5
[2024-10-24 17:47] VITALS: BP 119/59; PULSE 85; RESP 18; TEMP 36.9; O2SAT 99
--- NOTE | 2024-10-24 17:57 | PC.NURSE ---
44 F presents to ED d/t R ankle and R knee pain 9 since slipping on her small dogs and falling 5-6 days ago and feeling like something broke. Pt sts she has had R ankle and knee pain from a fall a few months ago, has gotten worse since the last fall. RR even and unlabored, denies SOB or chest pain. Pt denies any other complaints. A+OX4 and normally ambulates.
--- NOTE | 2024-10-24 18:29 | ED.EXTPRO ---
HPI - Extremity Problem General Chief complaint: Extremity Problem Stated complaint: right leg pain Time Seen by Provider: 10/24/24 18:00 Source: patient, RN notes reviewed, old records reviewed and manager performance Mode of arrival: ambulatory Limitations: language barrier History of Present Illness ED Provider: Aubrey HPI Narrative: 44-year-old female with a past medical history significant for morbid obesity, depression, iron-deficiency anemia, Michael's thyroiditis, lumbar radiculopathy presents for evaluation of right knee pain and ankle pain. Patient reports that she fell 1 month ago and then slipped again 1 week ago. She has had pain to her entire right knee worsening over the last week. She is able to bear weight and ambulate but reports that she walks slowly She has no calf pain, denies any recent travel. She also complains of right ankle pain on the same side Denies any fevers, chills. She reports she hears a clicking sound in her right knee with walking Related Data Previous Rx's ?Medication ?Instructions ?Recorded ferrous sulfate 325 mg (65 mg 325 mg PO DAILY 30 days #30 tabs 06/19/23 iron) tablet cholecalciferol (vitamin D3) 25 25 mcg PO DAILY 90 days #90 caps 12/12/23 mcg (1,000 unit) capsule naproxen 500 mg tablet 500 mg PO BID PRN pain #20 tabs 10/24/24 Allergies Allergy/AdvReac Type Severity Reaction Status Date / Time No Known Allergies (No Known Allergy Verified 10/24/24 16:16 Allergies*) Review of Systems Constitutional: Constitutional: Denies body ache(s), Denies chills and Denies fever(s) Eyes: Eyes: Denies blurry vision and Denies irritation ENT: Denies dizziness, Denies dry mouth and Denies ear discharge Cardiovascular: Cardiovascular: Denies chest pain Gastrointestinal: Gastrointestinal: Denies abdominal pain, Denies nausea and Denies vomiting Musculoskeletal: Musculoskeletal: Reports arthralgias, Reports joint swelling and Reports limited range of motion Neurologic: Denies dizziness PMFSH Past Medical History Medical History (Updated 10/24/24 @ 18:34 by Jak Burgos) Morbid obesity with BMI of 40.0-44.9, adult ASCUS with positive high risk HPV cervical Abnormal thyroid blood test Cervical low risk human papillomavirus (HPV) DNA test positive Moderate recurrent major depression Morbid obesity with BMI of 45.0-49.9, adult Physical exam Constipation by delayed colonic transit B12 deficiency Iron deficiency anemia Panic attacks Anxiety Depression Michael's disease Morbid obesity with BMI of 50.0-59.9, adult Lumbar radiculopathy Headache Pituitary microadenoma Anemia Surgical History (Updated 09/26/24 @ 15:54 by Shaka Wharton MD) History of hysterectomy History of endometrial ablation History of lumpectomy of right breast History of Lulu-en-Y gastric bypass History of tympanostomy tube placement History of sleeve gastrectomy History of laparoscopic cholecystectomy History of appendectomy History of tubal ligation Family History Family History Father Hypertension Mother Hypertension Maternal Grandmother Leukemia Paternal Grandmother Myocardial infarction Hypertension Maternal Aunt History of breast cancer Maternal Aunt History of breast cancer Maternal Aunt History of breast cancer Paternal Aunt History of breast cancer Paternal Aunt History of breast cancer Social History Social History Household Members: Family Housing: Apartment Are you a primary healthcare insurance sales agent to a significant other at home: No Do you presently have visiting nurse or other home services: No Alcohol intake: current Alcohol intake frequency: holidays/special occasions only Alcohol type: hard liquor Patient Tobacco Use Status: Never used Tobacco Smoked in Last 30 Days: No e-Cigarette/Vaping Use: Never Used Second Hand Smoke Exposure: No Use of substances other than those prescribed or required for medical reasons: No Advance Directives: No Advance Directives Information Provided: Yes Do you have a plan to hurt others: No Plan Patient : No service: No Current occupational status: unemployed Sexual orientation: Straight/Heterosexual Gender identity: Female Cognitive needs: No Hearing needs: No Vision needs: Yes (glasses) Physical Exam Vital Signs: Vital Signs: Last Vital Signs Temp 98.4 F 10/24/24 17:47 Pulse 85 10/24/24 17:47 Resp 18 10/24/24 17:47 BP 119/59 L 10/24/24 17:47 Pulse Ox 99 10/24/24 17:47 O2 Del Method Room Air 10/24/24 17:47 BMI result Body Mass Index 52.5 Const: General: healthy appearing, comfortable, no acute distress, alert and awake Nutritional Appearance: well nourished and obese Orientation/consciousness: patient oriented x3 HEENT: Head: Yes normocephalic and Yes atraumatic Eyes: Eyelids: Yes eyelids normal Conjunctivae: conjunctivae normal Sclerae: sclerae normal Corneas: corneas normal Pupils: Equal, round and reactive pupils present EOM: EOMs intact bilaterally Neck: Neck: Yes full ROM Resp: Effort & Inspection: normal respiratory effort, able to speak in complete sentences and not labored GI: Inspection: No distended Palpation (GI): Soft to palpation, not firm, nontender, no guarding and not rigid Skin: General skin exam: elasticity normal Neuro: General: patient oriented x3 Cranial nerves: Yes Equal, round and reactive pupils present and Yes Bilaterally intact EOM present Cognition (Neuro): normal cognition Extrem: Other: Palpation of the right knee is somewhat limited due to body habitus. The patient is globally tender to the right knee. There was no palpable deformities. She has full range of motion with flexion-extension of the right knee. No calf tenderness. There was no tenderness over the Achilles. She does have some mild right lateral ankle tenderness without deformity. Medical Decision Making Medical Decision Making MDM Narrative: 44-year-old female with a past medical history as above presents for evaluation of right knee and ankle pain. She reports that she fell 1 month ago and then again 1 week ago she got tripped by her dog causing the fall. She reports a clicking sensation in her knee when walking. On exam she has no obvious deformities. She has good range of motion she is able to bear weight and ambulate without difficulty. X-ray did not show any fracture or effusion. She does have some arthritis of the right ankle. Plan to treat with naproxen and she will be discharged to follow up with Orthopedics for further evaluation as an outpatient. There is no concern for Achilles tendon rupture, no calf pain or tenderness to suggest DVT. Differential Diagnosis Differential Diagnoses: The differential diagnosis associated with the presentation includes Arthritis Knee sprain Ankle sprain Contusion Tendonitis Radiology Impression Discussion of test interpretation with radiology: I have reviewed the radiologist's reading. Radiologist Impression: Findings: There is no fracture or dislocation. The ankle mortise is congruent. Moderate degenerative change in the midfoot. Calcaneal spur. Enthesophyte at the insertion of the Achilles tendon. Bone mineralization is normal. Soft tissue swelling. Impression: No fracture. This document has been electronically signed by: Neris Hernandez MD on 10/24/2024 18:13:21 Findings: There is no fracture or dislocation. No joint space narrowing or osteophytosis. Bone mineralization is normal. No knee joint effusion. Soft tissue swelling. Impression: No fracture or joint effusion. This document has been electronically signed by: Neris Hernandez MD on 10/24/2024 18:14:09 Discharge Plan Discharge Clinical Impression: Acute pain of right knee Patient Disposition: Home, Self-Care Instructions: Knee Pain (ED) Additional Instructions: Your x-ray of your knee does not show any fracture or joint effusion The x-ray of your ankle shows some arthritis but no fractures. Try naproxen twice daily for pain. You may also use ice and lidocaine patches I recommend that you follow up with Orthopedics as you may benefit from an outpatient MRI if your symptoms do not improve Prescriptions: New naproxen 500 mg tablet 500 mg PO BID PRN (Reason: pain) Qty: 20 0RF No Action ferrous sulfate 325 mg (65 mg iron) tablet 325 mg PO DAILY 30 Days Qty: 30 6RF cholecalciferol (vitamin D3) 25 mcg (1,000 unit) capsule 25 mcg PO DAILY 90 Days Qty: 90 1RF Referrals: [facility]geons [Provider Group] Referral Note: chronic right knee pain. negative x-rays Print Language: [place]
[2024-10-24 18:58] VITALS: BP 133/65; PULSE 65; RESP 18; O2SAT 99
[2024-10-24 18:59] VITALS: BP 133/65; PULSE 65; RESP 18; TEMP -17.7; TEMP 0; O2SAT 99
== END 2024-10-24 19:00 | disposition home or self-care (01) ==
PROVIDERS: Emergency Provider Emergency Medicine Emergency Medical Services; PCP Internal Medicine
DX: M79.604 Pain in right leg (principal); D64.9 Anemia, unspecified
CPT/HCPCS: 73564; 73610; 99283; 99284

== ENCOUNTER → 2024-10-24 16:22 | Outpatient (BNV) | payer OTHER, SELFPAY | PROVIDERS: Emergency Provider Emergency Medicine Emergency Medical Services; PCP Internal Medicine; Visit Provider Radiology Diagnostic Radiology | DX: M25.561 Pain in right knee (principal); M25.571 Pain in right ankle and joints of right foot | CPT/HCPCS: 73564; 73610 ==

== ENCOUNTER 2024-10-31 12:40 | Outpatient (REF) | payer OTHER, SELFPAY ==
--- NOTE | ~2024-10-31 | US_ITS ---
CLINICAL HISTORY: LEIOMYOMA Transabdominal and transvaginal pelvic ultrasound Comparison: 10/29/2022 Findings: Hysterectomy. No free fluid. Right ovary 1.9 x 1.2 x 2.1 cm. Left ovary 2.0 x 1.1 x 1.5 cm. No significant focal abnormality. Impression: No significant abnormality This document has been electronically signed by: Aurelio Nielsen MD on 10/31/2024 21:38:19
== END 2024-10-31 12:41 | disposition home or self-care (01) ==
LOC: HO.US 12:40
PROVIDERS: PCP Internal Medicine; Visit Provider Obstetrics & Gynecology
DX: D25.9 Leiomyoma of uterus, unspecified (principal)
CPT/HCPCS: 76830; 76856

== ENCOUNTER → 2024-10-31 12:56 | Outpatient (BNV) | payer OTHER, SELFPAY | PROVIDERS: PCP Internal Medicine; Visit Provider Radiology Diagnostic Radiology | DX: D25.9 Leiomyoma of uterus, unspecified (principal) | CPT/HCPCS: 76830; 76856 ==

== ENCOUNTER 2024-12-24 14:17 | Outpatient (AMB) | payer OTHER, SELFPAY ==
--- NOTE | 2024-12-24 14:18 | MHC.OFFVIS ---
Intake Visit Reasons: US Follow Up Client Delivery Manager Required: Yes Client Delivery Manager Language: Supervisor [employer] Services: Client Delivery Manager Present (in person) Client Delivery Manager Name: Marysol WILSON Information Interpreted: non-clinical & clinical Allergies No Known Allergies (No Known Allergies*) Allergy (Verified 12/24/24 14:18) HPI Comments Details: The patient is schedule telehealth visit for ultrasound follow-up done recently which showed the following: Findings: Hysterectomy. No free fluid. Right ovary 1.9 x 1.2 x 2.1 cm. Left ovary 2.0 x 1.1 x 1.5 cm. No significant focal abnormality. Impression: No significant abnormality [facility] Medical History (Updated 12/24/24 @ 14:51 by Shaka Wharton MD) Morbid obesity with BMI of 40.0-44.9, adult ASCUS with positive high risk HPV cervical Abnormal thyroid blood test Cervical low risk human papillomavirus (HPV) DNA test positive Moderate recurrent major depression Morbid obesity with BMI of 45.0-49.9, adult Physical exam Constipation by delayed colonic transit B12 deficiency Iron deficiency anemia Panic attacks Anxiety Depression Michael's disease Morbid obesity with BMI of 50.0-59.9, adult Lumbar radiculopathy Headache Pituitary microadenoma Anemia Surgical History (Updated 09/26/24 @ 15:54 by Shaka Wharton MD) History of hysterectomy History of endometrial ablation History of lumpectomy of right breast History of Lulu-en-Y gastric bypass History of tympanostomy tube placement History of sleeve gastrectomy History of laparoscopic cholecystectomy History of appendectomy History of tubal ligation Family History Father Hypertension Mother Hypertension Maternal Grandmother Leukemia Paternal Grandmother Myocardial infarction Hypertension Maternal Aunt History of breast cancer Maternal Aunt History of breast cancer Maternal Aunt History of breast cancer Paternal Aunt History of breast cancer Paternal Aunt History of breast cancer Social History Household Members: Family Housing: Apartment Are you a primary childcare center director to a significant other at home: No Do you presently have visiting nurse or other home services: No Alcohol intake: current Alcohol intake frequency: holidays/special occasions only Alcohol type: hard liquor Patient Tobacco Use Status: Never used Tobacco e-Cigarette/Vaping Use: Never Used Second Hand Smoke Exposure: No service: No Current occupational status: unemployed Sexual orientation: Straight/Heterosexual Gender identity: Female Cognitive needs: No Hearing needs: No Vision needs: Yes (glasses) Female Reproductive History Menstrual Age of Menarche: 10 Review of Systems Const All systems reviewed & are unremarkable except as noted in HPI and below Reports as per HPI and Reports no additional complaints GI Reports no additional complaints Reports no additional complaints Telehealth Telehealth Telehealth Platform: [facility] Location of provider rendering services: practice address Location of patient: address on file Patient Identification confirmed using: Name, : Yes Telehealth method: video Patient verbally consented to treatment: Yes Patient verbally consented to billing insurance company: Yes Patient informed of any privacy concerns related to visit: Yes Minutes spent on Phone/Video with Pt.: 5 Assessment & Plan Assessment & Plan (1) Encounter to discuss test results: Code(s): Z71.2 - Person consulting for explanation of examination or test findings Category: Medical Plan: Discussed with the patient the results of the ultrasound, the patient was reassured, all questions answered, the patient verbalized understanding I spent a total of 20 minutes reviewing the chart, talking to the patient via video and documenting in the medical record. Coding Level of Care Code Tele Est Pt Level 3 (91131) Diagnoses Encounter to discuss test results Z71.2
== END 2024-12-24 14:51 | disposition home or self-care (01) ==
LOC: HO.HWS 14:17
PROVIDERS: PCP Internal Medicine; Visit Provider Obstetrics & Gynecology
DX: Z71.2 Person consulting for explanation of examination or test findings (principal)
CPT/HCPCS: 99213

== ENCOUNTER 2024-12-31 15:15 | Outpatient (AMB) | payer OTHER, SELFPAY ==
--- NOTE | 2024-12-31 15:21 | A.OFFVIS_ITS ---
Vital Signs 12/31/24 15:27 Height 5 ft 2 in Weight 286 lb 9.615 oz BMI 52.4 BP 130/70 Blood Pressure Location Lt brachial Position Sitting Intake Visit Reasons: high risk breast CA Intake Note: Patient is seen in office for follow up visit, breast exam. Pt c/o: denies any concerns MRI:10/10/24 mm: 06/30/22 (DUE) Public Works Director Required: Yes Public Works Director Language: Bicycle [employer] Services: Public Works Director Present Public Works Director Name: Carmen WILSON Information Interpreted: non-clinical & clinical Fowl Blood Tester: Fowl Blood Tester Present Accompanied by: Self / Same As Patient Allergies No Known Allergies (No Known Allergies*) Allergy (Verified 12/31/24 15:27) Medication List - Last Reconciled 12/31/24 by Melchor Holland MD cholecalciferol (vitamin D3) 25 mcg PO DAILY 90 days ferrous sulfate 325 mg PO DAILY 30 days naproxen 500 mg PO BID PRN HPI Comments Details: 44-year-old female patient 44-year-old female patient returning for a high risk breast examination. She was determined to be at high risk for breast cancer due to a strong family history of breast cancer including a sister, 2 paternal aunts and 2 maternal aunts with breast cancer. She underwent genetic testing on 08/24/2021. This revealed no clinically significant genetic mutations and no variance of unknown significance. Her latest breast MRI performed on 10/10/2024 revealed no MR specific evidence of malignancy (BI-RADS 1 bilateral). She is scheduled for a follow-up annual mammogram on 01/10/2025 at the [facility]. Her last mammogram of 06/30/2022 revealed no mammographic evidence of malignancy (BI-RADS 1). She denies any ongoing breast symptoms in either breast. [facility] Medical History Morbid obesity with BMI of 40.0-44.9, adult ASCUS with positive high risk HPV cervical Abnormal thyroid blood test Cervical low risk human papillomavirus (HPV) DNA test positive Moderate recurrent major depression Morbid obesity with BMI of 45.0-49.9, adult Physical exam Constipation by delayed colonic transit B12 deficiency Iron deficiency anemia Panic attacks Anxiety Depression Michael's disease Morbid obesity with BMI of 50.0-59.9, adult Lumbar radiculopathy Headache Pituitary microadenoma Anemia Surgical History History of hysterectomy History of endometrial ablation History of lumpectomy of right breast History of Lulu-en-Y gastric bypass History of tympanostomy tube placement History of sleeve gastrectomy History of laparoscopic cholecystectomy History of appendectomy History of tubal ligation Family History Father Hypertension Mother Hypertension Maternal Grandmother Leukemia Paternal Grandmother Myocardial infarction Hypertension Maternal Aunt History of breast cancer Maternal Aunt History of breast cancer Maternal Aunt History of breast cancer Paternal Aunt History of breast cancer Paternal Aunt History of breast cancer Social History Household Members: Family Housing: Apartment Are you a primary healthcare facility administrator to a significant other at home: No Do you presently have visiting nurse or other home services: No Alcohol intake: current Alcohol intake frequency: holidays/special occasions only Alcohol type: hard liquor Patient Tobacco Use Status: Never used Tobacco e-Cigarette/Vaping Use: Never Used Second Hand Smoke Exposure: No service: No Current occupational status: unemployed Sexual orientation: Straight/Heterosexual Gender identity: Female Cognitive needs: No Hearing needs: No Vision needs: Yes (glasses) Female Reproductive History Menstrual Age of Menarche: 10 Review of Systems Const All systems reviewed & are unremarkable except as noted in HPI and below Physical Exam Vital Signs: Last Vital Signs BP 130/70 12/31/24 15:27 BMI result Body Mass Index 52.4 Const General: well developed Nutritional Appearance: well nourished Orientation/consciousness: patient oriented x3 Limitations: no limitations HEENT Head: Yes normocephalic and Yes atraumatic Eyes Sclerae: sclerae normal EOM: EOMs intact bilaterally Chest Other: Left breast: No skin change, no nipple retraction, no nipple discharge, no palpable mass, no enlarged lymph nodes. Right breast: No skin change, no nipple retraction, no nipple discharge, no palpable mass, no enlarged lymph nodes. Resp Effort & Inspection: normal respiratory effort, no cough and no respiratory distress Cardio Jugular venous distension: no JVD Rate: regular rate Rhythm: regular rhythm GI Inspection: Yes normal to inspection Palpation (GI): Soft to palpation, nontender, no guarding and not rigid Percussion: Yes normal to percussion Auscultation: normal bowel sounds Skin General skin exam: dry skin Rashes: no rashes Neuro General: patient oriented x3 and no focal motor deficits Extrem General: Yes full ROM and Yes no clubbing, cyanosis or edema Assessment & Plan Assessment & Plan (1) At high risk for breast cancer: Code(s): Z91.89 - Other specified personal risk factors, not elsewhere classified Category: Medical (2) Family history of breast cancer: Code(s): Z80.3 - Family history of malignant neoplasm of breast Category: Medical Plan 44-year-old female patient with a strong family history of breast cancer being followed for high risk. She will continue her annual mammography and breast MRI alternating every 6 months with twice yearly clinical breast exams encouraged. Examination today revealed no suspicious findings in either breast. She has been scheduled for a screening mammogram on 01/10/2025. She will follow up in 6 months for breast examination. Coding Level of Care Code Est Pt Level 3 (63529) Complex EM visit Add On G2211 Diagnoses At high risk for breast cancer Z91.89 Family history of breast cancer Z80.3
[2024-12-31 15:27] VITALS: BP 130/70; BMI 52.4
== END 2024-12-31 15:40 | disposition home or self-care (01) ==
LOC: HO.HGS 15:16
PROVIDERS: PCP Internal Medicine; Visit Provider Surgery
DX: Z91.89 Other specified personal risk factors, not elsewhere classified (principal); Z80.3 Family history of malignant neoplasm of breast
CPT/HCPCS: 99213

== ENCOUNTER → 2024-12-31 15:15 | Outpatient (BNVA) | payer OTHER, SELFPAY | PROVIDERS: PCP Internal Medicine; Visit Provider Surgery | DX: Z80.3 Family history of malignant neoplasm of breast (principal) | CPT/HCPCS: 99212 ==

== ENCOUNTER 2025-01-10 14:58 | Outpatient (REF) | payer OTHER, SELFPAY ==
--- NOTE | ~2025-01-10 | MM_ITS ---
EXAMINATION: MM SCREENING DIGITAL BREAST TOMOSYNTHESIS, BILATERAL CLINICAL INFORMATION: Screening. Asymptomatic. COMPARISON: Comparison made to multiple prior, most recent June 30, 2022, and most remote December 14, 2016. TECHNIQUE: Digital breast tomosynthesis is performed in mediolateral oblique and craniocaudal views along with computer-aided detection (CAD). Synthesized 2D images are generated from the tomosynthesis. FINDINGS: BREAST COMPOSITION: There are scattered areas of fibroglandular density. RIGHT BREAST: History of previous excisional biopsy. No significant masses, suspicious calcifications or other abnormalities are seen. LEFT BREAST: No significant masses, suspicious calcifications or other abnormalities are seen. MM/MM tomosynthesis screening BI IMPRESSION: BILATERAL BREASTS: Benign, no mammographic evidence of malignancy. Normal interval follow-up is recommended in 12 months. ASSESSMENT: BI-RADS: Category 2: Benign RECOMMENDATION: Routine annual mammography screening. FOLLOW-UP: 1 year F/U This examination should not preclude the clinical evaluation of a suspicious palpable abnormality. This patient's information was entered into a reminder system with a target due date for their next mammogram. Electronically signed by: Nikita Champion MD 01/14/2025 07:09 AM EDT
== END 2025-01-10 14:59 | disposition home or self-care (01) ==
LOC: HO.MAMMO 14:58
PROVIDERS: PCP Internal Medicine; Visit Provider Obstetrics & Gynecology
DX: Z12.31 Encounter for screening mammogram for malignant neoplasm of breast (principal)
CPT/HCPCS: 77063; 77067

== ENCOUNTER → 2025-01-10 15:00 | Outpatient (BNV) | payer OTHER, SELFPAY | PROVIDERS: PCP Internal Medicine; Visit Provider Radiology Body Imaging | DX: Z12.31 Encounter for screening mammogram for malignant neoplasm of breast (principal) | CPT/HCPCS: 77063; 77067 ==

== ENCOUNTER 2025-02-27 16:31 | Outpatient (AMB) | payer OTHER, SELFPAY ==
[2025-02-27 16:32] VITALS: BP 120/82; PULSE 91; O2SAT 98; BMI 52.9
--- NOTE | 2025-02-27 16:32 | MHC.PC.OV ---
Vital Signs 02/27/25 16:32 Height 5 ft 2 in Weight 289 lb BMI 52.9 BP 120/82 Blood Pressure Location Lt brachial Position Sitting Pulse 91 Pulse Source Pulse Oximeter Pulse Oximetry (%) 98 Oxygen Delivery Method Room Air Intake Visit Reasons: annual physical Limb Driver Required: No Accompanied by: Self / Same As Patient Allergies No Known Allergies (No Known Allergies*) Allergy (Verified 02/27/25 16:45) Medication List - Last Reconciled 02/27/25 by Ila Borden MD cholecalciferol (vitamin D3) 25 mcg PO DAILY 90 days ferrous sulfate 325 mg PO DAILY 30 days naproxen 500 mg PO BID PRN Tobacco use date assessed: 02/27/25 Dental Screening Dental Screen Date: 02/27/25 Did you have a dental visit in the last 12 months?: Yes Did you have a dental problem in the last 6 months where you did not have access to dental care?: No Was dental information given to patient?: Patient has dentist HPI HPI Comments History of Present Illness Details The patient is a 44-year-old female presenting for an annual physical exam. She reports ankle pain, which was diagnosed as arthritis during an emergency department visit a few months ago for severe pain. During that visit, her knees were also evaluated, but no abnormalities were seen. She has also recently noticed swelling in her legs and that one leg appears larger than the other. She has super super obese and was advised to do diet and exercise. BMI goal is less than 30. Mammogram up-to-date. No need for Pap smear due to hysterectomy. Tdap vaccine and flu vaccine administered today. She has pituitary macro adenoma MRI of the brain will be ordered. Her past surgical history is significant for a hysterectomy for uterine myomas, which was preceded by an endometrial ablation. She also has a history of a right breast mass removal in 2020, a sleeve gastrectomy in 2013, and a gastric bypass in 2018. Other past procedures include an appendectomy, cholecystectomy, tubal ligation, and placement of tubes in her ears. The patient's current medications include vitamin D, iron, and naproxen. She has no known drug allergies. Both of her parents are alive and have high blood pressure. [facility] Medical History (Updated 02/27/25 @ 17:40 by Ila Borden MD) Mild major depression Morbid obesity with BMI of 40.0-44.9, adult ASCUS with positive high risk HPV cervical Abnormal thyroid blood test Cervical low risk human papillomavirus (HPV) DNA test positive Moderate recurrent major depression Morbid obesity with BMI of 45.0-49.9, adult Physical exam Constipation by delayed colonic transit B12 deficiency Iron deficiency anemia Panic attacks Anxiety Depression Michael's disease Morbid obesity with BMI of 50.0-59.9, adult Lumbar radiculopathy Headache Pituitary microadenoma Anemia Surgical History History of hysterectomy History of endometrial ablation History of lumpectomy of right breast History of Lulu-en-Y gastric bypass History of tympanostomy tube placement History of sleeve gastrectomy History of laparoscopic cholecystectomy History of appendectomy History of tubal ligation Family History Father Hypertension Mother Hypertension Maternal Grandmother Leukemia Paternal Grandmother Myocardial infarction Hypertension Maternal Aunt History of breast cancer Maternal Aunt History of breast cancer Maternal Aunt History of breast cancer Paternal Aunt History of breast cancer Paternal Aunt History of breast cancer Social History Household Members: Family Housing: Apartment Are you a primary behavioral health care coordinator to a significant other at home: No Do you presently have visiting nurse or other home services: No Alcohol intake: current Alcohol intake frequency: holidays/special occasions only Alcohol type: hard liquor Patient Tobacco Use Status: Never used Tobacco e-Cigarette/Vaping Use: Never Used Second Hand Smoke Exposure: No service: No Current occupational status: unemployed Sexual orientation: Straight/Heterosexual Gender identity: Female Cognitive needs: No Hearing needs: No Vision needs: Yes (glasses) Female Reproductive History Menstrual Age of Menarche: 10 Questionnaire PHQ-9 Over the last 2 weeks, how often have you been bothered by any of the following problems? 1. Little interest or pleasure in doing things: not at all 2. Feeling down, depressed, or hopeless: not at all 3. Trouble falling or staying asleep, or sleeping too much: more than half the days 4. Feeling tired or having little energy: several days 5. Poor appetite or overeating: not at all 6. Feeling bad about yourself - or that you are a failure or have let yourself or your family down: not at all 7. Trouble concentrating on things, such as reading the newspaper or watching television: not at all 8. Moving or speaking so slowly that other people could have noticed. Or the opposite - being so fidgety or restless that you have been moving around a lot more than usual: not at all 9. Thoughts that you would be better off or of hurting yourself in some way: not at all Total score: 3 Depression Screening Interpretation: Negative Depression Screening Done: Yes 88024 - PHQ-9 Billing: Yes Source: Developed by Drs. Marek Calero, Kaela Nava, Chris Mendoza and colleagues, with an educational jeronimo from [email or web address]. Thrive Questionnaire Date Thrive assessed: 02/27/25 I am a: Patient What is your living situation today?: I have a steady place to live Within the past 12 months, did the food you bought not last and you didn't have the money to get more?: I choose not to answer this question Within the past 12 months, did you worry whether your food would run out before you got money to buy more?: I choose not to answer this question Do you have trouble paying for medicines?: No Do you have trouble getting transportation to medical appointments?: No Do you have trouble paying your heating and electricity bill?: No Do you have trouble taking care of your child, family member or friend?: No Do you have trouble with day-to-day activities such as bathing, preparing meals, shopping, managing finances, etc.?: No Are you currently unemployed and looking for a job?: No Are you interested in more education?: No Please select the resources that you would like help with: None Currently or been in a relationship where the following occur: No concerns reported THRIVE Score: 0 AUDIT C Alcohol Use Questionnaire (AUDIT-C) 1. How often do you have a drink containing alcohol?: Never 3. How often do you have six or more drinks on one occasion?: Never Total Score: 0 ROCHELLE-7 AMB Questionnaire ROCHELLE-7 Date ROCHELLE - 7 assessed: 02/27/25 Feeling nervous, anxious, or on edge: 0 = Not at all Not being able to stop or control worryin = Not at all Worrying too much about different things: 0 = Not at all Trouble relaxin = Not at all Being so restless that it is hard to sit still: 0 = Not at all Becoming easily annoyed or irritable: 0 = Not at all Feeling afraid as if something awful might happen: 0 = Not at all Total ROCHELLE-7 score (0-4 normal; 5-9 mild; 10-14 moderate; 15-21 severe): 0 Source: Developed by Drs. Marek Calero, Kaela Nava, Chris Mendoza and colleagues, with an educational jeronimo from [email or web address]. ROCHELLE-7 Assessment Billing ROCHELLE-7 Assessment Tool: ROCHELLE-7 Assessment 39205 Review of Systems Const All systems reviewed & are unremarkable except as noted in HPI and below Card Denies chest pain at rest, Denies chest pain with activity, Denies edema, Denies irregular heart rhythm, Denies claudication, Denies dyspnea, Denies dyspnea on exertion, Denies orthopnea, Denies paroxysmal nocturnal dyspnea and Denies slow heart rate Resp Denies cough, Denies dyspnea and Denies dyspnea on exertion GI Denies abdominal pain, Denies change in bowel habits, Denies excessive flatus, Denies nausea and Denies vomiting Physical exam (Primary Care) Vital Signs: Last Vital Signs Pulse 91 02/27/25 16:32 BP 120/82 02/27/25 16:32 Pulse Ox 98 02/27/25 16:32 Oxygen Delivery Method Room Air 02/27/25 16:32 BMI result Body Mass Index 52.9 BMI Assessment/Plan discussion: High BMI High, discussed plan: lifestyle, weight reduction, dietary and physical activity Tobacco/Smoking Status: Tobacco use Status Tobacco use date assessed 02/27/25 02/27/25 16:37 Patient Tobacco Use Status Never used Tobacco 02/27/25 16:37 e-Cigarette/Vaping Use Never Used 02/27/25 16:37 PHQ-9: PHQ-9 Score PHQ-9: Total score 3 02/27/25 16:50 Depression Screening Interpretation: Negative Thrive Assessment: Date of Thrive Assessment Date Thrive assessed 02/27/25 02/27/25 16:37 Currently or been in a relationship where the following occur: No concerns reported HENMT Head: Yes normal to inspection, Yes normocephalic and Yes atraumatic Ears: external ears normal Eyes General: appearance normal, both eyes and all related structures Eyelids: Yes eyelids normal Conjunctivae: conjunctivae normal Neck Neck: Yes normal visual inspection and Yes supple Resp Effort & Inspection: normal respiratory effort Auscultation: clear to auscultation bilaterally Cardio Jugular venous distension: no JVD Rate: regular rate Rhythm: regular rhythm Heart sounds: S1 normal heart sound present and S2 normal heart sound present GI Inspection: Yes normal to inspection Palpation (GI): Soft to palpation and nontender Auscultation: normal bowel sounds Skin General skin exam: no rashes or lesions noted Neuro General: no focal motor deficits Extrem General: Yes full ROM Psych Appearance: grossly normal Office Procedures Flu Questionnaire Does the patient have a severe egg allergy?: No Does the patient have severe life threatening allergies?: No Does the patient have a fever or illness today?: No Has the patient ever had Guillain-[place] Syndrome?: No Has the patient ever had any past reaction to a flu shot?: No Immunizations Fluarix [id number] (PF) 45 mcg (15 mcg x 3)/0.5 mL IM syringe Performing Provider: Ila Borden MD Performing Location: [facility] [place] [facility] Administered by: Elidia Escobar CMA on 02/27/25 16:59 Dose Route Admin Location Dispensed Lot Number Expiration Date FORMERLY NAMED [facility] Environmental Services Technician 0.5 mL IM Left Deltoid 0.5 mL [id number] 10/14/25 77772-468-40 [email or web address] V[employer] Given Date VIS Provided VIS Publication Date 02/27/25 Single Vaccine 24 Eligibility Eligibility Date Funding Source Not [facility] Eligible 02/27/25 Private Boostrix Tdap 2.5 Lf unit-8 mcg-5 Lf/0.5 mL intramuscular syringe Performing Provider: Ila Borden MD Performing Location: [facility] [place] [facility] Administered by: Elidia Escobar CMA on 02/27/25 16:59 Dose Route Admin Location Dispensed Lot Number Expiration Date [place] Environmental Services Technician 0.5 mL IM Left Deltoid 0.5 mL [id number] 09/27/27 36650-311-41 [employer] Total Dispensed Waste 0.5 mL 0 % VIS Given Date VIS Provided VIS Publication Date 02/27/25 Single Vaccine 20 Eligibility Eligibility Date Funding Source Not [facility] Eligible 02/27/25 Private Coding Level of Care Code Est Pt Level 3 (35122) Est Pt Prev Care 40-64y(74911) Diagnoses Physical exam Z00.00 Left knee pain M25.562 Right ankle pain M25.571 Left ankle pain M25.572 Right knee pain M25.561 Pituitary microadenoma D35.2 BMI 50.0-59.9, adult Z68.43 Additional Codes PHQ-9 - 71927 - PHQ-9 Billing: Yes ([id number]) ROCHELLE-7 Assessment Billing - ROCHELLE-7 Assessment Tool: ROCHELLE-7 Assessment 36264 ([id number]) Time Spent (min) 34 Assessment & Plan Assessment & Plan (1) Physical exam: Code(s): Z00.00 - Encounter for general adult medical examination without abnormal findings Category: Medical (2) Left knee pain: Code(s): M25.562 - Pain in left knee Category: Medical (3) Right ankle pain: Code(s): M25.571 - Pain in right ankle and joints of right foot Category: Medical (4) Left ankle pain: Code(s): M25.572 - Pain in left ankle and joints of left foot Category: Medical (5) Right knee pain: Code(s): M25.561 - Pain in right knee Category: Medical (6) Pituitary microadenoma: Code(s): D35.2 - Benign neoplasm of pituitary gland Category: Medical (7) BMI 50.0-59.9, adult: Code(s): Z68.43 - Body mass index [BMI] 50.0-59.9, adult Category: Medical Plan Plan 1. Annual Physical Examination An order for labs will be placed as they have not been performed in a while. Refills for vitamin D, iron, and naproxen will be provided. 2. Arthritis Of Ankle And Leg Edema The patient reports a prior diagnosis of ankle arthritis from an ED visit. She also complains of leg swelling and asymmetry, which will be evaluated with a physical exam of the lower extremities. 3. Super super obese Advised diet and exercise. Orders: Orders Influenza [id number] Immunization Today Z23 - Encounter for immunization XR knee RT 2V Today M25.561 - Pain in right knee XR ankle RT 2V Today M25.571 - Pain in right ankle and joints of right foot Complete Blood Count Auto Diff Today D64.9 - Anemia, unspecified Lipid Panel Today E78.5 - Hyperlipidemia, unspecified Thyroid Stimulating Hormone Today E06.3 - Autoimmune thyroiditis TDaP Immunization Today Z23 - Encounter for immunization XR knee LT 2V Today M25.562 - Pain in left knee XR ankle LT 2V Today M25.572 - Pain in left ankle and joints of left foot IRON PROFILE Today D64.9 - Anemia, unspecified Vitamin B12 and Folate Today E53.8 - Deficiency of other specified B group vitamins Vitamin D 25-OH Total Today E55.9 - Vitamin D deficiency, unspecified Comprehensive [place]. Panel Fast Today Z00.00 - Encounter for general adult medical examination without abnormal findings MR head/brain wo con Today D35.2 - Benign neoplasm of pituitary gland Referrals Orthopedics Referral M25.561 - Pain in right knee, M25.562 - Pain in left knee Medications: Refilled cholecalciferol (vitamin D3) 25 mcg PO DAILY 90 caps 1RF 90 days ferrous sulfate 325 mg PO DAILY 30 tabs 6RF 30 days naproxen 500 mg PO BID PRN 20 tabs 0RF pain
== END 2025-02-27 17:08 | disposition home or self-care (01) ==
LOC: HO.HMCH 16:32
PROVIDERS: PCP Internal Medicine; Visit Provider Internal Medicine
DX: Z00.00 Encounter for general adult medical examination without abnormal findings (principal); D35.2 Benign neoplasm of pituitary gland; Z68.43 Body mass index [BMI] 50.0-59.9, adult; M25.562 Pain in left knee; M25.571 Pain in right ankle and joints of right foot; M25.572 Pain in left ankle and joints of left foot; M25.561 Pain in right knee; Z23 Encounter for immunization

== ENCOUNTER → 2025-02-27 16:31 | Outpatient (BNVA) | payer OTHER, SELFPAY | PROVIDERS: PCP Internal Medicine; Visit Provider Internal Medicine | DX: Z00.00 Encounter for general adult medical examination without abnormal findings (principal); E66.09 Other obesity due to excess calories; M25.562 Pain in left knee; M25.571 Pain in right ankle and joints of right foot; M25.572 Pain in left ankle and joints of left foot; M25.561 Pain in right knee; D35.2 Benign neoplasm of pituitary gland; Z68.43 Body mass index [BMI] 50.0-59.9, adult | CPT/HCPCS: 90471; 90472; 90656; 90715; 96127; 99212; 99396 ==

== ENCOUNTER 2025-02-28 15:09 | Outpatient (REF) | payer OTHER, SELFPAY ==
--- NOTE | ~2025-02-28 | XR_ITS ---
EXAMINATION: X-ray bilateral ankles CLINICAL INFORMATION: Patent bilateral ankles COMPARISON: X-ray right ankle 10/24/2024 TECHNIQUE: Right ankle 3 views. Left ankle 3 views. FINDINGS: Right ankle: No acute fracture or dislocation. Ankle mortise is congruent. No talar dome OCD. Moderate degenerative changes in the midfoot. Plantar and posterior calcaneal enthesopathy.. Soft tissue swelling. Left ankle: No acute fracture or dislocation. Ankle mortise. No talar dome OCD. No erosions. No abnormal soft tissue calcification. Soft tissue swelling. XR/XR Ankle Umberto min 3V IMPRESSION: Right ankle: No acute fracture Left ankle: No acute fracture. Electronically signed by: Loco Mccormick MD 02/28/2025 04:43 PM EST
--- NOTE | ~2025-02-28 | XR_ITS ---
EXAMINATION: X-ray bilateral knees CLINICAL INFORMATION: Pain COMPARISON: Right knee 10/24/2024 x-ray TECHNIQUE: Right knee 2 views. Left knee 2 views. FINDINGS: Right knee: No fracture or dislocation. No significant joint space narrowing. No erosion. No significant effusion. No abnormal soft tissue calcification. Left knee: No fracture or dislocation. No significant joint space narrowing. No erosions. Evaluation for effusion is limited by rotated positioning soft tissue density projected over the suprapatellar region. No abnormal soft tissue calcification. XR/XR Knee Umberto 1or 2V IMPRESSION: Right knee: No acute findings Left knee: No acute findings. Limited evaluation for joint effusion. Electronically signed by: Loco Mccormick MD 02/28/2025 05:17 PM JAX
== END 2025-02-28 15:10 | disposition home or self-care (01) ==
LOC: HO.XRAY 15:09
PROVIDERS: PCP Internal Medicine; Visit Provider Internal Medicine
DX: M25.572 Pain in left ankle and joints of left foot (principal); M25.571 Pain in right ankle and joints of right foot; M25.562 Pain in left knee; M25.561 Pain in right knee
CPT/HCPCS: 73560; 73610

== ENCOUNTER 2025-03-15 08:10 | Outpatient (REF) | payer OTHER, SELFPAY ==
[2025-03-15 08:33] LABS: MANUAL DIFF FLAG NO
[2025-03-15 09:57] LABS: Hematocrit 34.7 % (37.0-47.0); Hemoglobin 9.6 g/dl (12.0-16.0); Imm Gran Abs Auto 0.03 X10*3/uL (0.00-0.03); Imm Gran Pct Auto 0.4 % (0.0-0.4); Lymphocytes Absolute Auto 2.8 X10*3/uL (1.2-4.9); Mean Corpuscular HGB Conc 27.7 g/dl (31.0-35.0); Mean Corpuscular Hemoglobin 19.0 pg (27.0-33.0); Mean Corpuscular Volume 68.7 fL (80.0-98.0); NRBC Abs Auto 0.000 X10*3/uL (0.0-0.012); NRBC Pct Auto 0.0 /100WBC (0.0-0.2); Platelet Count 446 X10*3/uL (160-400); Red Blood Count 5.05 X10*6/uL (4.20-5.50); White Blood Count 8.1 X10*3/uL (4.8-10.8)
[2025-03-15 10:43] LABS: Alanine Aminotransferase 14 U/L (0-31); Albumin Level 4.0 g/dL (3.5-5.0); Alkaline Phosphatase 89 U/L (39-117); Anion Gap 14 (12-20); Aspartate Amino Transferase 20 U/L (5-31); Blood Urea Nitrogen 18 mg/dL (9-16); Calcium 9.3 mg/dL (8.4-10.2); Carbon Dioxide 22 mmol/L (22-29); Chloride 110 mmol/L (96-108); Cholesterol 191 mg/dL (<200); Estimated Glomerular Filt Rate > 60; HDL Cholesterol 54 mg/dL (>40); Iron 27 mcg/dL (30-160); Percent Iron Saturation 7 % (15-50); Potassium 4.5 mmol/L (3.3-5.1); Sodium 141 mmol/L (135-145); Total Iron Binding Capacity 395 mcg/dL (228-428); Total Protein 7.4 g/dL (6.5-8.0); Triglycerides 173 mg/dL (<150); Unsaturated Iron Binding 368 ug/dL
[2025-03-15 11:03] LABS: Thyroid Stimulating Hormone 0.31 uIU/mL (0.32-4.0)
[2025-03-15 11:04] LABS: Folate 11.3 ng/mL (> or = 4.0); Vitamin B12 256 pg/mL (200-900)
== END 2025-03-15 08:11 | disposition home or self-care (01) ==
LOC: HO.LAB 08:10
PROVIDERS: PCP Internal Medicine; Visit Provider Internal Medicine
DX: Z00.00 Encounter for general adult medical examination without abnormal findings (principal); E53.8 Deficiency of other specified B group vitamins; E06.3 Autoimmune thyroiditis; E55.9 Vitamin D deficiency, unspecified; E78.5 Hyperlipidemia, unspecified; D64.9 Anemia, unspecified
CPT/HCPCS: 36415; 80053; 80061; 82306; 82607; 82746; 83540; 84443; 85025